=== PATIENT | male | born 1935 | race Caucasian/White ===

== ENCOUNTER → 2018-09-08 | Outpatient (CLI) | payer BC, MEDICARE, OTHER ==
--- NOTE | 2018-09-09 07:30 | CT ---
EXAMINATION TYPE: CT chest w con DATE OF EXAM: 09/08/2018 COMPARISON: NONE HISTORY: abnormal lung findings CT DLP: 188.7 mGycm. Automated Exposure Control for Dose Reduction was Utilized. TECHNIQUE: CT scan of the thorax is performed following with IV Contrast, patient injected with 100 mL of Isovue 300. FINDINGS: LUNGS: There is background of advanced underlying emphysematous change. There is left apical heteroge neous mass abutting the lateral pleura measuring 5.3 x 6.2 cm transversely axial image 11. Mass measu res roughly 4.9 cm craniocaudal dimension abutting the lung apex not definitively invading chest wall or obstructing supraclavicular vessels. A few additional scattered small nodules of uncertain significance. For reference 4 mm subpleural nod ule or nodular opacity axial image 38 near level of lingula. For reference 3 mm right middle lobe nod ule axial image 48. Elevated left hemidiaphragm is seen. No pleural effusion or pneumothorax is evident. Tracheobronchial tree is patent. No suspicious consolidation is present. MEDIASTINUM: There are no greater than 1 cm hilar or mediastinal lymph nodes. No cardiomegaly or pe ricardial effusion is seen. There is moderate to severe 3 vessel coronary artery calcification. OTHER: There is nonspecific 2.0 x 1.8 cm cm right adrenal mass axial image 16 which metastatic lesion cannot be excluded IMPRESSION: 1. Background of advanced emphysematous change with lateral left apical mass abutting pleura strongly suspicious for neoplasm. Nonspecific right adrenal 2.0 cm mass in which metastatic disease cannot BE excluded. Imaging guided biopsy for tissue sampling can be performed if desired.
== END ==
LOC: RADCTMAIN 16:33
PROVIDERS: ATTEND Physician Assistant Medical
DX: J43.9 Emphysema, unspecified (principal)
CPT/HCPCS: 82565; 84520; 71260; 36415; Q9967

== ENCOUNTER 2018-10-08 09:40 | Day surgery (SDC) | payer MEDICARE, BC ==
[2018-10-05 10:30] VITALS: BMI 19.9
[~2018-10-08 09:40] MED LIST: ALBUTEROL NEB (CONC) 2.5 MG/0.5 ML INHALATION ONE; ATROPINE SULFATE 0.4 MG/ML 1 ML VIAL IM ONE; DEXAMETHASONE SOD PHOSPHATE 10 MG/ML 1 ML VIAL IV ONE; HYDROmorphone 0.5 MG/0.5 ML SYRINGE IVP PRN; LACTATED RINGERS 1,000 ML IV SCH; LIDOCAINE 1% 20 ML VIAL (10MG/ML) FOR IV START INTRADERMA PRN; LIDOCAINE 2% (PF) 20 MG/ML 10 ML AMP INHALATION ONE; LIDOCAINE VISCOUS 300 MG/15 ML CUP MUCOUS MEM ONE; MIDAZOLAM 2 MG/2 ML VIAL IV PRN; ONDANSETRON 4 MG/2 ML VIAL IVP ONE; SCOPOLAMINE 1.5MG/72HR PATCH TRANSDERM ONE; SODIUM CHLORIDE 0.9% 1,000 ML IV SCH
[2018-10-08] MEDS ORDERED: ROCURONIUM BROMIDE 10 MG/ML 10 ML VIAL IV ONE (12:41)
[2018-10-08] MEDS ORDERED: PHENYLEPHRINE-0.9% NACL SYG 1 MG/10 ML SYRINGE ONE (12:41)
[2018-10-08] MEDS ORDERED: NEOSTIGMINE 1 MG/ML 10 ML VIAL ONE (12:41)
[2018-10-08] MEDS ORDERED: PROPOFOL 10 MG/ML 20 ML VIAL IV ONE (12:41)
[2018-10-08] MEDS ORDERED: GLYCOPYRROLATE 0.2 MG/ML 2 ML VIAL ONE (12:41)
[2018-10-08] MEDS ORDERED: LIDOCAINE 1% INJ 10MG/ML (20 ML MDV) ONE (12:41)
[2018-10-08] MEDS ORDERED: LACTATED RINGERS 1,000 ML IV ONE (13:56)
[2018-10-08 14:10] VITALS: RESP 16; TEMP 97
--- NOTE | 2018-10-08 14:10 | CT ---
EXAMINATION TYPE: CT Chest wo zonia Matta Protocol DATE OF EXAM: 10/08/2018 COMPARISON: 09/08/2018 HISTORY: 83-year-old male for bronchial navigation, PreOp scan TECHNIQUE: Contiguous axial scanning of the chest without IV contrast. Both inspiratory and expirator y views were obtained for navigational purposes. Coronal and sagittal reconstructions performed. CT DLP: 511 mGycm Automated exposure control for dose reduction was used. FINDINGS: Heart normal size without pericardial effusion. Mild coronary vessel calcifications. Aortic valvular calcifications. Aorta root appears aneurysmal at 4.3 cm. Moderate arthroscopic arch c alcifications with conventional arch vessel branching anatomy. Upper descending thoracic aorta aneury smal at 3.6 cm. Mid descending thoracic aorta mildly aneurysmal at 3.2 cm. Scattered nonenlarged mediastinal lymph nodes are demonstrated. There is moderately advanced emphysema anomaly in the upper lungs. There is a tumor within the latera l left apex measuring 7.6 cm. The mass tightly abuts the pleural surface and early invasion into the parietal pleura or chest wall is difficult to exclude such as within the first intercostal space, axi al image 12. 3 mm right middle lobe pulmonary nodule is unchanged, nonspecific. No consolidation or pleural effusion. Visualized upper abdomen shows moderate atherosclerotic calcifications in the abdominal aorta and a t iny fatty embolus or hernia. 2 cm right adrenal nodule shows attenuation of 16 Hounsfield units which is indeterminate Bones: No osseous destructive process. IMPRESSION: IMAGING PERFORMED FOR ENDOBRONCHIAL NAVIGATION PURPOSES. REDEMONSTRATED LATERAL LEFT APICAL 7.6 CM MA SS WITH POSSIBLE EARLY PARIETAL PLEURA/CHEST WALL INVASION PARTICULARLY IN THE REGION OF THE FIRST IN TERCOSTAL SPACE. BACKGROUND OF COPD WITH MODERATE EMPHYSEMA. STABLE 3 MM RIGHT MIDDLE LOBE PULMONARY NODULE. 2 CM RIGHT ADRENAL NODULE HAS ATTENUATION OF 16 HOUNSFIELD UNITS WHICH IS SOMEWHAT LOW BUT INDETERMIN ATE. ADRENAL ADENOMA IS A DIFFERENTIAL CONSIDERATION RATHER THAN METASTATIC DISEASE. DIFFUSE ANEURYSMAL THORACIC AORTA (ROOT 4.3 CM AND UPPER DESCENDING 3.6 CM).
--- NOTE | 2018-10-08 14:31 | PCN ---
PROCEDURE NOTE NAVIGATIONAL BRONCHOSCOPY: The operators were Dr. Mcgee and Dr. Hoskins. The patient was done in the operating, room #3. He was done under general anesthesia. Dr. Prajapati and SAM Masterson provided anesthesia. There was informed consent. There was universal timeout. After the patient was properly anesthetized and sedated, the bronchoscope was inserted through the bronchoscope adapter, connected to the endotracheal tube. Under the computer guided images of the electromagnetic navigational device, we were able to localize the lesion in the left upper lobe. We did transbronchial biopsies. We did probably 6 or 7 of those. In addition, we did brushes to the left upper lobe and then transbronchial needle aspiration biopsies. We also washed that area. We did have Pathology standing by. They looked at the TBNAs and said that they were positive for [id number] lung cancer. The patient tolerated the procedure well. Will do a chest x-ray. The patient will be recovered. There was no immediate complications. The patient will follow up with me in the office. MMODL / IJN: [id number] /
--- NOTE | 2018-10-08 14:38 | XR ---
EXAMINATION TYPE: XR chest 1V portable DATE OF EXAM: 10/08/2018 Comparison: CT same day Clinical History: 83-year-old male POST LT LUNG BX Findings: Heart normal size. Aorta within normal limits. Moderate emphysema. Lateral left apical masses demonst rated. Some adjacent groundglass could relate to postbiopsy changes. No appreciable pneumothorax. The re is asymmetric widening of the left posterior second intercostal space that may support some early chest wall invasion. No appreciable pneumothorax. Impression: COPD with lateral left apical mass. Some mild surrounding groundglass could reflect postbiopsy change s. Difficult to exclude early chest wall invasion given asymmetric widening of the left posterior sec ond intercostal space. No appreciable pneumothorax.
[2018-10-08 15:15] VITALS: BP 123/59; PULSE 61
== END 2018-10-08 15:57 | disposition home or self-care (01) ==
LOC: ORWHC2ENDO 09:40
PROVIDERS: ATTEND Internal Medicine Critical Care Medicine
DX: C34.12 Malignant neoplasm of upper lobe, left bronchus or lung (principal); J44.9 Chronic obstructive pulmonary disease, unspecified; I10 Essential (primary) hypertension; Z85.46 Personal history of malignant neoplasm of prostate; Z85.51 Personal history of malignant neoplasm of bladder; Z79.1 Long term (current) use of non-steroidal anti-inflammatories (NSAID); Z79.899 Other long term (current) drug therapy; Z87.891 Personal history of nicotine dependence; Z79.82 Long term (current) use of aspirin
CPT/HCPCS: 88104; 88108; 88305; 88173; 88342; 88341; 71045; 71250; 31628; 31623; 31627; J1100; J2710; J2405; J2001; J2370; J2704; 31624; 31625; 31633

== ENCOUNTER → 2018-10-10 | Outpatient (CLI) | payer MEDICARE, BC ==
--- NOTE | 2018-10-11 15:43 | PE ---
EXAMINATION TYPE: PET CT fusion skull to thigh DATE OF EXAM: 10/10/2018 COMPARISON: CT chest 09/08/2018 Prior PET/CT: None HISTORY: Lung nodule, history of prostate cancer TECHNIQUE: Following the intravenous administration of 13.33 mCi of F-18 FDG, whole body images are performed from the skull base to the midthigh. Images are reviewed on the computer in the coronal, a xial, and sagittal planes. Reconstructed rotating images are created on independent workstation and reviewed on the computer. A localization and attenuation correction CT is performed in conjunction with the PET scan. DLP: 337.04 mGycm SCAN: Initial Blood glucose: 100 mg/dL Average Mediastinum SUV: 1.21 Average Liver SUV: 1.58 FINDINGS: NECK: Some muscular uptake is along the anterior neck. This is symmetrical and bilateral. No suspici ous uptake is evident. THORAX: There is a large left apical mass with a marked increase SUV of 9.47. Primary and metastatic disease considered. No suspicious uptake within the hilum is evident. ABDOMEN: No suspicious uptake PELVIS: No suspicious uptake. Brachii therapy seeds are present. Suspicious uptake within the prostat e is not identified. OSSEOUS STRUCTURES: No abnormal uptake LOCALIZATION CT: Ascending thoracic aorta which is calcified measures 3.2 cm. The main pulmonary clari ry the bifurcation measures 2.2 cm. Left apical mass measures approximately 6.9 cm in diameter. No tapia spicious enlarged mediastinal adenopathy is evident. Moderate coronary artery calcifications present. There is a 0.3 cm inferior pole nonobstructing renal stone. COMPARISON: Lung mass appears larger than the comparison study dated 09/08/2018, previously measuring 6 .1 cm. IMPRESSION: 1. Left apical mass compatible with neoplasm. Primary and metastatic disease could be considered. 2. No suspicious additional foci of uptake to suggest metastatic disease.
== END | disposition home or self-care (01) ==
LOC: RADPETMAIN 13:42
PROVIDERS: ATTEND Internal Medicine Critical Care Medicine
DX: R91.8 Other nonspecific abnormal finding of lung field (principal)
CPT/HCPCS: 78815; A9552

== ENCOUNTER → 2018-11-09 | Outpatient (CLI) | payer MEDICARE, BC ==
[2018-11-09 15:21] LABS: Basophils % (A) 0 %; Eosinophils % (A) 0 %; HCT 34.1 % (39.0-53.0); HGB 10.5 gm/dL (13.0-17.5); Hypochromasia Slight; Lymphocytes % (A) 22 %; MCH 28.3 pg (25.0-35.0); MCHC 30.7 g/dL (31.0-37.0); MCV 92.1 fL (80.0-100.0); Monocytes # (A) 0.7 k/uL (0-1.0); Monocytes % (A) 7 %; Neutrophils # (A) 6.2 k/uL (1.3-7.7); Neutrophils % (A) 67 %; Platelet Count 478 k/uL (150-450); RDW 14.6 % (11.5-15.5); WBC 9.2 k/uL (3.8-10.6)
[2018-11-09 15:28] LABS: Partial Thromboplastin Time 26.5 sec (22.0-30.0); Prothrombin Time 10.6 sec (9.0-12.0)
[2018-11-09 15:44] LABS: Anion Gap 4 mmol/L; Blood Urea Nitrogen 15 mg/dL (9-20); Carbon Dioxide 29 mmol/L (22-30); Chloride 106 mmol/L (98-107); Potassium 4.5 mmol/L (3.5-5.1); Sodium 139 mmol/L (137-145)
== END | disposition home or self-care (01) ==
LOC: LABPAT 11-05 15:45
PROVIDERS: ATTEND Thoracic Surgery (Cardiothoracic Vascular Surgery)
DX: Z01.812 Encounter for preprocedural laboratory examination (principal); C34.12 Malignant neoplasm of upper lobe, left bronchus or lung
CPT/HCPCS: 36415; 80051; 82565; 84520; 85025; 85610; 85730

== ENCOUNTER → 2018-11-10 | Outpatient (CLI) | payer MEDICARE, BC | END | disposition home or self-care (01) | LOC: LABPAT 12:01 | PROVIDERS: ATTEND Thoracic Surgery (Cardiothoracic Vascular Surgery) | DX: Z01.812 Encounter for preprocedural laboratory examination (principal); C34.12 Malignant neoplasm of upper lobe, left bronchus or lung | CPT/HCPCS: 86850; 86900; 86901 ==

== ENCOUNTER 2018-11-19 05:47 | Inpatient (IN) | payer MEDICARE, BC ==
[~2018-11-19 05:47] MED LIST changes: -ALBUTEROL NEB (CONC) 2.5 MG/0.5 ML INHALATION ONE; -ATROPINE SULFATE 0.4 MG/ML 1 ML VIAL IM ONE; -DEXAMETHASONE SOD PHOSPHATE 10 MG/ML 1 ML VIAL IV ONE; -HYDROmorphone 0.5 MG/0.5 ML SYRINGE IVP PRN; -LACTATED RINGERS 1,000 ML IV SCH; -LIDOCAINE 2% (PF) 20 MG/ML 10 ML AMP INHALATION ONE; -LIDOCAINE VISCOUS 300 MG/15 ML CUP MUCOUS MEM ONE; -MIDAZOLAM 2 MG/2 ML VIAL IV PRN; -SCOPOLAMINE 1.5MG/72HR PATCH TRANSDERM ONE; -SODIUM CHLORIDE 0.9% 1,000 ML IV SCH; +ceFAZolin IN SWFI 2 GM/20 ML SYRINGE IVP ONE
[2018-11-19] MEDS: LACTATED RINGERS 1,000 ML IV SCH ×2 (06:37→06:45)
[2018-11-19] MEDS ORDERED: MIDAZOLAM (PF) 2 MG/2 ML VIAL IV ONE (06:51)
[2018-11-19] MEDS ORDERED: ePHEDrine SULFATE/0.9% NACL/PF 50 MG/5 ML SYRINGE IV ONE (07:42)
[2018-11-19] MEDS ORDERED: GLYCOPYRROLATE 0.2 MG/ML 2 ML VIAL ONE (07:42)
[2018-11-19] MEDS ORDERED: WATER FOR INJECTION, STERILE 10 ML VIAL IV ONE (07:42)
[2018-11-19] MEDS ORDERED: HYDROmorphone (PF) 1 MG/ML ONE (07:42)
[2018-11-19] MEDS ORDERED: PROPOFOL 10 MG/ML 20 ML VIAL IV ONE (07:42)
[2018-11-19] MEDS ORDERED: fentaNYL (PF) 50 MCG/ML 2 ML AMP ONE (07:42)
[2018-11-19] MEDS ORDERED: ALBUMIN HUMAN 5% (25gm) 500 ML VIAL IVPB ONE (07:42)
[2018-11-19] MEDS ORDERED: SUCCINYLCHOLINE CHLORIDE 100 MG/5 ML SYR IV ONE (07:42)
[2018-11-19] MEDS ORDERED: ROCURONIUM BROMIDE 10 MG/ML 10 ML VIAL IV ONE (07:42)
[2018-11-19] MEDS ORDERED: PHENYLEPHRINE-0.9% NACL SYG 1 MG/10 ML SYRINGE ONE (07:42)
[2018-11-19] MEDS ORDERED: NEOSTIGMINE 1 MG/ML 10 ML VIAL ONE (07:42)
[2018-11-19] MEDS ORDERED: LIDOCAINE 1% INJ 10MG/ML (20 ML MDV) ONE (07:42)
[2018-11-19] MEDS ORDERED: BUPIVACAINE (PF) 0.5% 30 ML VIAL SQ ONE (08:20)
[2018-11-19] MEDS ORDERED: LACTATED RINGERS 1,000 ML IV ONE ×2 (08:53→10:00)
[2018-11-19] MEDS ORDERED: SODIUM CHLORIDE 0.9% 500 ML 500 ML IV ONE (11:15)
[2018-11-19 13:12] LABS: ABG Base Excess -3.7 mmol/L; ABG HCO3 21 mmol/L (21-25); ABG Oxygen Saturation 99.1 % (94-97); ABG PCO2 40 mmHg (35-45); ABG PH 7.34 (7.35-7.45); ABG PO2 220 mmHg (83-108)
[2018-11-19 13:57] LABS: Basophils % (A) 0 %; Eosinophils % (A) 0 %; HCT 24.8 % (39.0-53.0); Lymphocytes # (A) 0.7 k/uL (1.0-4.8); Lymphocytes % (A) 6 %; MCH 29.9 pg (25.0-35.0); MCHC 32.5 g/dL (31.0-37.0); Mean Platelet Volume 6.9; Monocytes # (A) 0.7 k/uL (0-1.0); Monocytes % (A) 7 %; Neutrophils # (A) 8.9 k/uL (1.3-7.7); Neutrophils % (A) 85 %; Platelet Count 253 k/uL (150-450); RBC 2.69 m/uL (4.30-5.90); WBC 10.4 k/uL (3.8-10.6)
[2018-11-19 14:00] LABS: HGB 8.1 gm/dL (13.0-17.5)
[2018-11-19] MEDS: HYDROmorphone 0.5 MG/0.5 ML SYRINGE IVP PRN ×5 (14:29→15:27)
--- NOTE | 2018-11-19 14:38 | XR ---
EXAMINATION TYPE: XR chest 1V portable DATE OF EXAM: 11/19/2018 COMPARISON: Prior chest x-ray 10/08/2018 HISTORY: Thoracotomy, chest tube placement TECHNIQUE: Single frontal view of the chest is obtained. FINDINGS: 2 left-sided chest tubes have been placed, the abnormal density in left lung apex as numbe ring are seen. Second and third ribs have been at least partially removed. There is extensive subcuta neous emphysema. No evident pneumothorax. Volume loss present in the left hemithorax. The aorta is de nse. Heart shows a stable appearance. IMPRESSION: Satisfactory postoperative chest x-ray.
[2018-11-19] MEDS ORDERED: SODIUM CHLORIDE 0.9% 1,000 ML IV ONE ×3 (14:42)
[2018-11-19] MEDS ORDERED: NALBUPHINE 10 MG/ML (1 ML AMP) IV PRN (15:54)
[2018-11-19] MEDS ORDERED: NALOXONE 0.4 MG/ML 1 ML VIAL IV PRN (15:54)
[2018-11-19] MEDS ORDERED: diphenhydrAMINE 50 MG/ML 1 ML VIAL IVP PRN (15:54)
[2018-11-19] MEDS ORDERED: ROPIVACAINE 250 MG, HYDROMORPHONE (PF) 5 MG in SODIUM CHLORIDE 0.9% 200 ML EPIDURAL PRN (15:54)
--- NOTE | 2018-11-19 16:30 | P.OP ---
Date of Procedure: 11/19/18 Preoperative Diagnosis: Left apical lung carcinoma Postoperative Diagnosis: Same, invasion of chest wall Procedure(s) Performed: Left thoracoscopy with attempted robotic left upper lobectomy converted to open with en bloc chest wall resection of the apical tumor including ribs 2 and 3 Anesthesia: LAUREEN Surgeon: Lloyd Sexton Clay Artist #1: Catracho Weller Estimated Blood Loss (ml): 1,000 IV fluids (ml): 2,000 Urine output (ml): 500 Pathology: other (Left upper lobe with en bloc resection of ribs 2 and 3 with portion of chest wall, lymph node stations 7, L 10, L 11, L6, L5) Condition: stable Disposition: PACU Indications for Procedure: 83-year-old gentleman presents with shoulder pain. Found to have a large tumor of the left upper lobe adjacent to the chest wall with no immediate evidence of rib involvement or destruction. PET scan was negative for lymph node involvement. There was no evidence of distant metastasis. Patient refused radiation treatments preoperatively and so we decided to proceed directly to surgery. Operative Findings: At thoracoscopy, there was a large apical tumor which was adherent to the chest wall. Some of the lung peeled easily away from the pleura however the tumor was more densely adherent by the fourth third second and first ribs. That point we decided to proceed with the lobectomy dissection. This was quite challenging due to markedly inflammatory change in the chest cavity. Multiple lymph nodes were resected and these all appeared to be anthracotic and there was no evidence of gross disease. When we got to the last 2-3 branches of the pulmonary artery proximally after completing the rest of the lobectomy dissection prior to addressing the chest wall we develop some bleeding from the pulmonary artery and opted to open. Upon opening there was a very small laceration in the pulmonary artery between the first 2 branches of the pulmonary artery. We were able to control this and complete the lobectomy opened and then proceed with the chest wall. We were able to obtain a grossly R0 resection of the tumor resecting the second and third ribs. We did dissect out the left subclavian artery and vein as well as the brachial plexus identified all the structures were careful not to injure them the second and third ribs were resected from very near their takeoff from the spine posteriorly to near the costal cartilage anteriorly. The tumor did appear to wrap around the second and third ribs and required resection of the intercostal muscles between from the inferior portion of the first rib to the superior portion of the first rib as well as some of the chest wall musculature and soft tissue superficial to the ribs. Description of Procedure: The patient was brought to the operating room, placed supine on the operating table, anesthetized and intubated with a 39 mm double-lumen endotracheal tube. Tube was positioned and secured using fiberoptic bronchoscopic guidance. Patient was turned in the right lateral decubitus position and the left chest sterilely prepped and draped. Initially 4 small incisions were made for the robot. These were made in the eighth and ninth interspace for the 3 lower ones and a fourth one up in the fifth interspace just below where the tumor was adherent. Robotic ports were placed in a working port was placed at the level of the diaphragm between the 2 most anterior ports. The robot was docked and we first explored the chest. There were some adhesions of the lung to the chest wall superiorly and these were taken down until we ran into spot where it was evident that the tumor was invading the chest wall. This was demarcated as best as we could. Considerable inflammatory response in the chest. The fissures were near complete and were developed as much as possible. We then took down the inferior pulmonary ligament and dissected posteriorly identifying the inferior pulmonary vein. A large bronchial artery was present superior to the inferior pulmonary vein running up beneath the mainstem bronchus. This was divided with the vessel sealer. Dissection along the inferior portion of the mainstem bronchus to the level VII lymph nodes which were resected and sent for permanent section. Dissection was then carried superiorly along the mainstem bronchus and the L 10 lymph nodes were resected. Dissection was carried up to the superior segmental branch of the pulmonary artery. Some L 11 lymph nodes were resected from this region. Dissection was carried up posteriorly in the mediastinum and the L6 lymph nodes were resected. We now shifted anteriorly and identified the superior pulmonary vein dissecting around it and eventually ligating and dividing it with a robotic vascular stapler. Dissection was carried back into the hilum and the lingular branch of the pulmonary artery was identified. It was a very large branch. We were able to encircle it and ligated and divided with a robotic stapler. This allowed us access to the upper lobe bronchus. We dissected around the upper lobe bronchus. We again encountered a large bronchial artery which bled quite a bit. This was controlled with electrocautery and eventually with the vessel sealer. We then able to encircle the bronchus and ligated and divided with a robotic green stapler. This gave us access to the remaining pulmonary artery branches. More proximally got on the pulmonary artery branches to more inflammatory response we ran into. 2 more branches were taken successfully with the robotic stapler and there appeared to be to more remaining.'s was 1 we developed some bleeding from the pulmonary artery and applied direct pressure and decided to open the chest. With direct pressure applied, robot was undocked and a posterior lateral thoracotomy incision was made. Latissimus and serratus muscles were divided. The chest was entered in the fourth interspace. The intercostal muscles were undercut anteriorly and posteriorly to allow spreading of the ribs and good access into the chest. There were apparently 2 remaining branches of the pulmonary artery and the tear appeared to be between them. As a small tear that was not bleeding acutely until he started dissected around both branches again. Able to divide both the proximal and distal branch using vascular stapler. As we dissected more to try to get control of the pulmonary artery tear which we were controlling with direct pressure we discovered one more remaining branch of the pulmonary artery and we again ligated and divided this with a vascular stapler. Having freed all the proximal branches were now able to encircle the pulmonary artery and get a vascular clamp on the left main pulmonary artery proximal to our tear. This allowed us to suture close the tear with 3 6-0 Pro jose roberto pledgeted sutures. Blood loss for this component of the procedure was about 800-900 mL. 2 packed cells were given and the patient remained hemodynamically stable throughout. We now completed our hilar dissection by resecting the superior most portion of the pleural reflection. Now began chest wall resection. Dissected tumor was dissected off the fourth rib and then the third rib was divided proximally and distally to the tumor involvement. This allowed us to dissected up higher onto the second rib and again divide the second rib second rib proximally and distally. Now completed dissection up near the first rib. The subclavian artery and vein were identified as was the brachial plexus posteriorly. Careful dissection was carried out along the first rib and along the structures being careful not to injure them. At all times we tried to remain in the soft tissue superficial to the tumor. Any time we saw tumor we again went deeper into the normal tissue in order to maintain good margins. Eventually completed the chest wall resection and were able to remove the specimen. Was passed off to pathology and reviewed with them. We carefully examined our tumor bed and could identify no area where there was residual tumor. Hemostasis was obtained with electrocautery throughout. Chest cavity was now copiously irrigated with warm water. All bleeding was controlled. There were no significant air leaks noted. Cryoablation of the intercostal spaces at levels 3456 and 7 was performed with the [employer] Endo ice system. Perform this at the level of the second interspace as the rib had been resected too proximally. 2 chest tubes were placed, a 36-Amharic posteriorly and a 28 anteriorly and brought out through separate stab incisions. These were connected to Pleur-evac. Ribs were reapproximated with 3 [id number] of #1 sutures, fourth rib being reapproximated to the fifth. Muscle layers were closed with 0 Vicryl and the subcutaneous and subcuticular layers with layers of Vicryl suture. Robotic incisions were also closed with layers of Vicryl suture. Skin glue and dry sterile dressings were applied. The patient was turned supine and extubated and transferred to recovery in stable condition. Anesthesia placed an epidural in the recovery room. The patient tolerated the procedure well.
[2018-11-19] MEDS ORDERED: NALOXONE 0.4 MG/ML 10 ML VIAL IVP ONE (16:35)
[2018-11-19 16:44] LABS: Glucose,Whole Blood 175 mg/dL (75-99)
[2018-11-19 17:15] LABS: Glucose,Whole Blood 153 mg/dL (75-99)
[2018-11-19] MEDS ORDERED: ONDANSETRON 4 MG/2 ML VIAL IVP PRN (17:25)
[2018-11-19] MEDS ORDERED: METOCLOPRAMIDE 5 MG/ML 2 ML VIAL IVP PRN (17:25)
[2018-11-19] MEDS ORDERED: IPRATROPIUM-ALBUTEROL 3 ML NEB IH PRN (17:25)
[2018-11-19] MEDS ORDERED: BISACODYL 10 MG SUPP RECTAL PRN (17:25)
[2018-11-19] MEDS: HEPARIN SODIUM,PORCINE 5,000 UNIT/ML 1 ML VIAL SQ SCH ×2 (17:40→23:27)
[2018-11-19] MEDS: DEXTROSE 5%-0.45% NACL 1,000 ML IV SCH (17:40)
[2018-11-19] MEDS: ACETAMINOPHEN IV (For NPO) 1,000 MG in EMPTY BAG 1 BAG IVPB SCH ×2 (18:15→23:25)
[2018-11-19] MEDS: ceFAZolin IN SWFI 2 GM/20 ML SYRINGE IVP SCH (18:15)
--- NOTE | 2018-11-19 18:37 | XR ---
EXAMINATION TYPE: XR chest 1V DATE OF EXAM: 11/19/2018 COMPARISON: Today HISTORY: Postop TECHNIQUE: Single frontal view of the chest is obtained. FINDINGS: There are 2 left-sided chest tubes. There is soft tissue air on the left chest wall. I see no pneumothorax. Heart is shifted slightly to the left side. IMPRESSION: Recent surgery with some volume loss in the left lung related to left upper lobectomy. N o heart failure. No change compared to exam earlier today.
[2018-11-19] MEDS: IPRATROPIUM-ALBUTEROL 3 ML NEB IH SCH ×2 (19:58→19:59)
[2018-11-20] MEDS: ceFAZolin IN SWFI 2 GM/20 ML SYRINGE IVP SCH (02:01)
[2018-11-20 04:22] LABS: Basophils % (A) 0 %; Eosinophils % (A) 0 %; HCT 31.5 % (39.0-53.0); HGB 9.3 gm/dL (13.0-17.5); Hypochromasia Moderate; Lymphocytes # (A) 0.9 k/uL (1.0-4.8); Lymphocytes % (A) 6 %; MCH 28.1 pg (25.0-35.0); MCHC 29.6 g/dL (31.0-37.0); MCV 94.9 fL (80.0-100.0); Mean Platelet Volume 7.1; Monocytes # (A) 0.9 k/uL (0-1.0); Monocytes % (A) 6 %; Neutrophils # (A) 12.1 k/uL (1.3-7.7); Neutrophils % (A) 85 %; Platelet Count 259 k/uL (150-450); RBC 3.32 m/uL (4.30-5.90); RDW 14.8 % (11.5-15.5); WBC 14.3 k/uL (3.8-10.6)
[2018-11-20 04:39] LABS: ALT 19 U/L (21-72); AST 33 U/L (17-59); Albumin 2.1 g/dL (3.5-5.0); Alkaline Phosphatase 52 U/L (38-126); Anion Gap 4 mmol/L; Blood Urea Nitrogen 21 mg/dL (9-20); Calcium 7.9 mg/dL (8.4-10.2); Carbon Dioxide 25 mmol/L (22-30); Chloride 108 mmol/L (98-107); Glucose 128 mg/dL (74-99); Potassium 4.9 mmol/L (3.5-5.1); Sodium 137 mmol/L (137-145); Total Bilirubin 0.5 mg/dL (0.2-1.3); Total Protein 4.6 g/dL (6.3-8.2)
--- NOTE | 2018-11-20 05:00 | P.PN ---
Progress Note - Text Progress Note Date: 11/20/18 83-year-old male postop day #1 left thoracotomy with left upper lobe section. Epidural catheter day #2. Epidural solution consisting of 0.1% ropivacaine and 20 mg Dilaudid per mL. Patient resting comfortably with no issues overnight. Current rate is at 2 ML's an hour. He has not required any supplemental medication. Per nurse not complaining of any dyspnea, shortness of breath, pain with breathing. Plan is to continue epidural settings at current rate and to titrate as needed and maintain hemodynamic stability.
--- NOTE | 2018-11-20 07:11 | CONS ---
CONSULTATION PULMONARY/CRITICAL CARE CONSULTATION: DATE OF CONSULTATION: November 20, 2018 This is a patient who I saw for navigational bronchoscopy back on October 08. At that time, he had a navigational bronchoscopy for a lesion in the left upper lobe. The emilie bronch came back positive for poorly differentiated non-small cell lung cancer. I sent him to Dr. Sexton for consideration of lobectomy. He initially had a presurgical PET scan which did not show any distant disease, disease primarily confined to the left upper lobe. The plan was to do a robotically assisted left upper lobectomy. Unfortunately, because of the extent of the tumor, the patient had a left thoracotomy with en bloc chest wall resection, rib resection of number 2 and 3 and a significant lymph node dissection. It was done under general anesthetic. The patient had a number of lymph nodes evaluated including L7, L10, L11, L6 and L5. The patient did well postoperatively and was extubated in the recovery area and transferred to the ICU for further monitoring. I did speak to Dr. Sexton about the case. The patient did receive 2 units of blood during the procedure. Currently, he is on 4 L nasal cannula. His IV is D5 0.45 at 40 mL an hour. He does have an epidural running. He is awake and alert. His chest x-ray shows a small amount of subcutaneous emphysema. ALLERGIES: No known allergies. MEDICATIONS: Home medications include Hytrin, nicotine patch, and Tylenol. PAST MEDICAL HISTORY: Past medical history includes BPH and COPD. SURGICAL HISTORY: Surgical history is mostly remote. He did have a navigational bronchoscopy on October 08. SOCIAL HISTORY: Social history is positive for previous heavy tobacco use. OCCUPATIONAL HISTORY: Noncontributory. REVIEW OF SYSTEMS: CONSTITUTIONAL: Negative. NEUROLOGIC: Negative. HEENT: Negative. CARDIOVASCULAR: Negative. PULMONARY: Negative. GI: Negative. : Negative. RHEUMATOLOGIC: Negative. IMMUNOLOGIC: Negative. ENDOCRINOLOGIC: Negative. DERMATOLOGIC: Negative. His only really complaint at this time is some pain at the surgical site. That is to be expected. But he seemed relatively comfortable. PHYSICAL EXAMINATION: Current vital signs include temperature 97.5, heart rate 58, respiratory rate 19, blood pressure 98/45, mean 62 and a 4 L saturation 98%. He appears in no acute distress. He is awake and alert. He does respond appropriately. HEENT: Examination is grossly unremarkable. Nasal O2 noted. NECK: Supple. Full range of motion. No adenopathy. CARDIOVASCULAR: Examination reveals regular rhythm and rate. Heart rate 58. S1, S2 normal. No distinct murmur. LUNGS: Reveal diminished breath sounds throughout. A few scattered rhonchi. No crackles. No wheezes. ABDOMEN: Soft. Bowel sounds are heard. EXTREMITIES: Are intact. There is no cyanosis, clubbing, or edema. SKIN: Without rash. NEUROLOGIC: Examination is difficult to assess as he is somewhat sleepy, but he does move all 4 extremities well. He does appear to be alert and awake. LABS: Labs are reviewed. White count 14.3, hemoglobin 9.3, hematocrit 31.5, platelet count 259,000. Sodium 137, potassium 4.9, chloride 108, CO2 of 25. BUN and creatinine 21 and 0.79. Anion gap is normal at 4. Blood gases done yesterday show pO2 of 220, pCO2 of 40, a pH is 7.34. Chest x-ray done this morning shows 2 chest tubes on the left. There is some subcutaneous emphysema. Lung volumes on the left are reduced. Medications are reviewed. These are appropriate postsurgical medications including updrafts. ASSESSMENT: 1. Postoperative day #1 status post left thoracotomy with left upper lobe resection, lymph node dissection, and ribs 2 and 3 resection. 2. History of chronic obstructive pulmonary disease. 3. Poorly differentiated non-small cell lung cancer diagnosed by navigational bronchoscopy on October 08. 4. Benign prostatic hypertrophy. 5. Chronic obstructive pulmonary disease. 6. Previous history of heavy tobacco use. PLAN: I did speak to Dr. Sexton about the case. It was attempted to be done robotically. Unfortunately, because of chest wall invasion and involvement, as well as rib involvement, he had to do an open procedure. Nonetheless, the patient did very well. He is currently resting comfortably. He is on O2 at 4 L. His IV is D5 0.45 at 40. He does have an epidural in place. We will continue to follow and recommend incentive spirometry, deep breathing, coughing and clearing of secretions. Additional recommendations and suggestions are forthcoming. MMODL / IJN: [id number] /
[2018-11-20] MEDS: IPRATROPIUM-ALBUTEROL 3 ML NEB IH SCH ×4 (07:53→19:27)
--- NOTE | 2018-11-20 08:15 | XR ---
EXAMINATION TYPE: XR chest 1V DATE OF EXAM: 11/20/2018 COMPARISON: 11/19/2018 HISTORY: Postop TECHNIQUE: Single frontal view of the chest is obtained. FINDINGS: There is mixed air and soft tissue density overlying the left apex likely postsurgical. 2 left-sided chest tubes are seen with no sizable pneumothorax. Rib resection suggested. There is no co nsolidation and pleural effusion involving the left lung base. Underlying COPD noted and there is thi ckening of the right paratracheal stripe. IMPRESSION: 1. Mixed soft tissue and air attenuation left apex which likely is postsurgical but should be correla zaheer clinically. 2. There is increasing consolidation and pleural effusion involving the left lung base. 3. Persistent right paratracheal soft tissue fullness which is nonspecific by chest x-ray.
[2018-11-20] MEDS: NICOTINE 21MG/24HR PATCH TRANSDERM SCH (08:57)
[2018-11-20] MEDS: HEPARIN SODIUM,PORCINE 5,000 UNIT/ML 1 ML VIAL SQ SCH ×3 (08:57→23:42)
--- NOTE | 2018-11-20 12:09 | P.PN ---
Subjective Progress Note Date: 11/20/18 Principal diagnosis: Left apical lung carcinoma, invasion of chest wall, poorly differentiated non- small cell lung cancer diagnosed by navigational bronchoscopy on 10/08/2018, history of COPD, benign prostatic hypertrophy, chronic tobacco abuse, history of bladder cancer and prostate cancer and history of musculoskeletal injury involving his left shoulder. POD #1 left thoracoscopic with attempted robotic left upper lobectomy converted to open with en bloc chest wall resection of the apical tumor including ribs 2 and 3. The patient is laying in bed in the intensive care unit in no acute distress. He is complaining of left shoulder plain, denies any shortness of breath. Hemodynamically stable and is on no inotropic or pressure support. Epidural catheter remains in place at 2 mL per hour. Oxygen saturation are 96% on 4 L nasal cannula. Achieving 750 mL on his incentive spirometry. Left anterior and posterior chest tubes remain in place to low continuous wall suction -20 cm H2O. Intermittent airleak present. Draining thin serosanguineous drainage. Objective - Vital Signs Vital signs: Vital Signs Temp 96.3 F L 11/20/18 08:00 Pulse 73 11/20/18 10:00 Resp 25 H 11/20/18 10:00 BP 109/45 11/20/18 10:00 Pulse Ox 95 11/20/18 10:00 Intake & Output 11/19/18 11/20/18 11/20/18 18:59 06:59 18:59 Intake Total 6550 545 420 Output Total 2090 770 305 Balance 4460 -225 115 Weight 67.3 kg Intake: IV 4750 545 160 ACETAMINOPHEN IV (For NPO 100 ) 1,000 mg In Empty Bag 1 bag @ 400 mls/hr IVPB Q6HR [facility] Rx#:[id number] Dextrose 5%-0.45% NaCl 1, 120 445 160 000 ml @ 40 mls/hr IV . Q24H [facility] Rx#:[id number] Oral 260 Blood Product 1490 Rc As-1 Unit 310 [id number] Rc As-3 Unit 310 [id number] Rc Cpda-1 Unit 0 [id number] Other 310 Rc Cpda-1 Unit 310 [id number] Output: Drainage 230 430 130 Left Anterior Chest 180 50 Left Chest posterior A 230 250 80 Urine 560 340 175 Pleural Fluid 300 Estimated Blood Loss 1000 Other: Voiding Method Indwelling Catheter Indwelling Catheter Indwelling Catheter - Constitutional General appearance: Present: cooperative, no acute distress - Respiratory Details: Lungs sounds essentially clear to his bilateral upper lobes, few scattered crackles to his left lower lobe. Respirations are symmetrical and nonlabored. Oxygen saturation are 96% on 4 L nasal cannula. Achieving 750 mL on his incentive spirometry. Left pleural chest tubes anterior-posterior remain in place to low continuous wall suction -20 cm H2O. Draining thin serosanguineous drainage. Intermittent air leak is present. Left anterior chest tube with 210 mL output in the last 8 hours, 530 mL output since surgery. Left posterior pleural chest tube with 180 mL output in the last 8 hours, 550 mL output since surgery. - Cardiovascular Details: Regular rhythm and rate. S1 and S2 present, negative for S3, gallop or murmur. Bedside telemetry showing normal sinus rhythm heart rate 66. No edema present. Knee-high ELLI hose and sequential compression devices in place to his bilateral lower extremities. - Gastrointestinal Gastrointestinal Comment(s): Abdomen is soft, nontender and nondistended. Hypoactive bowel sounds all 4 abdominal quadrants. No guarding or rigidity. No organomegaly. - Genitourinary Genitourinary Comment(s): Quintero catheter for accurate I&O. Draining clear yellow urine. 240 mL output in the last 8 hours. - Integumentary Integumentary Comment(s): Skin is warm and dry. No clubbing or cyanosis is present. Left thoracotomy incision is clean, dry and approximated. Dressing is clean, dry and intact. Left chest thoracoscopy incision sites clean dry and intact. No drainage or redness present. Epidural site clean, dry and intact. - Neurologic Neurologic: Present: CNII-XII intact - Musculoskeletal Musculoskeletal: Present: gait normal, generalized weakness, strength equal bilaterally - Psychiatric Psychiatric: Present: A&O x's 3, appropriate affect, intact judgment & insight - Allied health notes Allied health notes reviewed: nursing - Labs CBC & Chem 7: 11/20/18 04:03 11/20/18 04:03 Labs: Abnormal Lab Results - Last 24 Hours (Table) 11/10/18 11/19/18 11/19/18 Range/Units 12:15 12:46 13:32 WBC (3.8-10.6) k/uL RBC 2.69 L (4.30-5.90) m/uL Hgb 8.1 L D (13.0-17.5) gm/dL Hct 24.8 L (39.0-53.0) % MCHC (31.0-37.0) g/dL Neutrophils # 8.9 H (1.3-7.7) k/uL Lymphocytes # 0.7 L (1.0-4.8) k/uL ABG pH 7.34 L (7.35-7.45) ABG pO2 220 H (83-108) mmHg ABG O2 Saturation 99.1 H (94-97) % Chloride (98-107) mmol/L BUN (9-20) mg/dL Glucose (74-99) mg/dL POC Glucose (mg/dL) (75-99) mg/dL Calcium (8.4-10.2) mg/dL ALT (21-72) U/L Total Protein (6.3-8.2) g/dL Albumin (3.5-5.0) g/dL Crossmatch See Detail 11/19/18 11/19/18 11/20/18 Range/Units 16:41 17:14 04:03 WBC 14.3 H (3.8-10.6) k/uL RBC 3.32 L (4.30-5.90) m/uL Hgb 9.3 L (13.0-17.5) gm/dL Hct 31.5 L (39.0-53.0) % MCHC 29.6 L (31.0-37.0) g/dL Neutrophils # 12.1 H (1.3-7.7) k/uL Lymphocytes # 0.9 L (1.0-4.8) k/uL ABG pH (7.35-7.45) ABG pO2 (83-108) mmHg ABG O2 Saturation (94-97) % Chloride (98-107) mmol/L BUN (9-20) mg/dL Glucose (74-99) mg/dL POC Glucose (mg/dL) 175 H 153 H (75-99) mg/dL Calcium (8.4-10.2) mg/dL ALT (21-72) U/L Total Protein (6.3-8.2) g/dL Albumin (3.5-5.0) g/dL Crossmatch 11/20/18 Range/Units 04:03 WBC (3.8-10.6) k/uL RBC (4.30-5.90) m/uL Hgb (13.0-17.5) gm/dL Hct (39.0-53.0) % MCHC (31.0-37.0) g/dL Neutrophils # (1.3-7.7) k/uL Lymphocytes # (1.0-4.8) k/uL ABG pH (7.35-7.45) ABG pO2 (83-108) mmHg ABG O2 Saturation (94-97) % Chloride 108 H (98-107) mmol/L BUN 21 H (9-20) mg/dL Glucose 128 H (74-99) mg/dL POC Glucose (mg/dL) (75-99) mg/dL Calcium 7.9 L (8.4-10.2) mg/dL ALT 19 L (21-72) U/L Total Protein 4.6 L (6.3-8.2) g/dL Albumin 2.1 L (3.5-5.0) g/dL Crossmatch - Imaging and Cardiology Chest x-ray: report reviewed, image reviewed Assessment and Plan Assessment: 1. Left apical lung carcinoma, and patient left chest wall, status post left upper lobectomy with en bloc chest wall resection of apical tumor including ribs 2 and 3 2. History of poorly differentiated non-small cell lung cancer diagnosed with navigational bronchoscopy 10/08/2017 3. Chronic obstructive pulmonary disease 4. History of bladder cancer 5. History of prostate cancer 6. Chronic tobacco dependence 7. History of musculoskeletal injury involving his left shoulder Plan: 1. Keep his left pleural chest tubes to low continuous wall suction for another 24 hours. 2. Pathology results are pending. 3. Epidural management per anesthesia. 4. Encourage use of his incentive spirometry every hour while awake. 5. Wean oxygen as tolerated, bronchodilators managed by pulmonary medicine. 6. Consult physical and occupational therapy for generalized postoperative weakness. 7. Discussed the importance of smoking cessation. 8. Pain management per when necessary orders. 9. Out of bed for all meals. Increase activity as tolerated. 10. Monitor daily labs and chest x-rays. 11. More recommendations to follow based on patient's clinical course. Time with Patient: Greater than 30
--- NOTE | 2018-11-20 16:07 | P.CONS ---
History of Present Illness - Reason for Consult Leukocytosis - History of Present Illness is an 83-year-old pleasant gentleman admitted for the elective left upper lobectomy patient underwent thoracotomy with en bloc chest resection. Resection #2 and 3 with lymph node dissection patient has a mediastinal and left-sided chest tube. Patient is clinically doing well did not move his bowels pass gas complaining of pain in the chest tube sites. Patient has an epidural in place. X-ray shows some subcutaneous emphysema and pleural effusion on the left side which is expected and patient has a chest tube in place now patient had lymph node involvement as well which for which patient underwent lymphadenectomy. Patient is a smoker cut down smoking to 8 cigarettes per day . Review of Systems REVIEW OF SYSTEMS: CONSTITUTIONAL: No fever, no malaise, no fatigue. HEENT: No recent visual problems or hearing problems. Denied any sore throat. CARDIOVASCULAR: No chest pain, orthopnea, PND, no palpitations, no syncope. PULMONARY: No shortness of breath, no cough, no hemoptysis. GASTROINTESTINAL: No diarrhea, no nausea, no vomiting, no abdominal pain. NEUROLOGICAL: No headaches, no weakness, no numbness. HEMATOLOGICAL: Denies any bleeding or petechiae. GENITOURINARY: Denies any burning micturition, frequency, or urgency. MUSCULOSKELETAL/RHEUMATOLOGICAL: Denies any joint pain, swelling, or any muscle pain. ENDOCRINE: Denies any polyuria or polydipsia. The rest of the 14-point review of systems is negative. Past Medical History Past Medical History: Cancer, Osteoarthritis (OA), Prostate Disorder Additional Past Medical History / Comment(s): hx. prostate cancer-tx,. Hx. of Bladder cancer., lung cancer, rupture ligaments lt shouder and arthritis History of Any Multi-Drug Resistant Organisms: None Reported Past Surgical History: Bladder Surgery, Heart Catheterization, Orthopedic Surgery, Prostate Surgery Additional Past Surgical History / Comment(s): cystoscopy, BLADDER TUMORS REMOVED, [facility]. EYE-CATARACT, Prostate surgery with seeds. Shattered knee as a child. Past Anesthesia/Blood Transfusion Reactions: No Reported Reaction Smoking Status: Current every day smoker - Past Family History Mother Family Medical History: No Reported History Medications and Allergies Home Medications Medication Instructions Recorded Confirmed Type Terazosin HCl [Hytrin] 10 mg PO HS 02/02/15 11/19/18 History Acetaminophen [Tylenol] 500 mg PO Q4-6H PRN 05/13/19 05/16/19 History Nicotine 21Mg/24Hr Patch [Habitrol 1 patch TRANSDERM DAILY 11/16/18 11/19/18 His tory 21Mg/24Hr Patch] Allergies Allergy/AdvReac Type Severity Reaction Status Date / Time No Known Allergies Allergy Verified 11/19/18 15:15 Physical Exam Vitals: Vital Signs Temp Pulse Pulse Resp BP BP Pulse Ox 11/20/18 15:41 62 11/20/18 14:00 90 15 127/64 92 L 11/20/18 13:00 90 25 H 120/62 92 L 11/20/18 12:00 97.0 F L 87 18 107/51 90 L 11/20/18 11:36 77 11/20/18 11:25 73 11/20/18 11:00 75 21 115/52 93 L 11/20/18 10:30 73 24 114/50 95 11/20/18 10:00 73 25 H 109/45 95 11/20/18 09:30 75 21 96/57 91 L 11/20/18 09:00 76 15 112/57 94 L 11/20/18 08:30 71 16 98/49 93 L 11/20/18 08:00 96.3 F L 78 16 107/57 93 L 11/20/18 07:54 69 11/20/18 07:30 66 13 106/53 95 11/20/18 07:00 63 16 97/49 97 11/20/18 06:30 62 12 106/53 95 11/20/18 06:00 68 15 104/43 96 11/20/18 05:30 70 16 99/54 98 11/20/18 05:00 63 14 98/50 98 11/20/18 04:30 58 L 8 L 98/45 98 11/20/18 04:00 97.5 F L 61 19 98/41 97 11/20/18 03:30 67 12 96/52 94 L 11/20/18 03:00 70 8 L 97/45 94 L 11/20/18 02:30 74 9 L 98/45 96 11/20/18 02:00 71 16 95/43 96 11/20/18 01:30 77 14 96/44 94 L 11/20/18 01:00 75 16 98/51 95 11/20/18 00:30 80 14 94/45 95 11/20/18 00:00 97.9 F 78 16 90/45 92 L 11/19/18 23:30 80 16 102/41 95 11/19/18 23:00 81 16 100/42 95 11/19/18 22:30 83 18 101/43 95 11/19/18 22:00 84 17 100/42 96 11/19/18 21:30 83 15 97/41 95 11/19/18 21:00 82 14 92/46 95 11/19/18 20:30 84 18 109/49 91 L 11/19/18 20:08 93 11/19/18 20:00 98.1 F 90 14 93/43 98 11/19/18 19:30 76 12 102/48 97 11/19/18 19:00 92 12 101/44 97 11/19/18 18:45 90 15 98/47 97 11/19/18 18:30 86 12 103/48 98 11/19/18 18:15 88 10 L 102/48 97 11/19/18 18:00 73 10 L 110/50 98 11/19/18 17:45 84 8 L 116/60 98 11/19/18 17:30 83 13 108/49 98 11/19/18 17:20 89 12 108/49 86 L 11/19/18 17:14 18 11/19/18 16:41 87 16 96/52 91 L 11/19/18 16:25 73 8 L 83/50 85 L 11/19/18 16:02 86 18 93/50 92 L Intake and Output 11/20/18 11/20/18 11/20/18 06:59 14:59 22:59 Intake Total 420 580 Output Total 650 515 Balance -230 65 Intake: IV 420 320 ACETAMINOPHEN IV (For NPO 100 ) 1,000 mg In Empty Bag 1 bag @ 400 mls/hr IVPB Q6HR [facility] Rx#:[id number] Dextrose 5%-0.45% NaCl 1, 320 320 000 ml @ 40 mls/hr IV . Q24H [facility] Rx#:[id number] Oral 260 Output: Drainage 400 290 Left Anterior Chest 180 160 Left Chest posterior A 220 130 Urine 250 225 Other: Voiding Method Indwelling Catheter Indwelling Catheter Weight 67.3 kg PHYSICAL EXAMINATION: GENERAL: The patient is alert and oriented x3, not in any acute distress. Well d eveloped, well nourished. HEENT: Pupils are round and equally reacting to light. EOMI. No scleral icterus. No conjunctival pallor. Normocephalic, atraumatic. No pharyngeal erythema. No thyromegaly. CARDIOVASCULAR: S1 and S2 present. No murmurs, rubs, or gallops. PULMONARY: Patient has a mediastinal and left chest tube ABDOMEN: Soft, nontender, nondistended, normoactive bowel sounds. No palpable organomegaly. MUSCULOSKELETAL: No joint swelling or deformity. EXTREMITIES: No cyanosis, clubbing, or pedal edema. NEUROLOGICAL: Gross neurological examination did not reveal any focal deficits. SKIN: No rashes. Results CBC & Chem 7: 11/20/18 04:03 11/20/18 04:03 Labs: Abnormal Lab Results - Last 24 Hours (Table) 11/10/18 11/19/18 11/19/18 Range/Units 12:15 16:41 17:14 WBC (3.8-10.6) k/uL RBC (4.30-5.90) m/uL Hgb (13.0-17.5) gm/dL Hct (39.0-53.0) % MCHC (31.0-37.0) g/dL Neutrophils # (1.3-7.7) k/uL Lymphocytes # (1.0-4.8) k/uL Chloride (98-107) mmol/L BUN (9-20) mg/dL Glucose (74-99) mg/dL POC Glucose (mg/dL) 175 H 153 H (75-99) mg/dL Calcium (8.4-10.2) mg/dL ALT (21-72) U/L Total Protein (6.3-8.2) g/dL Albumin (3.5-5.0) g/dL Crossmatch See Detail 11/20/18 11/20/18 Range/Units 04:03 04:03 WBC 14.3 H (3.8-10.6) k/uL RBC 3.32 L (4.30-5.90) m/uL Hgb 9.3 L (13.0-17.5) gm/dL Hct 31.5 L (39.0-53.0) % MCHC 29.6 L (31.0-37.0) g/dL Neutrophils # 12.1 H (1.3-7.7) k/uL Lymphocytes # 0.9 L (1.0-4.8) k/uL Chloride 108 H (98-107) mmol/L BUN 21 H (9-20) mg/dL Glucose 128 H (74-99) mg/dL POC Glucose (mg/dL) (75-99) mg/dL Calcium 7.9 L (8.4-10.2) mg/dL ALT 19 L (21-72) U/L Total Protein 4.6 L (6.3-8.2) g/dL Albumin 2.1 L (3.5-5.0) g/dL Crossmatch Assessment and Plan Plan: -Left upper lobe resection with lymph node dissection and rib resection: Pain management and due to prophylaxis per primary service leukocytosis secondary to surgery and reactive in nature #4 COPD without any acute exacerbation -Benign prostatic hypertrophy -
[2018-11-20] MEDS ORDERED: OXYMETAZOLINE 0.05% NASL SPRAY 1 SPRAY BOTTLE NASAL STA (16:55)
[2018-11-20] MEDS: DEXTROSE 5%-0.45% NACL 1,000 ML IV SCH (18:31)
[2018-11-20] MEDS: DOXAZOSIN 4 MG TAB PO SCH (20:48)
[2018-11-21 05:37] LABS: HCT 29.6 % (39.0-53.0); HGB 9.4 gm/dL (13.0-17.5); Hypochromasia Slight; MCH 29.7 pg (25.0-35.0); MCV 92.9 fL (80.0-100.0); Mean Platelet Volume 6.8; Platelet Count 283 k/uL (150-450); RBC 3.18 m/uL (4.30-5.90); RDW 14.9 % (11.5-15.5); WBC 15.9 k/uL (3.8-10.6)
[2018-11-21 06:04] LABS: Anion Gap 3 mmol/L; Blood Urea Nitrogen 18 mg/dL (9-20); Calcium 8.2 mg/dL (8.4-10.2); Carbon Dioxide 25 mmol/L (22-30); Chloride 106 mmol/L (98-107); Glucose 113 mg/dL (74-99); Potassium 4.2 mmol/L (3.5-5.1); Sodium 134 mmol/L (137-145)
--- NOTE | 2018-11-21 06:31 | XR ---
EXAMINATION TYPE: XR chest 1V portable DATE OF EXAM: 11/21/2018 HISTORY: Postoperative left lobectomy. REFERENCE: Previous study dated 11/20/2018. FINDINGS: 2 left pleural drains are in place. There is volume loss on the left and shift of the media stinal structures towards the left. Heart is not enlarged. The right lung is clear. There is some left basilar airspace disease. This may represent atelectasis or early consolidation. No definite pleural fluid is seen. IMPRESSION: CONTINUING POSTOPERATIVE CHANGE.
[2018-11-21] MEDS: IPRATROPIUM-ALBUTEROL 3 ML NEB IH SCH (07:28)
[2018-11-21] MEDS: NICOTINE 21MG/24HR PATCH TRANSDERM SCH (08:49)
[2018-11-21] MEDS: HEPARIN SODIUM,PORCINE 5,000 UNIT/ML 1 ML VIAL SQ SCH ×2 (08:49→18:43)
--- NOTE | 2018-11-21 09:08 | P.PN ---
Subjective Progress Note Date: 11/21/18 Principal diagnosis: Left apical lung carcinoma, invasion of chest wall, poorly differentiated non- small cell lung cancer diagnosed by navigational bronchoscopy on 10/08/2018, history of COPD, benign prostatic hypertrophy, chronic tobacco abuse, history of bladder cancer and prostate cancer and history of osteoarthritis. POD #2 left thoracoscopic with attempted robotic left upper lobectomy converted to open with en bloc chest wall resection of the apical tumor including ribs 2 and 3. The patient is laying in bed in the intensive care unit in no acute distress. He is complaining of left shoulder plain, denies any shortness of breath. Hemodynamically stable and is on no inotropic or pressure support. Epidural catheter remains in place at 2 mL per hour. Oxygen saturation are 95% on 2 L nasal cannula. Achieving 1000 mL on his incentive spirometry. Left anterior an d posterior chest tubes remain in place to low continuous wall suction -20 cm H2O. no airleak present. Draining thin serosanguineous drainage. He reports he was sitting up to the bedside chair yesterday for all of his meals and that physical therapy was working with him at his bedside. The patient is complaining of episodes of his legs shaking. Objective - Vital Signs Vital signs: Vital Signs Temp 97.8 F 11/21/18 04:00 Pulse 88 11/21/18 07:41 Resp 15 11/21/18 07:00 BP 132/78 11/21/18 07:00 Pulse Ox 94 L 11/21/18 07:00 Intake & Output 11/20/18 11/21/18 11/21/18 18:59 06:59 18:59 Intake Total 1220 530 Output Total 775 780 Balance 445 -250 Weight 62.3 kg Intake: IV 480 530 Dextrose 5%-0.45% NaCl 1, 480 530 000 ml @ 40 mls/hr IV . Q24H [facility] Rx#:[id number] Oral 740 Output: Chest Tube Drainage 140 left chest anterior 50 left chest posterior 90 Drainage 350 55 Left Anterior Chest 210 35 Left Chest posterior A 140 20 Urine 425 585 Other: Voiding Method Indwelling Catheter Indwelling Catheter - Constitutional General appearance: Present: cooperative, no acute distress, thin - Respiratory Details: Lung sounds are essentially diminished throughout, few scattered crackles to his bilateral bases. Respirations are symmetrical and nonlabored. Oxygen saturation are 95% on 2 L nasal cannula. Achieving 1000 mL on his incentive spirometry. Anterior and posterior left pleural chest tubes in place to low continuous wall suction at -20 cm H2O. No air leak is present. Draining thin serosanguineous drainage. Anterior chest tube with 50 mL output in the last 8 hours, 300 mL output in the last 24 hours. Posterior chest tube with 90 mL output in the last 8 hours, 180 mL output in the last 24 hours. - Cardiovascular Details: Regular rhythm and rate. S1 and S2 present, negative for S3, gallop or murmur. Bedside telemetry showing normal sinus rhythm heart rate 86. No edema present. - Gastrointestinal Gastrointestinal Comment(s): Abdomen is soft, nontender nondistended. Active bowel sounds all 4 abdominal quadrants. Tolerating oral intake. No guarding or rigidity. No organomegaly. - Genitourinary Genitourinary Comment(s): Quintero catheter for accurate I&O. Draining clear yellow urine. 470 mL output in the last 8 hours. - Integumentary Integumentary Comment(s): Skin is warm and dry. No clubbing or cyanosis is present. Left thoracotomy and thoracoscopic incisions clean, dry and intact. No drainage or redness present. Anterior and posterior left chest tube sites with dressings clean, dry and intact. Epidural site is clean, dry and intact. No drainage or redness present. - Neurologic Neurologic Comment(s): Restless legs. Neurologic: Present: CNII-XII intact - Musculoskeletal Musculoskeletal: Present: gait normal, generalized weakness, strength equal bilaterally - Psychiatric Psychiatric: Present: A&O x's 3, appropriate affect, intact judgment & insight - Allied health notes Allied health notes reviewed: nursing - Labs CBC & Chem 7: 11/21/18 05:11 11/21/18 05:11 Labs: Abnormal Lab Results - Last 24 Hours (Table) 11/10/18 11/21/18 11/21/18 Range/Units 12:15 05:11 05:11 WBC 15.9 H (3.8-10.6) k/uL RBC 3.18 L (4.30-5.90) m/uL Hgb 9.4 L (13.0-17.5) gm/dL Hct 29.6 L (39.0-53.0) % Sodium 134 L (137-145) mmol/L Creatinine 0.63 L (0.66-1.25) mg/dL Glucose 113 H (74-99) mg/dL Calcium 8.2 L (8.4-10.2) mg/dL Crossmatch See Detail - Imaging and Cardiology Chest x-ray: report reviewed, image reviewed Assessment and Plan Assessment: 1. Left apical lung carcinoma, and patient left chest wall, status post left upper lobectomy with en bloc chest wall resection of apical tumor including ribs 2 and 3 2. History of poorly differentiated non-small cell lung cancer diagnosed with navigational bronchoscopy 10/08/2017 3. Chronic obstructive pulmonary disease 4. History of bladder cancer 5. History of prostate cancer 6. Chronic tobacco dependence 7. History of musculoskeletal injury involving his left shoulder Plan: 1. Place left anterior posterior chest tubes to water seal. 2. Pathology results are pending. 3. Epidural management per anesthesia. 4. Encourage use of his incentive spirometry every hour while awake. 5. Wean oxygen as tolerated, bronchodilators managed by pulmonary medicine. 6. Physical and occupational therapy following. 7. Discussed the importance of smoking cessation. 8. Pain management per when necessary orders. 9. Out of bed for all meals. Increase activity as tolerated. 10. Monitor daily labs and chest x-rays. 11. Medical management per primary care service. 12. More recommendations to follow based on patient's clinical course. Time with Patient: Greater than 30
--- NOTE | 2018-11-21 10:18 | PN ---
PROGRESS NOTE DATE OF SERVICE: November 21, 2018 83-year-old gentleman seen in consultation yesterday. I did a navigational bronchoscopy on him on October 08. At that time, he was discovered to have poorly differentiated non-small cell lung cancer. I sent him to Dr. Sexton for consideration of lobectomy. He had a presurgical PET scan which did not show any distant disease. Unfortunately, a robotically assisted left upper lobectomy was attempted but because the tumor had invaded the chest wall and wrapped it around ribs #2 and 3 on the left, the patient had a formal thoracotomy. He did have a chest wall resection as well as rib resection of rib #2 and 3 and lymph node dissection. Lymph nodes L7, 10, 11, 6 and 5 were all evaluated. The patient did well postoperatively and was extubated in the recovery area. Currently, he is on nasal O2 at 4 L. He is getting an IV of dextrose 0.45 at 40. Epidural still in place. He was seen by Dr. Landin of cardiothoracic surgery today. Chest x-ray is stable. Lung volumes on the left are reduced. Two chest tubes are noted. There is some minimal subcutaneous emphysema noted. PHYSICAL EXAMINATION: VITAL SIGNS: Current vital signs are reviewed. Temperature 98. Heart rate 93, respiratory rate 24, blood pressure 151/65. Mean 93, and 3 L and 4 L saturations are mid 90s. GENERAL: Appears in no acute distress. HEENT examination is grossly unremarkable. Nasal O2 noted. NECK: Supple. Full range of motion. No adenopathy. CARDIOVASCULAR examination reveals regular rhythm rate. Heart rate 93. S1, S2 normal. LUNGS: Diminished breath sounds on the left. A few scattered rhonchi noted. No wheezes or crackles. ABDOMEN: Soft. Bowel sounds are heard. EXTREMITIES are intact. No cyanosis, clubbing, or edema. SKIN without rash. NEUROLOGIC examination is brief but nonfocal. LABS: Reviewed. White count 15.9, hemoglobin 9.4, hematocrit 29.6, platelet count 283,000. Sodium 134, potassium 4.2. Chloride 106 CO2 is 25, anion gap is 3. BUN and creatinine were 18 and 0.63. Chest x-ray as mentioned above is reviewed. Medications are reviewed. Everything seems to be appropriate there. Microbiologic studies are negative. ASSESSMENT: 1. Postoperative day number two status post left thoracotomy with left upper lobe resection, lymph node dissection and resection of ribs 2 and 3 on the left. 2. History of chronic obstructive pulmonary disease. 3. Poorly differentiated non-small cell lung cancer diagnosed by navigational bronchoscopy on October 08. 4. Benign prostatic hypertrophy. 5. Chronic obstructive pulmonary disease. 6. Previous history of heavy tobacco use. PLAN: The patient is doing better. He is currently on nasal O2 and a basic IV. I asked him to take deep breaths, cough, clear secretions and hourly use of incentive spirometer. Chest x-ray looks relatively stable. He was seen by Cardiothoracic this morning. We will continue to follow closely. Prognosis is guarded given his intraoperative findings. MMODL / IJN: [id number] /
[2018-11-21] MEDS ORDERED: IPRATROPIUM-ALBUTEROL 3 ML NEB INHALATION PRN (16:23)
[2018-11-21] MEDS: DEXTROSE 5%-0.45% NACL 1,000 ML IV SCH (18:43)
--- NOTE | 2018-11-21 19:08 | P.PN ---
Progress Note - Text 11/21 7077 83-year-old status post thoracotomy with the thoracic epidural for postop pain control. The epidural solution is running at 2 mL an hour with a VAS of 0.
[2018-11-21] MEDS: IPRATROPIUM-ALBUTEROL 3 ML NEB INHALATION SCH (20:33)
--- NOTE | 2018-11-21 20:37 | US ---
EXAMINATION TYPE: US venous doppler duplex UE LT DATE OF EXAM: 11/21/2018 COMPARISON: NONE CLINICAL HISTORY: left upper arm swelling. Left forearm and hand swelling at former iV site. SIDE PERFORMED: left Grayscale, color doppler, spectral doppler imaging performed of the deep veins of the upper extremity . There is normal flow, compressibility and vascular waveforms. Left Arm: Negative for DVT, but is positive for Superficial Vein Thrombosis in distal Cephalic Vein a nd noted just to brachial fossa. Edema channels are noted in left forearm. Tech findings reported to patient's RNAnna Marie, at exam's end. IMPRESSION: 1. No sonographic evidence of deep venous arthrosis within the left upper extremity. 2. Positive exam for superficial venous thrombosis in the distal cephalic vein. Tech findings reporte d to patient's RNAnna Marie, at exam's end.
[2018-11-21] MEDS: DOXAZOSIN 4 MG TAB PO SCH (20:53)
[2018-11-21 21:19] LABS: Amorphous Sediment,Urine Rare /hpf; Appearance,Urine Clear (Clear); Bacteria,Urine Rare /hpf; Bilirubin,Urine Negative (Negative); Blood,Urine Trace (Negative); Color,Urine Yellow; Glucose,Urine (UA) Negative (Negative); Hyaline Casts,Urine 6 /lpf (0-2); Ketones,Urine Negative (Negative); Leukocyte Esterase,Urine Moderate (Negative); Mucus,Urine Rare /hpf; Nitrite,Urine Negative (Negative); Protein,Urine Trace (Negative); RBC,Urine 12 /hpf (0-5); Specific Gravity,Urine 1.027 (1.001-1.035); Squamous Epithelial Cell,Urine 1 /hpf (0-4); Urobilinogen,Urine <2.0 mg/dL (<2.0)
--- NOTE | 2018-11-21 22:25 | P.PN ---
Subjective Progress Note Date: 11/21/18 Principal diagnosis: Left upper lobe resection -postop day 2 Mr. Ferraro is an 82-year-old male who's been diagnosed with poorly differentiated non-small cell lung cancer admitted for left upper lobe lobectomy. He is post op day 2. Patient had chest wall resection along with second and third rib and lymph node dissection. Patient has a P due to in place for pain management. A nd he has [address] Today the patient is lying comfortably in the bed, and the ICU. He does not appear to be in acute distress. He states his difficulty in breathing is at baseline. He has mild swelling of his left upper extremity for the past couple of days. Patient denies having any chest pain or palpitations. He denies having any lower extremity swelling. No orthopnea. He denies having any fevers chills or rigors. Active Medications Albuterol/Ipratropium (Duoneb 0.5 Mg-3 Mg/3 Ml Soln) 3 ml INHALATION RT-QID BAUTISTA Albuterol/Ipratropium (Duoneb 0.5 Mg-3 Mg/3 Ml Soln) 3 ml INHALATION RT-Q1H PRN PRN Reason: Shortness Of Breath Or Wheezing Bisacodyl (Dulcolax) 10 mg RECTAL DAILY PRN PRN Reason: Constipation Diphenhydramine HCl (Benadryl) 25 mg IVP Q6HR PRN PRN Reason: Itching Doxazosin Mesylate (Cardura) 8 mg PO HS [facility] Last Admin: 11/20/18 20:48 Dose: 8 mg Documented by: Heparin Sodium (Porcine) (Heparin) 5,000 unit SQ Q8HR [facility] Last Admin: 11/21/18 18:43 Dose: 5,000 unit Documented by: Ropivacaine 250 mg/Hydromorphone HCl 5 mg/ Sodium Chloride 250 mls @ 0 mls/hr EPIDURAL .Q0M PRN; Protocol PRN Reason: Pain Control Last Infusion: 11/19/18 17:26 Dose: 2 mls/hr Documented by: Dextrose/Sodium Chloride (Dextrose 5%-1/2ns Iv Soln) 1,000 mls @ 40 mls/hr IV .Q24H [facility] Last Admin: 11/21/18 18:43 Dose: 40 mls/hr Documented by: Metoclopramide HCl (Reglan) 5 mg IVP Q4HR PRN PRN Reason: Nausea And Vomiting Nalbuphine HCl (Nubain) 2.5 mg IV Q4HR PRN PRN Reason: Itching Naloxone HCl (Narcan) 0.2 mg IV Q2M PRN PRN Reason: Opioid Reversal Nicotine (Habitrol 21mg/24hr Patch) 1 patch TRANSDERM DAILY [facility] Last Admin: 11/21/18 08:49 Dose: 1 patch Documented by: Ondansetron HCl (Zofran) 4 mg IVP Q8HR PRN PRN Reason: Nausea And Vomiting Objective - Vital Signs Vital signs: Vital Signs Temp 99.1 F 11/21/18 16:00 Pulse 99 11/21/18 19:00 Resp 23 11/21/18 19:00 BP 121/98 11/21/18 19:00 Pulse Ox 91 L 11/21/18 19:00 Intake & Output 11/21/18 11/21/18 11/22/18 06:59 18:59 06:59 Intake Total 530 440 40 Output Total 780 400 42 Balance -250 40 -2 Weight 62.3 kg Intake: IV 530 440 40 Dextrose 5%-0.45% NaCl 1, 530 440 40 000 ml @ 40 mls/hr IV . Q24H [facility] Rx#:[id number] Output: Chest Tube Drainage 140 left chest anterior 50 left chest posterior 90 Drainage 55 10 Left Anterior Chest 35 0 Left Chest posterior A 20 10 Urine 585 390 42 Other: Voiding Method Indwelling Catheter Indwelling Catheter - Exam GENERAL: The patient is alert and oriented x3, not in any acute distress. Chronically ill appearing HEENT: Mild pallor. No icterus CARDIOVASCULAR: S1 and S2 heard. Tachycardia. Epidural in place. PULMONARY: chest tubes in place. Coarse breath sounds bilaterally. ABDOMEN: Soft, nontender, nondistended, normoactive bowel sounds. No palpable organomegaly. Quintero's catheter in place. MUSCULOSKELETAL: No joint swelling or deformity. EXTREMITIES: Pitting edema of the left upper extremity from elbow to the hand NEUROLOGICAL: Gross neurological examination did not reveal any focal deficits. SKIN: Skin is fragile - Labs CBC & Chem 7: 11/21/18 05:11 11/21/18 05:11 Labs: Abnormal Lab Results - Last 24 Hours (Table) 11/10/18 11/21/1811/21/19 Range/Units 12:15 05:11 05:11 WBC 15.9 H (3.8-10.6) k/uL RBC 3.18 L (4.30-5.90) m/uL Hgb 9.4 L (13.0-17.5) gm/dL Hct 29.6 L (39.0-53.0) % Sodium 134 L (137-145) mmol/L Creatinine 0.63 L (0.66-1.25) mg/dL Glucose 113 H (74-99) mg/dL Calcium 8.2 L (8.4-10.2) mg/dL Crossmatch See Detail Assessment and Plan Assessment: ASSESSMENT Status post left upper lobe thoracotomy and resection of second and third ribs - postop day 2 Poorly differentiated non-small cell lung carcinoma Chronic obstructive pulmonary disease Heavy nicotine dependence Leukocytosis Left upper extremity swelling PLAN: Patient has slightly elevated white count, along with tachycardia and tachypnea and there is left upper extremity swelling. Will order left upper ex tremity Doppler to rule out DVT. Will get blood cultures and urine cultures. Patient encouraged to use incentive spirometry. Continue with the current medication regimen. Overall prognosis is guarded. Further recommendations to follow depending on the progress of the patient.
[2018-11-22] MEDS: HEPARIN SODIUM,PORCINE 5,000 UNIT/ML 1 ML VIAL SQ SCH ×3 (03:00→18:04)
--- NOTE | 2018-11-22 03:51 | XR ---
EXAM: XR Chest, 1 View CLINICAL HISTORY: SOB TECHNIQUE: Frontal view of the chest. COMPARISON: November 21, 2018. FINDINGS: Status post left lobectomy. Again noted are 2 left-sided pleural drains with distal tips projected over the left lung apex. There is interval worsening of left mid to lower lung airspace disease and left effusion. Volume loss in the left hemithorax and mediastinal shift towards the left again noted. Hyperinflated right lung, similar to prior. Remainder stable. IMPRESSION: Worsening left mid to lower lung infiltrates/atelectasis versus aspiration and left effusion. Status post left lobectomy. Stable left-sided pleural drains. Remainder stable.
[2018-11-22 04:55] LABS: HCT 33.2 % (39.0-53.0); HGB 9.9 gm/dL (13.0-17.5); Hypochromasia Slight; MCH 28.2 pg (25.0-35.0); MCHC 29.9 g/dL (31.0-37.0); MCV 94.3 fL (80.0-100.0); Mean Platelet Volume 7.7; Platelet Count 300 k/uL (150-450); RBC 3.52 m/uL (4.30-5.90); RDW 14.8 % (11.5-15.5); WBC 14.3 k/uL (3.8-10.6)
[2018-11-22 05:31] LABS: ALT 29 U/L (21-72); AST 54 U/L (17-59); Albumin 2.2 g/dL (3.5-5.0); Alkaline Phosphatase 79 U/L (38-126); Anion Gap 6 mmol/L; Blood Urea Nitrogen 17 mg/dL (9-20); Calcium 8.2 mg/dL (8.4-10.2); Carbon Dioxide 22 mmol/L (22-30); Chloride 104 mmol/L (98-107); Glucose 109 mg/dL (74-99); Potassium 4.4 mmol/L (3.5-5.1); Sodium 132 mmol/L (137-145); Total Bilirubin 0.6 mg/dL (0.2-1.3); Total Protein 4.8 g/dL (6.3-8.2)
[2018-11-22] MEDS: IPRATROPIUM-ALBUTEROL 3 ML NEB INHALATION SCH ×4 (07:05→19:29)
[2018-11-22] MEDS: guaiFENesin 600 MG TABLET.ER PO SCH ×2 (08:58→22:24)
[2018-11-22] MEDS: NICOTINE 21MG/24HR PATCH TRANSDERM SCH (08:58)
[2018-11-22] MEDS ORDERED: FUROSEMIDE 10 MG/ML 2 ML VIAL IV STA (09:25)
--- NOTE | 2018-11-22 09:27 | P.PN ---
Subjective Progress Note Date: 11/22/18 Principal diagnosis: Left apical lung carcinoma, invasion of chest wall, poorly differentiated non- small cell lung cancer diagnosed by navigational bronchoscopy on 10/08/2018, history of COPD, benign prostatic hypertrophy, chronic tobacco abuse, history of bladder cancer and prostate cancer and history of osteoarthritis. POD #3 left thoracoscopic with attempted robotic left upper lobectomy converted to open with en bloc chest wall resection of the apical tumor including ribs 2 and 3. The patient is laying in bed in the intensive care unit in no acute distress. He currently complaining of surgical type pain 2 out of 10 on the pain scale 2 his left chest tube insertion sites. Denies any complaints of shortness of breath, although he is on 15 L high flow oxygen with oxygen saturations of 90%. He reports that he had an episode of shortness of breath last evening. His T- max temperature the last 24 hours has been 99.2F. He continues to work diligently on his incentive spirometry and is achieving 1000 mL. WBC count this morning is 14.3. Anterior and posterior left pleural chest tubes remain in place to water seal. No air leak is present. Draining thin serosanguineous drainage. Chest x-ray this morning is demonstrating some atelectasis to his left lower lobe. He is complaining of a loose nonproductive cough. There is some swelling to his left arm with some generalized weakness, an ultrasound of the left arm was completed yesterday which showed no evidence of deep vein thrombosis within the left upper extremity but did show a superficial venous thr ombosis to the distal cephalic vein. The patient's leg tremors seem to be improved today. Objective - Vital Signs Vital signs: Vital Signs Temp 99.2 F 11/22/18 04:00 Pulse 100 11/22/18 07:20 Resp 12 11/22/18 07:00 BP 120/58 11/22/18 07:00 Pulse Ox 90 L 11/22/18 07:07 Intake & Output 11/21/18 11/22/18 11/22/18 18:59 06:59 18:59 Intake Total 440 520 Output Total 400 992 Balance 40 -472 Weight 65.2 kg Intake: IV 440 520 Dextrose 5%-0.45% NaCl 1, 440 520 000 ml @ 40 mls/hr IV . Q24H [facility] Rx#:[id number] Output: Chest Tube Drainage 250 left chest anterior 190 left chest posterior 60 Drainage 10 Left Anterior Chest 0 Left Chest posterior A 10 Urine 390 742 Other: Voiding Method Indwelling Catheter Indwelling Catheter - Constitutional General appearance: Present: cooperative, no acute distress, thin - Respiratory Details: Lung sounds essentially clear to his bilateral upper lobes, diminished to his left lower lobe. Respirations are symmetrical and nonlabored. Oxygen saturation are 90% on 15 L high flow oxygen. Achieving 1000 mL on his incentive spirometry. Anterior and posterior left pleural chest tubes remain in place to water seal. No air leak is present. Draining thin serosanguineous drainage. Anterior chest tube with 50 mL output in the last 24 hours. Posterior chest tube with 40 mL output in the last 8 hours, 200 mL output in the last 24 hours. - Cardiovascular Details: Regular rhythm and tachycardic rate. S1 and S2 present, negative for S3, gallop or murmur. Bedside telemetry showing sinus tachycardia heart rate 105. Left upper extremity edema +2. Knee-high ELLI hose and sequential compression devices in place to his bilateral lower extremities. - Gastrointestinal Gastrointestinal Comment(s): Abdomen is soft, nontender and nondistended. Active bowel sounds all 4 abdominal quadrants. No guarding or rigidity. No organomegaly. Tolerating oral intake. - Genitourinary Genitourinary Comment(s): Quintero catheter for accurate I&O, patient epidural remains in place. Draining clear sandeep urine. 525 mL output in the last 8 hours. - Integumentary Integumentary Comment(s): Skin is warm and dry. No clubbing or cyanosis present. Weeping left upper extremity edema +2. Left thoracotomy and thoracoscopic incisions clean, dry and approximated. No drainage or redness present. Epidural site is clean, dry and intact. No drainage or redness is present. - Neurologic Neurologic Comment(s): Epidural at 2 mL per hour. Neurologic: Present: CNII-XII intact - Musculoskeletal Musculoskeletal Comment(s): Left upper extremity weakness. Musculoskeletal: Present: gait normal, generalized weakness, strength equal bilaterally - Psychiatric Psychiatric: Present: A&O x's 3, appropriate affect, intact judgment & insight - Allied health notes Allied health notes reviewed: nursing - Labs CBC & Chem 7: 11/22/18 04:20 11/22/18 04:20 Labs: Abnormal Lab Results - Last 24 Hours (Table) 11/21/18 11/22/18 11/22/18 Range/Units 20:46 04:20 04:20 WBC 14.3 H (3.8-10.6) k/uL RBC 3.52 L (4.30-5.90) m/uL Hgb 9.9 L (13.0-17.5) gm/dL Hct 33.2 L (39.0-53.0) % MCHC 29.9 L (31.0-37.0) g/dL Sodium 132 L (137-145) mmol/L Creatinine 0.62 L (0.66-1.25) mg/dL Glucose 109 H (74-99) mg/dL Calcium 8.2 L (8.4-10.2) mg/dL Total Protein 4.8 L (6.3-8.2) g/dL Albumin 2.2 L (3.5-5.0) g/dL Urine Protein Trace H (Negative) Urine Blood Trace H (Negative) Ur Leukocyte Esterase Moderate H (Negative) Urine RBC 12 H (0-5) /hpf Urine WBC 23 H (0-5) /hpf Urine WBC Clumps Rare H (None) /hpf Amorphous Sediment Rare H (None) /hpf Urine Bacteria Rare H (None) /hpf Hyaline Casts 6 H (0-2) /lpf Urine Mucus Rare H (None) /hpf - Imaging and Cardiology Chest x-ray: report reviewed, image reviewed Assessment and Plan Assessment: 1. Left apical lung carcinoma, and patient left chest wall, status post left upper lobectomy with en bloc chest wall resection of apical tumor including ribs 2 and 3 2. History of poorly differentiated non-small cell lung cancer diagnosed with navigational bronchoscopy 10/08/2017 3. Chronic obstructive pulmonary disease 4. History of bladder cancer 5. History of prostate cancer 6. Chronic tobacco dependence 7. History of musculoskeletal injury involving his left shoulder Plan: 1. Remove left anterior chest tube, keep left posterior chest tube in place to water seal. Anticipate removal of the posterior chest tube tomorrow 11/23/2018. 2. Pathology results remain pending. 3. Epidural management per anesthesia. 4. Encourage use of his incentive spirometry every hour while awake. 5. Wean oxygen as tolerated, bronchodilators managed by pulmonary medicine. 6. Physical and occupational therapy following. Out of bed for all meals, encourage ambulation in the hallway. 7. Discussed the importance of smoking cessation. 8. Pain management per as necessary orders. 9. Monitor daily labs and chest x-rays. 10. Medical management per primary care service. 11. Initiate ultrasonic chest physiotherapy every 4 hours. 12. Lasix 20 mg IV 1 now. 13. More recommendations to follow based on patient's clinical course. Time with Patient: Greater than 30
--- NOTE | 2018-11-22 10:35 | PN ---
PROGRESS NOTE DATE OF SERVICE: November 22, 2018 This is an 83-year-old gentleman seen in consultation a couple days back. The patient had a navigational bronchoscopy done by myself on October 08. He was discovered on that procedure to have a poorly differentiated non-small cell lung cancer. I sent him to Dr. Sexton for consideration of lobectomy. He had a presurgical PET scan which did not show any distant disease. Unfortunately, a robotically assisted left upper lobectomy turned into a formal thoracotomy. Tumor had invaded the chest wall and wrapped-around ribs #2 and 3 on the left. Hence, the patient had a EN bloc resection and removal of the left upper lobe as well as rib resections at rib #2 and 3 and significant lymph node dissection. The patient did well postoperatively and was extubated in the recovery area. Currently still on nasal O2. Last night, though, became hypoxemic and saturations dropped. He was placed on high-flow oxygen at 15 L. Today's chest x-ray shows collapse and volume loss in the left lower lobe and probably a small left pleural effusion. Today we placed him on Mucinex twice a day, Perforomist and Pulmicort 1 mg twice a day. We are requesting that the respiratory therapy do some gentle chest physiotherapy to the left lower lobe. Alternatively, they could use a mechanical percussive but it has to be gentle. The patient does have leaks on both the anterior and posterior left-sided chest tube. No IV fluids running. The chest x-ray is reviewed. The patient is examined. Clinically, he looks well. He is sitting up in a chair. PHYSICAL EXAMINATION: Current vital signs are reviewed. Temperature 98.5 heart rate 100, respiratory rate 20, blood pressure 120/60, mean 80 and saturations are in the low 90s. Appears in no acute distress. HEENT examination is grossly unremarkable. Mucous membranes are moist. No oral lesions. Nasal O2 is noted. NECK: Supple. Full range of motion. No adenopathy or thyromegaly. Neck veins are flat. CARDIOVASCULAR examination reveals regular rhythm rate. Heart sounds are distant. S1, S2 normal. Heart rate right around 100. LUNGS: Diminished breath sounds at the left base. There is some rhonchi and crackles at the left base. Right lung is relatively clear. ABDOMEN: Soft. Bowel sounds are heard. EXTREMITIES are intact. No cyanosis, clubbing, or edema. SKIN without rash. NEUROLOGIC examination is brief but nonfocal. LAB DATA: Reviewed. White count 14.3, hemoglobin 9.9, hematocrit 33.2, platelet count 300,000, sodium 132, potassium, chloride and CO2 normal. Anion gap 6, BUN and creatinine were 17 and 0.62. Urine is noted. It looks like he may have a bladder infection. LE was moderate positive. There is 12 RBCs, 23 WBCs. There is rare bacteria. Chest x-ray shows volume loss left lower lobe and some infiltrate left lower lobe and small effusion left lower lobe. Microbiology is pending or negative. Medications are reviewed. The patient is on appropriate medications including updrafts, Pulmicort Perforomist, and Mucinex. Bactrim will be added for what appears to be a possible urinary tract infection. ASSESSMENT: 1. Postoperative day #3, status post left thoracotomy with left upper lobe resection, lymph node dissection, and resection of ribs 2 and 3 on the left. 2. History of chronic obstructive pulmonary disease. 3. Poorly differentiated non-small cell lung cancer, diagnosed by navigational bronchoscopy on October 08. 4. Benign prostatic hypertrophy. 5. Chronic obstructive pulmonary disease. 6. Previous history of heavy tobacco use. 7. Volume loss and partial lung collapse left lower lobe with small left pleural effusion. PLAN: The patient is encouraged to deep breathe, cough, clear secretions and use the incentive spirometer more aggressively. In addition, the patient will be given Bactrim DS for what appears to be a possible urinary tract infection. In addition, the patient will have either a gentle manual percussion or mechanical percussion to left lower lobe. No additional recommendations are made. We will continue to follow the patient closely. Prognosis is guarded. MMODL / IJN: [id number] /
[2018-11-22] MEDS: BUDESONIDE 1 MG/2 ML NEBU INHALATION SCH ×2 (10:44→19:29)
[2018-11-22] MEDS: FORMOTEROL FUMARATE 20 MCG/2 ML NEBU INHALATION SCH ×2 (10:44→19:29)
[2018-11-22] MEDS ORDERED: HYDROcodone/APAP 10-325MG 1 EACH TAB PO PRN (15:41)
[2018-11-22] MEDS ORDERED: MORPHINE SULFATE 2 MG/ML SYRINGE IVP PRN (15:41)
[2018-11-22] MEDS ORDERED: HYDROmorphone 1 MG/ML 1 ML SYRINGE IVP PRN (16:36)
--- NOTE | 2018-11-22 17:04 | P.PN ---
Subjective Progress Note Date: 11/22/18 Principal diagnosis: Left upper lobe resection -postop day 3 Mr. Ferraro is an 82-year-old male who's been diagnosed with poorly differentiated non-small cell lung cancer admitted for left upper lobe lobectomy. He is post op day 2. Patient had chest wall resection along with second and third rib and lymph node dissection. On 11/22/2018 - patient is sitting in a taper the bedside. His anterior chest tube has been removed this morning. He still has his epidural catheter in place for pain management. He has Quintero's catheter in place. Last night patient became hypoxemic and he was placed on high flow oxygen of 15 L. Chest x-ray showed collapse of the left lower lobe and small pleural effusion on the left side. He is still on high flow oxygen. Overall patient states that he is feeling weak. Denies having any chest pain or worsening difficulty in breathing. No palpitations. Patient has an incentive spirometry at the bedside and is able to achieve around 1200 mL. That is still swelling of his left upper extremity. Active Medications Albuterol/Ipratropium (Duoneb 0.5 Mg-3 Mg/3 Ml Soln) 3 ml INHALATION RT-QID [facility] Last Admin: 11/22/18 16:20 Dose: 3 ml Documented by: Albuterol/Ipratropium (Duoneb 0.5 Mg-3 Mg/3 Ml Soln) 3 ml INHALATION RT-Q1H PRN PRN Reason: Shortness Of Breath Or Wheezing Last Admin: 11/22/18 02:56 Dose: 3 ml Documented by: Bisacodyl (Dulcolax) 10 mg RECTAL DAILY PRN PRN Reason: Constipation Budesonide (Pulmicort) 1 mg INHALATION RT-BID [facility] Last Admin: 11/22/18 10:44 Dose: Not Given Documented by: Diphenhydramine HCl (Benadryl) 25 mg IVP Q6HR PRN PRN Reason: Itching Doxazosin Mesylate (Cardura) 8 mg PO HS [facility] Last Admin: 11/21/18 20:53 Dose: 8 mg Documented by: Formoterol Fumarate (Perforomist) 20 mcg INHALATION RT-BID [facility] Last Admin: 11/22/18 10:44 Dose: Not Given Documented by: Guaifenesin (Mucinex) 1,200 mg PO Q12HR [facility] Last Admin: 11/22/18 08:58 Dose: 1,200 mg Documented by: Heparin Sodium (Porcine) (Heparin) 5,000 unit SQ Q8HR [facility] Last Admin: 11/22/18 08:58 Dose: 5,000 unit Documented by: Hydromorphone HCl (Dilaudid) 2 mg IVP Q3H PRN PRN Reason: Pain Metoclopramide HCl (Reglan) 5 mg IVP Q4HR PRN PRN Reason: Nausea And Vomiting Naloxone HCl (Narcan) 0.2 mg IV Q2M PRN PRN Reason: Opioid Reversal Nicotine (Habitrol 21mg/24hr Patch) 1 patch TRANSDERM DAILY [facility] Last Admin: 11/22/18 08:58 Dose: 1 patch Documented by: Ondansetron HCl (Zofran) 4 mg IVP Q8HR PRN PRN Reason: Nausea And Vomiting Trimethoprim/Sulfamethoxazole (Bactrim Ds) 1 each PO BID [facility] Objective - Vital Signs Vital signs: Vital Signs Temp 98.2 F 11/22/18 12:00 Pulse 97 11/22/18 15:00 Resp 24 11/22/18 15:00 BP 100/51 11/22/18 15:00 Pulse Ox 94 L 11/22/18 15:00 Intake & Output 11/21/18 11/22/18 11/22/18 18:59 06:59 18:59 Intake Total 440 520 Output Total 400 992 605 Balance 40 -472 -605 Weight 65.2 kg Intake: IV 440 520 Dextrose 5%-0.45% NaCl 1, 440 520 000 ml @ 40 mls/hr IV . Q24H [facility] Rx#:[id number] Output: Chest Tube Drainage 250 60 left chest anterior 190 60 left chest posterior 60 0 Drainage 10 Left Anterior Chest 0 Left Chest posterior A 10 Urine 390 742 545 Other: Voiding Method Indwelling Catheter Indwelling Catheter Indwelling Catheter - Exam GENERAL: The patient is alert and oriented x3, not in any acute distress. Chronically ill appearing HEENT: Mild pallor. No icterus CARDIOVASCULAR: S1 and S2 heard. Tachycardia. Epidural in place. PULMONARY: Posterior chest tube in place. No breath sounds on the left side of the chest. Right-sided breath sounds are coarse . ABDOMEN: Soft, nontender, nondistended, normoactive bowel sounds. No palpable organomegaly. Quintero's catheter in place. MUSCULOSKELETAL: No joint swelling or deformity. EXTREMITIES: Pitting edema of the left upper extremity from elbow to the hand NEUROLOGICAL: Gross neurological examination did not reveal any focal deficits. SKIN: Skin is fragile - Labs CBC & Chem 7: 11/22/18 04:20 11/22/18 04:20 Labs: Abnormal Lab Results - Last 24 Hours (Table) 11/21/18 11/22/18 11/22/18 Range/Units 20:46 04:20 04:20 WBC 14.3 H (3.8-10.6) k/uL RBC 3.52 L (4.30-5.90) m/uL Hgb 9.9 L (13.0-17.5) gm/dL Hct 33.2 L (39.0-53.0) % MCHC 29.9 L (31.0-37.0) g/dL Sodium 132 L (137-145) mmol/L Creatinine 0.62 L (0.66-1.25) mg/dL Glucose 109 H (74-99) mg/dL Calcium 8.2 L (8.4-10.2) mg/dL Total Protein 4.8 L (6.3-8.2) g/dL Albumin 2.2 L (3.5-5.0) g/dL Urine Protein Trace H (Negative) Urine Blood Trace H (Negative) Ur Leukocyte Esterase Moderate H (Negative) Urine RBC 12 H (0-5) /hpf Urine WBC 23 H (0-5) /hpf Urine WBC Clumps Rare H (None) /hpf Amorphous Sediment Rare H (None) /hpf Urine Bacteria Rare H (None) /hpf Hyaline Casts 6 H (0-2) /lpf Urine Mucus Rare H (None) /hpf Microbiology - Last 24 Hours (Table) 11/21/18 20:46 Urine Culture - Preliminary Urine,Voided Assessment and Plan Assessment: ASSESSMENT Status post left upper lobe thoracotomy and resection of second and third ribs - postop day 3 Poorly differentiated non-small cell lung carcinoma Chronic obstructive pulmonary disease Heavy nicotine dependence Leukocytosis Left upper extremity swelling PLAN: Patient got the left upper extremity Doppler yesterday that was negative for any DVT. Blood cultures and sputum cultures pending. Patient encouraged to use incentive spirometry. Continue with the current medication regimen. Patient has been started on Bactrim for possible UTI. Patient's epidural will be discontinued. So he has been started on Dilaudid 2 mg every 3 hours when necessary for pain. Overall prognosis is guarded. Further recommendations to follow depending on the progress of the patient.
--- NOTE | 2018-11-22 20:38 | P.PN ---
Progress Note - Text 11/22 9583 83-year-old male status post thoracotomy by Dr. Sexton. Patient has an epidural catheter was solution running at 2 mL an hour, no complains of nausea vomiting VAS of 2. I asked the nurse to DC the epidural catheter.
[2018-11-22] MEDS: SULFAMETHOX-TMP 800-160MG 1 EACH TAB PO SCH (22:24)
[2018-11-22] MEDS: DOXAZOSIN 4 MG TAB PO SCH (22:24)
[2018-11-23] MEDS: HEPARIN SODIUM,PORCINE 5,000 UNIT/ML 1 ML VIAL SQ SCH ×4 (00:46→23:35)
[2018-11-23 04:36] LABS: Basophils % (A) 0 %; Eosinophils % (A) 0 %; HCT 29.4 % (39.0-53.0); HGB 9.2 gm/dL (13.0-17.5); Hypochromasia Slight; Lymphocytes # (A) 1.2 k/uL (1.0-4.8); Lymphocytes % (A) 9 %; MCH 29.7 pg (25.0-35.0); MCHC 31.4 g/dL (31.0-37.0); MCV 94.3 fL (80.0-100.0); Mean Platelet Volume 7.2; Monocytes % (A) 8 %; Neutrophils # (A) 11.1 k/uL (1.3-7.7); Neutrophils % (A) 81 %; Platelet Count 317 k/uL (150-450); RBC 3.12 m/uL (4.30-5.90); WBC 13.8 k/uL (3.8-10.6)
[2018-11-23 04:47] LABS: Anion Gap 3 mmol/L; Blood Urea Nitrogen 22 mg/dL (9-20); Calcium 8.6 mg/dL (8.4-10.2); Carbon Dioxide 30 mmol/L (22-30); Chloride 101 mmol/L (98-107); Glucose 104 mg/dL (74-99); Sodium 134 mmol/L (137-145)
[2018-11-23] MEDS ORDERED: ACETAMINOPHEN TAB 500 MG TAB PO PRN (06:31)
[2018-11-23] MEDS: KETOROLAC 30 MG/ML 1 ML VIAL IVP SCH ×4 (06:56→23:36)
[2018-11-23] MEDS: PANTOPRAZOLE 40 MG TABLET PO SCH (06:57)
--- NOTE | 2018-11-23 07:54 | XR ---
EXAMINATION TYPE: XR chest 1V portable DATE OF EXAM: 11/23/2018 COMPARISON: Prior chest x-ray 11/22/2018 HISTORY: Postop left upper lobectomy TECHNIQUE: Single frontal view of the chest is obtained. FINDINGS: The left-sided chest tube remains in place, there is volume loss in the left hemithorax, r ib resection change noted as on prior. No evident pneumothorax. One of the chest tubes has been remov ed. Heart is likely stable. Bibasilar increased density is present, the left hemidiaphragm is obscure d. Interstitium mildly increased. Subcutaneous emphysema is again seen. IMPRESSION: Lower lobe atelectasis, possible associated effusion, correlate to exclude pneumonia. Po stop changes. Interval chest tube removal.
[2018-11-23] MEDS: guaiFENesin 600 MG TABLET.ER PO SCH ×2 (07:55→21:32)
[2018-11-23] MEDS: NICOTINE 21MG/24HR PATCH TRANSDERM SCH (07:55)
[2018-11-23] MEDS: SULFAMETHOX-TMP 800-160MG 1 EACH TAB PO SCH ×2 (07:56→21:33)
[2018-11-23] MEDS: IPRATROPIUM-ALBUTEROL 3 ML NEB INHALATION SCH ×4 (08:08→20:45)
[2018-11-23] MEDS: BUDESONIDE 1 MG/2 ML NEBU INHALATION SCH ×2 (08:08→20:45)
[2018-11-23] MEDS: FORMOTEROL FUMARATE 20 MCG/2 ML NEBU INHALATION SCH ×2 (08:08→20:45)
[2018-11-23] MEDS: MAGNESIUM HYDROXIDE 2,400 MG/10 ML CUP PO PRN (08:40)
[2018-11-23] MEDS: traMADol 50 MG TAB PO PRN ×2 (08:40→14:52)
--- NOTE | 2018-11-23 09:32 | P.PN ---
Subjective Progress Note Date: 11/23/18 Principal diagnosis: left apical lung carcinoma, invasion of chest wall, poorly differentiated non- small cell lung cancer diagnosed by navigational bronchoscopy on 10/08/2018. Previous medical history of chronic tobacco abuse, COPD, bladder cancer, prostate cancer, BPH, osteoarthritis. POD #4 left thoracoscopic with attempted robotic left upper lobectomy converted to open with EN bloc chest wall resection of the apical tumor including ribs 2 and 3. The patient is currently sitting up in a recliner in no acute distress. Does appear slightly dyspneic with talking. Remains on 15 L high flow nasal cannula, states his breathing feels about the same. States his pain is controlled with current medication regimen, although he does not like how he feels with IV Dilaudid, epidural was discontinued yesterday by anesthesia. Anterior chest tube was pulled yesterday, posterior chest tube remains in place to waterseal with intermittent air leak with coughing. Does state that he feels dissatisfied with his progress as he feels he should be able to get higher on his incentive spirometry. Ambulated in the hallway yesterday with assist 2. Objective - Vital Signs Vital signs: Vital Signs Temp 98.4 F 11/23/18 04:00 Pulse 98 11/23/18 08:31 Resp 25 H 11/23/18 07:00 BP 120/61 11/23/18 07:00 Pulse Ox 91 L 11/23/18 08:08 Intake & Output 11/22/18 11/23/18 11/23/18 18:59 06:59 18:59 Intake Total 100 100 Output Total 1007 698 65 Balance -1007 -598 35 Weight 64.6 kg Intake: Oral 100 100 Output: Chest Tube Drainage 60 30 left chest anterior 60 left chest posterior 0 30 Urine 947 668 65 Other: Voiding Method Indwelling Catheter Indwelling Catheter - Constitutional General appearance: Present: cooperative, no acute distress - Respiratory Details: lungs sounds diminished on the left. Respirations even, slightly dyspneic with conversation. Currently on 15 L high flow nasal cannula with oxygen saturation 93% at rest, 89-91% with conversation. Only able to achieve 500-750 mL on his incentive spirometry this morning. Left posterior chest tube remains present to waterseal, 10 mL serous drainage overnight, 120 mL drainage in the last 24 hours, intermittent air leak present with coughing. - Cardiovascular Details: S1, S2 present. Regular rate and rhythm, sinus rhythm on telemetry. Palpable peripheral pulses bilaterally. No lower extremity edema present, slight edema to left upper extremity remains. No calf pain or tenderness noted. SCDs present. - Gastrointestinal Gastrointestinal Comment(s): abdomen soft, nontender, nondistended. Active bowel sounds present 4 quadrants. Tolerating diet. Negative bowel movement since surgery. - Genitourinary Genitourinary Comment(s): Quintero present draining clear, yellow urine. Output 50-100 mL/h overnight. - Integumentary Integumentary Comment(s): Skin is warm and dry with evidence of good perfusion. Left lateral chest wall incisions well approximated. - Neurologic Neurologic: Present: CNII-XII intact - Musculoskeletal Musculoskeletal: Present: generalized weakness - Psychiatric Psychiatric: Present: A&O x's 3, appropriate affect, intact judgment & insight - Allied health notes Allied health notes reviewed: nursing - Labs CBC & Chem 7: 11/23/18 04:04 11/23/18 04:04 Labs: Abnormal Lab Results - Last 24 Hours (Table) 11/23/18 11/23/18 Range/Units 04:04 04:04 WBC 13.8 H (3.8-10.6) k/uL RBC 3.12 L (4.30-5.90) m/uL Hgb 9.2 L (13.0-17.5) gm/dL Hct 29.4 L (39.0-53.0) % Neutrophils # 11.1 H (1.3-7.7) k/uL Sodium 134 L (137-145) mmol/L BUN 22 H (9-20) mg/dL Glucose 104 H (74-99) mg/dL Microbiology - Last 24 Hours (Table) 11/22/18 15:10 Gram Stain - Preliminary Sputum 11/21/18 19:21 Blood Culture - Preliminary Blood No Growth after 24 hours 11/21/18 19:29 Blood Culture - Preliminary Blood No Growth after 24 hours 11/21/18 20:46 Urine Culture - Preliminary Urine,Voided - Imaging and Cardiology Chest x-ray: report reviewed, image reviewed Assessment and Plan Assessment: 1. Left apical lung carcinoma, invasion of chest wall, poorly differentiated non-small cell lung cancer by navigational bronchoscopy, surgical pathology pending, status post left upper lobectomy with EN block chest wall resection of apical tumor including ribs 2 and 3 2. Chronic tobacco dependence 3. Chronic obstructive pulmonary disease 4. History of bladder cancer 5. History of prostate cancer 6. Osteoarthritis Plan: 1. Will continue left posterior chest tube to waterseal for another 24 hours. Will monitor for air leak resolution. 2. Await results of surgical pathology. 3. Wean O2 as tolerated. Encourage incentive spirometry use 10 times every hour while awake. 4. Bronchodilators per pulmonology. Continue chest physiotherapy. 5. Increase activity, ambulate in hallway. PT/OT following. 6. Discontinue Quintero catheter. Monitor for retention, may straight cath for greater than 300 mL. 7. Pain control with current medication regimen. Epidural discontinued yesterday by anesthesia, Tylenol/Toradol/Ultram PRN added. IV Dilaudid should be used for breakthrough pain only, likely will discontinue tomorrow. 8. Encourage continued smoking cessation. 9. Will monitor daily chest x-rays. 10. Medical management per primary care service. 11. More recommendations based on patient's progress. Time with Patient: Greater than 30
--- NOTE | 2018-11-23 13:01 | P.PN ---
Subjective Progress Note Date: 11/23/18 Principal diagnosis: Left upper lobe resection -postop day 4 Mr. Ferraro is an 82-year-old male who's been diagnosed with poorly differentiated non-small cell lung cancer admitted for left upper lobe lobectomy. He is post op day 2. Patient had chest wall resection along with second and third rib and lymph node dissection. On 11/23/2018 -patient is sitting up in a recliner by the bedside. He complains of mild difficulty in breathing. He continues to be on high flow oxygen at 15 L. Patient still has his posterior chest tube and Quintero's catheter in place. Patient's epidural has been discontinued yesterday and he is getting Dilaudid for his pain. Patient reports the pain medication does help, but at times he feels some spasms. He is being treated for a UTI with Bactrim. Overall patient seems to be improving. Patient still continues to have swelling of the left upper extremity, it is wrapped in Trino bandage. Doppler done for DVT has been negative. Overnight no active issues reported by nursing staff. Patient has incentive spirometry at the bedside, he is seeing that he is trying his best to get it to 1500 MLS as he is able to do it only upto 1250 mL. Active Medications Acetaminophen (Tylenol Tab) 1,000 mg PO Q6HR PRN PRN Reason: Fever and/ or Mild Pain Last Admin: 11/23/18 08:40 Dose: 1,000 mg Documented by: Albuterol/Ipratropium (Duoneb 0.5 Mg-3 Mg/3 Ml Soln) 3 ml INHALATION RT-QID [facility] Last Admin: 11/23/18 12:48 Dose: 3 ml Documented by: Albuterol/Ipratropium (Duoneb 0.5 Mg-3 Mg/3 Ml Soln) 3 ml INHALATION RT-Q1H PRN PRN Reason: Shortness Of Breath Or Wheezing Last Admin: 11/22/18 02:56 Dose: 3 ml Documented by: Bisacodyl (Dulcolax) 10 mg RECTAL DAILY PRN PRN Reason: Constipation Budesonide (Pulmicort) 1 mg INHALATION RT-BID [facility] Last Admin: 11/23/18 08:08 Dose: 1 mg Documented by: Diphenhydramine HCl (Benadryl) 25 mg IVP Q6HR PRN PRN Reason: Itching Doxazosin Mesylate (Cardura) 8 mg PO HS [facility] Last Admin: 11/22/18 22:24 Dose: 8 mg Documented by: Formoterol Fumarate (Perforomist) 20 mcg INHALATION RT-BID [facility] Last Admin: 11/23/18 08:08 Dose: 20 mcg Documented by: Guaifenesin (Mucinex) 1,200 mg PO Q12HR [facility] Last Admin: 11/23/18 07:55 Dose: 1,200 mg Documented by: Heparin Sodium (Porcine) (Heparin) 5,000 unit SQ Q8HR [facility] Last Admin: 11/23/18 07:55 Dose: 5,000 unit Documented by: Hydromorphone HCl (Dilaudid) 2 mg IVP Q3H PRN PRN Reason: Breakthrough Pain Last Admin: 11/22/18 18:04 Dose: 2 mg Documented by: Ketorolac Tromethamine (Toradol) 15 mg IVP Q6HR [facility] Stop: 11/28/18 06:46 Last Admin: 11/23/18 12:48 Dose: 15 mg Documented by: Magnesium Hydroxide (Milk Of Magnesia) 2,400 mg PO DAILY PRN PRN Reason: Constipation Last Admin: 11/23/18 08:40 Dose: 2,400 mg Documented by: Metoclopramide HCl (Reglan) 5 mg IVP Q4HR PRN PRN Reason: Nausea And Vomiting Naloxone HCl (Narcan) 0.2 mg IV Q2M PRN PRN Reason: Opioid Reversal Nicotine (Habitrol 21mg/24hr Patch) 1 patch TRANSDERM DAILY [facility] Last Admin: 11/23/18 07:55 Dose: 1 patch Documented by: Ondansetron HCl (Zofran) 4 mg IVP Q8HR PRN PRN Reason: Nausea And Vomiting Pantoprazole Sodium (Protonix) 40 mg PO AC-BRKFST [facility] Last Admin: 11/23/18 06:57 Dose: 40 mg Documented by: Senna/Docusate Sodium (Senokot-S) 2 each PO DAILY@2100 [facility] Tramadol HCl (Ultram) 50 mg PO QID PRN PRN Reason: Pain Last Admin: 11/23/18 08:40 Dose: 50 mg Documented by: Trimethoprim/Sulfamethoxazole (Bactrim Ds) 1 each PO BID [facility] Last Admin: 11/23/18 07:56 Dose: 1 each Documented by: Objective - Vital Signs Vital signs: Vital Signs Temp 97.8 F 11/23/18 08:00 Pulse 92 11/23/18 12:48 Resp 38 H 11/23/18 11:00 BP 113/47 11/23/18 11:00 Pulse Ox 95 11/23/18 11:00 Intake & Output 11/22/18 11/23/18 11/23/18 18:59 06:59 18:59 Intake Total 100 250 Output Total 1007 698 225 Balance -1007 -598 25 Weight 64.6 kg Intake: Oral 100 250 Output: Chest Tube Drainage 60 30 0 left chest anterior 60 left chest posterior 0 30 0 Urine 947 668 225 Other: Voiding Method Indwelling Catheter Indwelling Catheter Indwelling Catheter - Exam GENERAL: The patient is alert and oriented x3, not in any acute distress. Chronically ill appearing HEENT: Mild pallor. No icterus CARDIOVASCULAR: S1 and S2 heard. Tachycardia. PULMONARY: Posterior chest tube in place. No breath sounds on the left side of the chest. Right-sided breath sounds are coarse . ABDOMEN: Soft, nontender, nondistended, normoactive bowel sounds. No palpable organomegaly. Quintero's catheter in place. MUSCULOSKELETAL: No joint swelling or deformity. EXTREMITIES: Pitting edema of the left upper extremity from elbow to the hand. Bilateral pitting edema bilateral lower extremities up to the knee joints. NEUROLOGICAL: Gross neurological examination did not reveal any focal deficits. SKIN: Skin is fragile - Labs CBC & Chem 7: 11/23/18 04:04 11/23/18 04:04 Labs: Abnormal Lab Results - Last 24 Hours (Table) 11/23/18 11/23/18 Range/Units 04:04 04:04 WBC 13.8 H (3.8-10.6) k/uL RBC 3.12 L (4.30-5.90) m/uL Hgb 9.2 L (13.0-17.5) gm/dL Hct 29.4 L (39.0-53.0) % Neutrophils # 11.1 H (1.3-7.7) k/uL Sodium 134 L (137-145) mmol/L BUN 22 H (9-20) mg/dL Glucose 104 H (74-99) mg/dL Microbiology - Last 24 Hours (Table) 11/21/18 20:46 Urine Culture - Final Urine,Voided 11/22/18 15:10 Gram Stain - Preliminary Sputum 11/21/18 19:21 Blood Culture - Preliminary Blood No Growth after 24 hours 11/21/18 19:29 Blood Culture - Preliminary Blood No Growth after 24 hours Assessment and Plan Assessment: ASSESSMENT Status post left upper lobe thoracotomy and resection of second and third ribs - postop day 3 Poorly differentiated non-small cell lung carcinoma Chronic obstructive pulmonary disease Heavy nicotine dependence Leukocytosis Left upper extremity swelling PLAN: Patient got the left upper extremity Doppler that was negative for any DVT. Blood cultures and sputum cultures - no growth until now. Patient enc ouraged to use incentive spirometry and continue with breathing treatments. Continue with the current medication regimen. Patient has been started on Bactrim for possible UTI. Patient's epidural has be discontinued yesterday. His pain is under good control with IV Dilaudid. DVT prophylaxis with heparin .Overall prognosis is guarded. Further recommendations to follow depending on the progress of the patient. Treatment plan was discussed in detail with the patient's son at the bedside today.
--- NOTE | 2018-11-23 14:26 | P.PN ---
Subjective Progress Note Date: 11/23/18 This is a 83-year-old male patient with a large T4 lesion of the left upper lobe and the patient underwent a left thoracotomy and left upper lobectomy with resection of the chest wall along with apical tumor and resection of the second and third ribs. The patient is currently postop day #4. Chest tubes are in place. There is no evidence of any air leak. The patient became progressively more hypoxic and currently is on 15 L of oxygen nasal cannula. Chest x-ray from today shows a new pulmonary infiltrate on the right in addition to some left lower lobe pulmonary infiltration. No significant rest or secretions. He has a congested cough. Unable to bring up much sputum. The anterior chest tube was pulled yesterday and the posterior chest tube remains in place. I did not see any air leak however I was told that it is intermittently leaking. The patient is ambulating. He is tolerating his diet. He is hemodynamically stable. Final pathology is not out yet. The patient has also previous history of bladder cancer, prostate cancer, history of smoking and COPD and BPH. No altered ment ation. His communicating. No chest wall pain. Pain is under good control for now. No altered mentation. Objective - Vital Signs Vital signs: Vital Signs Temp 97.8 F 11/23/18 08:00 Pulse 92 11/23/18 13:04 Resp 12 11/23/18 13:00 BP 107/63 11/23/18 13:00 Pulse Ox 96 11/23/18 13:00 Intake & Output 11/22/18 11/23/18 11/23/18 18:59 06:59 18:59 Intake Total 100 600 Output Total 1007 698 360 Balance -1007 -598 240 Weight 64.6 kg Intake: Oral 100 600 Output: Chest Tube Drainage 60 30 0 left chest anterior 60 left chest posterior 0 30 0 Urine 947 668 360 Other: Voiding Method Indwelling Catheter Indwelling Catheter Bedside Commode Urinal - Exam - Constitutional General appearance: Present: cooperative, no acute distress - Respiratory Details: lungs sounds diminished on the left. Respirations even, slightly dyspneic with conversation. Currently on 15 L high flow nasal cannula with oxygen saturation 93% at rest, 89-91% with conversation. Only able to achieve 500-750 mL on his incentive spirometry this morning. Left posterior chest tube remains present to waterseal, 10 mL serous drainage overnight, 120 mL drainage in the last 24 hours, intermittent air leak present with coughing. - Cardiovascular Details: S1, S2 present. Regular rate and rhythm, sinus rhythm on telemetry. Palpable peripheral pulses bilaterally. No lower extremity edema present, slight edema to left upper extremity remains. No calf pain or tenderness noted. SCDs present. - Gastrointestinal Gastrointestinal Comment(s): abdomen soft, nontender, nondistended. Active bowel sounds present 4 quadrants. Tolerating diet. Negative bowel movement since surgery. - Genitourinary Genitourinary Comment(s): Quintero present draining clear, yellow urine. Output 50-100 mL/h overnight. - Integumentary Integumentary Comment(s): Skin is warm and dry with evidence of good perfusion. Left lateral chest wall incisions well approximated. - Neurologic Neurologic: Present: CNII-XII intact - Musculoskeletal Musculoskeletal: Present: generalized weakness - Psychiatric Psychiatric: Present: A&O x's 3, appropriate affect, intact judgment & insight - Labs CBC & Chem 7: 11/23/18 04:04 11/23/18 04:04 Labs: Abnormal Lab Results - Last 24 Hours (Table) 11/23/18 11/23/18 Range/Units 04:04 04:04 WBC 13.8 H (3.8-10.6) k/uL RBC 3.12 L (4.30-5.90) m/uL Hgb 9.2 L (13.0-17.5) gm/dL Hct 29.4 L (39.0-53.0) % Neutrophils # 11.1 H (1.3-7.7) k/uL Sodium 134 L (137-145) mmol/L BUN 22 H (9-20) mg/dL Glucose 104 H (74-99) mg/dL Microbiology - Last 24 Hours (Table) 11/21/18 20:46 Urine Culture - Final Urine,Voided 11/22/18 15:10 Gram Stain - Preliminary Sputum 11/21/18 19:21 Blood Culture - Preliminary Blood No Growth after 24 hours 11/21/18 19:29 Blood Culture - Preliminary Blood No Growth after 24 hours Assessment and Plan Plan: 1 left upper lobe T4 lesion with chest wall involvement. The patient underwent a left upper lobe resection and the patient will undergo a chest wall resection involving resection of the second and the third rib. Patient is postop day #4 2 acute hypoxic respiratory failure, expected outcome of surgery currently on 15 L of oxygen by nasal cannula. Rule out bilateral lower lobe pneumonia. 3 COPD 4 smoker 5 history of bladder cancer 6 history of prostate cancer 7 left-sided chest tube. Plan Keep the chest tube in place. Encourage use of incentive spirometer. Monitor the oxygenation. Monitor chest x-ray. I have considered the patient is developing lower lobe pneumonias. We'll going to monitor the progress and consider antibiotic addition of the patient develops worsening oxygenation and or further worsening in the bilateral pulmonary infiltrates. The patient is currently on Bactrim orally. Quintero catheter will be discontinued. We will ask increased level of activity. Wean down the FiO2 as possible. Encourage use of incentive spirometer. Keep the patient ICU for now. Awaiting final path.
--- NOTE | 2018-11-23 21:11 | XR ---
EXAMINATION TYPE: XR chest 1V portable DATE OF EXAM: 11/23/2018 COMPARISON: Today HISTORY: Hypoxemia TECHNIQUE: Single frontal view of the chest is obtained. FINDINGS: There is a left chest tube with the tip at the left upper lobe. There is extensive consoli dation and volume loss in the left hemithorax involving left lower lobe. There is shift of heart and mediastinum to the left side. Left second rib appears partly absent. There is left apical pneumothora x. IMPRESSION: There is left lower lobe consolidation and volume loss not significantly different. Volu me loss could relate to partial lung resection. There is partial clearing of infiltrate right lower lobe compared to exam this morning.
[2018-11-23] MEDS: SENNOSIDES-DOCUSATE SODIUM 1 EACH TAB PO SCH (21:32)
[2018-11-23] MEDS: DOXAZOSIN 4 MG TAB PO SCH (21:33)
[2018-11-24] MEDS ORDERED: SODIUM CHLORIDE 0.9% 500 ML 500 ML IV ONE (01:06)
[2018-11-24 05:48] LABS: Basophils % (A) 0 %; Eosinophils # (A) 0.2 k/uL (0-0.7); Eosinophils % (A) 1 %; HCT 30.8 % (39.0-53.0); HGB 9.7 gm/dL (13.0-17.5); Hypochromasia Slight; Lymphocytes # (A) 1.1 k/uL (1.0-4.8); Lymphocytes % (A) 8 %; MCH 29.8 pg (25.0-35.0); MCHC 31.5 g/dL (31.0-37.0); MCV 94.5 fL (80.0-100.0); Mean Platelet Volume 7.3; Monocytes # (A) 0.8 k/uL (0-1.0); Monocytes % (A) 6 %; Neutrophils # (A) 10.7 k/uL (1.3-7.7); Neutrophils % (A) 82 %; Platelet Count 324 k/uL (150-450); RBC 3.26 m/uL (4.30-5.90); RDW 14.9 % (11.5-15.5); WBC 13.1 k/uL (3.8-10.6)
[2018-11-24 05:55] LABS: Anion Gap 4 mmol/L; Blood Urea Nitrogen 31 mg/dL (9-20); Calcium 8.7 mg/dL (8.4-10.2); Carbon Dioxide 26 mmol/L (22-30); Chloride 104 mmol/L (98-107); Glucose 90 mg/dL (74-99); Potassium 4.3 mmol/L (3.5-5.1); Sodium 134 mmol/L (137-145)
[2018-11-24] MEDS: PANTOPRAZOLE 40 MG TABLET PO SCH (06:16)
[2018-11-24] MEDS: KETOROLAC 30 MG/ML 1 ML VIAL IVP SCH ×4 (06:16→23:32)
--- NOTE | 2018-11-24 07:35 | P.PN ---
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 Previous medical history of chronic tobacco abuse, COPD, bladder cancer, prostate cancer, BPH, osteoarthritis. POD #5 left thoracoscopic with attempted robotic left upper lobectomy converted to open with EN bloc chest wall resection of the apical tumor including ribs 2 and 3. The patient is currently sitting up in a recliner in no acute distress eating breakfast. Does appear slightly dyspneic with talking. Remains on 15 L high flow nasal cannula, states his breathing feels about the same. States his pain is controlled with current medication regimen. Posterior chest tube remains in place to waterseal with no air leak. Ambulating in the hallway with assist 2. No new complaints. Objective - Vital Signs Vital signs: Vital Signs Temp 97.5 F L 11/24/18 04:00 Pulse 77 11/24/18 05:00 Resp 22 11/24/18 05:00 BP 133/56 11/24/18 05:00 Pulse Ox 90 L 11/24/18 05:00 Intake & Output 11/23/18 11/24/18 11/24/18 18:59 06:59 18:59 Intake Total 660 740 Output Total 360 90 Balance 300 650 Weight 67 kg Intake: IV 500 Sodium Chloride 0.9% 500 500 ml 500 ml @ 999 mls/hr IV .Q31M ONE Rx#:[id number] Oral 660 240 Output: Chest Tube Drainage 0 0 left chest posterior 0 0 Drainage 90 Left Chest posterior A 90 Urine 360 0 Other: Voiding Method Bedside Commode Bedside Commode Urinal Urinal - Constitutional General appearance: Present: cooperative, no acute distress - Respiratory Details: Lungs sounds diminished on the left. Respirations even, slightly dyspneic with conversation. Currently on 15 L high flow nasal cannula with oxygen saturation 92%. Only able to achieve 500-750 mL on his incentive spirometry this morning. Left posterior chest tube remains present to waterseal, no drainage overnight, 190 mL serous drainage in the last 24 hours, no air leak present. - Cardiovascular Details: S1, S2 present. Regular rate and rhythm, sinus rhythm on telemetry. Palpable peripheral pulses bilaterally. No lower extremity edema present, slight edema to left upper extremity remains. No calf pain or tenderness noted. SCDs present. - Gastrointestinal Gastrointestinal Comment(s): Abdomen soft, nontender, nondistended. Active bowel sounds present 4 quadrants. Tolerating diet. Positive flatus, negative bowel movement since surgery. - Genitourinary Genitourinary Comment(s): Quintero discontinued yesterday, patient has not voided, he has been bladder scanned twice with very minimal residual. - Integumentary Integumentary Comment(s): Skin is warm and dry with evidence of good perfusion. Left lateral chest wall incisions well approximated. - Neurologic Neurologic: Present: CNII-XII intact - Musculoskeletal Musculoskeletal: Present: gait normal, strength equal bilaterally - Psychiatric Psychiatric: Present: A&O x's 3, appropriate affect, intact judgment & insight - Allied health notes Allied health notes reviewed: nursing - Labs CBC & Chem 7: 11/24/18 04:57 11/24/18 04:57 Labs: Abnormal Lab Results - Last 24 Hours (Table) 11/23/18 11/24/18 11/24/18 Range/Units 04:04 04:57 04:57 WBC 13.1 H (3.8-10.6) k/uL RBC 3.26 L (4.30-5.90) m/uL Hgb 9.7 L (13.0-17.5) gm/dL Hct 30.8 L (39.0-53.0) % Neutrophils # 10.7 H (1.3-7.7) k/uL Sodium 134 L (137-145) mmol/L BUN 31 H (9-20) mg/dL Procalcitonin 0.57 H (0.02-0.09) ng/mL Microbiology - Last 24 Hours (Table) 11/21/18 19:21 Blood Culture - Preliminary Blood No Growth after 48 hours 11/21/18 19:29 Blood Culture - Preliminary Blood No Growth after 48 hours 11/21/18 20:46 Urine Culture - Final Urine,Voided - Imaging and Cardiology Chest x-ray: image reviewed Assessment and Plan Assessment: 1. Left apical lung carcinoma, invasion of chest wall, poorly differentiated non-small cell lung cancer by navigational bronchoscopy, surgical pathology pending, status post left upper lobectomy with EN block chest wall resection of apical tumor including ribs 2 and 3 2. Chronic tobacco dependence 3. Chronic obstructive pulmonary disease 4. History of bladder cancer 5. History of prostate cancer 6. Osteoarthritis Plan: 1. Will discontinue left posterior chest tube. 2. Await results of surgical pathology. 3. Wean O2 as tolerated. Encourage incentive spirometry use 10 times every hour while awake. 4. Bronchodilators, antibiotics per pulmonology. Continue chest physiotherapy. 5. Increase activity, ambulate in hallway. PT/OT following. 6. Monitor for urinary retention, may straight cath for greater than 300 mL. 7. Pain control with current medication regimen. 8. Encourage continued smoking cessation. 9. Will monitor daily chest x-rays. 10. Medical management per primary care service. 11. More recommendations based on patient's progress. Time with Patient: Greater than 30
--- NOTE | 2018-11-24 07:50 | XR ---
EXAMINATION TYPE: XR chest 1V portable DATE OF EXAM: 11/24/2018 COMPARISON: Prior chest x-ray 11/23/2018 HISTORY: Status post lobectomy TECHNIQUE: Single frontal view of the chest is obtained. FINDINGS: Findings are similar to prior exam. Left-sided chest tube remains in place. There is basil ar increased density, postsurgical change to the upper left hemithorax with subcutaneous emphysema an d rib resection. No pneumothorax. Basilar density also noted on the right. Heart is obscured. Volume loss present in the left hemithorax, patient is rotated. Interstitium is mildly increased. There are overlying cardiac leads. IMPRESSION: Basilar atelectasis versus possible effusion, correlate to exclude pneumonia.
[2018-11-24] MEDS ORDERED: RX INFO: IV CONTRAST WAS GIVEN 1 EACH MISC MISCELLANE PRN (08:25)
--- NOTE | 2018-11-24 08:47 | P.PN ---
Subjective Progress Note Date: 11/24/18 Principal diagnosis: Left upper lobe T4 pulmonary lesion with chest wall involvement, status post left upper lobe resection, chest wall resection involving the second and the third rib, postoperative day 5 This is a 83-year-old male patient with a large T4 lesion of the left upper lobe and the patient underwent a left thoracotomy and left upper lobectomy with resection of the chest wall along with apical tumor and resection of the second and third ribs. The patient is currently postop day #4. Chest tubes are in place. There is no evidence of any air leak. The patient became progressively more hypoxic and currently is on 15 L of oxygen nasal cannula. Chest x-ray from today shows a new pulmonary infiltrate on the right in addition to some left lower lobe pulmonary infiltration. No significant rest or secretions. He has a congested cough. Unable to bring up much sputum. The anterior chest tube was pulled yesterday and the posterior chest tube remains in place. I did not see any air leak however I was told that it is intermittently leaking. The patient is ambulating. He is tolerating his diet. He is hemodynamically stable. Final pathology is not out yet. The patient has also previous history of bladder cancer, prostate cancer, history of smoking and COPD and BPH. No altered mentation. His communicating. No chest wall pain. Pain is under good control for now. No altered mentation. On 11/24/2018 patient seen in follow-up in the intensive care unit, he is awake and alert, sitting up in the recliner, in no acute distress, he states his pain is better controlled on today's exam. His incentive spirometer effort is 1000- 1200 mL today. He remains on high flow oxygen currently on 15 L, lung sounds are extremely diminished at the left lower posterior lobe, and some basilar crackles at the right base. Today's chest x-ray has been reviewed, revealing basilar atelectasis versus possible effusion. His antibiotic coverage will be switched from Bactrim to Zosyn. Fever or chills, today's labs have been reviewed, with blood cell count 13.1, hemoglobin is 9.7, serum sodium is 134, potassium is 4.3, quite is 104, CO2 is 26, BUN is 31, creatinine is 0.79. ProCalcitonin came back elevated at 0.57. Sputum, urine and blood cultures are negative. On today's exam patient was noted to have extreme weakness of the left upper extremity, patient is unable to lift it off the pillow, cannot close his fingers into a fist, in his left arm was continuously slipping off the pillow and patient is unable to pick it up. No facial asymmetry, lower extremity strength is equal. His speech is normal. CT surgery was notified and this is a new finding. We'll obtain CT scan of the brain we'll consult neurology, atelectasis most likely related to long thoracic nerve injury related to thoracotomy and chest wall resection Objective - Vital Signs Vital signs: Vital Signs Temp 97.5 F L 11/24/18 04:00 Pulse 82 11/24/18 07:00 Resp 14 11/24/18 07:00 BP 110/51 11/24/18 07:00 Pulse Ox 92 L 11/24/18 07:00 Intake & Output 11/23/18 11/24/18 11/24/18 18:59 06:59 18:59 Intake Total 660 740 Output Total 360 90 0 Balance 300 650 0 Weight 67 kg Intake: IV 500 Sodium Chloride 0.9% 500 500 ml 500 ml @ 999 mls/hr IV .Q31M ONE Rx#:[id number] Oral 660 240 Output: Chest Tube Drainage 0 0 left chest posterior 0 0 Drainage 90 Left Chest posterior A 90 Urine 360 0 0 Other: Voiding Method Bedside Commode Bedside Commode Urinal Urinal - Exam GENERAL EXAM: Alert, pleasant, 83-year-old white male, on 15 L per high flow nasal cannula comfortable in no apparent distress. HEAD: Normocephalic/atraumatic. EYES: Normal reaction of pupils, equal size. Conjunctiva pink, sclera white. NOSE: Clear with pink turbinates. THROAT: No erythema or exudates. NECK: No masses, no JVD, no thyroid enlargement, no adenopathy. CHEST: No chest wall deformity. Symmetrical expansion. Lateral left chest incision, left-sided chest tube is in place, to water seal, no air leak noted, serosanguineous drainage in the Pleur-evac LUNGS: Equal air entry with diminished breath sounds bilaterally, with some limited crackles at the right base, and more diminished breath sounds at the left base CVS: Regular rate and rhythm, normal S1 and S2, no gallops, no murmurs, no rubs ABDOMEN: Soft, nontender. No hepatosplenomegaly, normal bowel sounds, no gua rding or rigidity. EXTREMITIES: No clubbing, no edema, no cyanosis, 2+ pulses and upper and lower extremities. MUSCULOSKELETAL: Left upper arm is extremely weak, and patient is unable to lift it against gravity, unable to close left hand into a fist. Right upper arm normal strength, bilateral lower extremities with normal strength and sensation, no facial asymmetry noted SPINE: No scoliosis or deformity, no scapular winging noted SKIN: No rashes CENTRAL NERVOUS SYSTEM: Alert and oriented -3. No focal deficits, tone is normal in all 4 extremities. PSYCHIATRIC: Alert and oriented -3. Appropriate affect. Intact judgment and insight. - Labs CBC & Chem 7: 11/24/18 04:57 11/24/18 04:57 Labs: Abnormal Lab Results - Last 24 Hours (Table) 11/23/18 11/24/18 11/24/18 Range/Units 04:04 04:57 04:57 WBC 13.1 H (3.8-10.6) k/uL RBC 3.26 L (4.30-5.90) m/uL Hgb 9.7 L (13.0-17.5) gm/dL Hct 30.8 L (39.0-53.0) % Neutrophils # 10.7 H (1.3-7.7) k/uL Sodium 134 L (137-145) mmol/L BUN 31 H (9-20) mg/dL Procalcitonin 0.57 H (0.02-0.09) ng/mL Microbiology - Last 24 Hours (Table) 11/21/18 19:21 Blood Culture - Preliminary Blood No Growth after 48 hours 11/21/18 19:29 Blood Culture - Preliminary Blood No Growth after 48 hours 11/21/18 20:46 Urine Culture - Final Urine,Voided Assessment and Plan Plan: Assessment: 1 left upper lobe T4 lesion with chest wall involvement. The patient underwent a left upper lobe resection and the patient will undergo a chest wall resection involving resection of the second and the third rib. Patient is postop day #5 2 acute hypoxic respiratory failure, expected outcome of surgery currently on 15 L of oxygen by nasal cannula. Pro-calcitonin level was elevated to 0.54, today's chest x-ray shows basilar atelectasis, volume loss in the left hemithorax, possible effusion, likely related to developing pneumonia 3 left arm weakness, likely related to a long thoracic nerve damage following thoracotomy and chest wall resection, rule out acute intracranial process 4 COPD 5 smoker 6 history of bladder cancer 7 history of prostate cancer 8 left-sided chest tube. Plan: We will switch the antibiotic coverage to Zosyn, today's chest x-ray has been reviewed with Dr. Copeland there is a likelihood of developing pneumonia in the left lung, continue encouraging deep breathing and coughing, breathing treatments. Encourage status and spirometer use, ambulation, will obtain CT brain with contrast to rule out acute intracranial process, in regards to left arm weakness, which is likely to be related to thoracic nerve damage following thoracotomy. We'll consult neurology. This was discussed with the CT surgery. We'll continue to closely follow, patient will remain in the intensive care unit today I performed a history & physical examination of the patient and discussed their management with my nurse practitioner, Rachel Cha. I reviewed the nurse practitioner's note and agree with the documented findings and plan of care. Lung sounds are positive for him to call him diminished breath sounds with some rales at the right base.. The findings and the impression was discussed with the patient. I attest to the documentation by the nurse practitioner. Time with Patient: Greater than 30
[2018-11-24] MEDS: IPRATROPIUM-ALBUTEROL 3 ML NEB INHALATION SCH ×4 (08:52→20:40)
[2018-11-24] MEDS: BUDESONIDE 1 MG/2 ML NEBU INHALATION SCH ×2 (08:52→20:40)
[2018-11-24] MEDS: FORMOTEROL FUMARATE 20 MCG/2 ML NEBU INHALATION SCH ×2 (08:52→20:40)
[2018-11-24] MEDS: PIPERACILLIN-TAZOBACTAM 3.375 GM in SODIUM CHLORIDE 0.9% 100 ML IVPB SCH ×3 (09:19→23:43)
[2018-11-24] MEDS: guaiFENesin 600 MG TABLET.ER PO SCH ×2 (09:20→20:21)
[2018-11-24] MEDS: NICOTINE 21MG/24HR PATCH TRANSDERM SCH (09:20)
[2018-11-24] MEDS: HEPARIN SODIUM,PORCINE 5,000 UNIT/ML 1 ML VIAL SQ SCH ×3 (09:20→23:34)
--- NOTE | 2018-11-24 12:08 | CT ---
EXAMINATION TYPE: CT brain w con DATE OF EXAM: 11/24/2018 COMPARISON: None HISTORY: Left arm weakness, Post OP Left Lobectomy, CT DLP: 1158.4 mGycm Automated exposure control for dose reduction was used. CONTRAST: CT scan of the head is performed with IV Contrast, patient injected with 100 mL of Isovue 300. FINDINGS: There is no abnormal enhancing mass. The globes are intact and the visualized sinuses are clear. The re is a prominent CSF space within the posterior fossa on the left which may represent arachnoid cyst measuring a maximal thickness of 2.1 cm. Low-attenuation the white matter is compatible with nonspec ific white matter changes. Remote microvascular ischemia favored. Mild to moderate generalized degene rative change. IMPRESSION: 1. There is a prominent CSF space along the left cerebellum in the posterior fossa measuring a mary l thickness of 2.1 cm. Arachnoid cyst or chronic subdural hygroma\hematoma in the differential diagno sis. 2. No acute hemorrhage. 3. Degenerative and nonspecific white matter changes most typical remote microvascular ischemia.
[2018-11-24] MEDS: traMADol 50 MG TAB PO PRN (13:41)
--- NOTE | 2018-11-24 13:53 | P.CNNES ---
History of Present Illness Consult date: 11/24/18 Reason for Consult: Left arm weakness History of Present Illness: Patient is a 83-year-old male who has been diagnosed with lung cancer, underwent thoracotomy for removal of the left apical lung mass on , 11/19/2018. It was a more complicated surgery, robotic-assisted thoracoscopic left upper lobectomy converted to open, mediastinal lymph node dissection and chest wall resection including ribs 2 and 3, cryoablation left intercostal nerves 3-7. The next day patient was noted to have left arm swelling with some weakness of the hand. Over the next days, swelling worsened along with the left hand and arm weakness. At present he has no significant movement of his entire left upper extremity. Denies any symptoms involving the right upper and bilateral lower limbs. He is still sore from the surgery. Complains of tingling of the left arm all the way to the shoulder. Patient underwent computed tomography scan of the brain with contrast, which revealed a prominent CSF space along the left cerebellum in the posterior fossa, measuring a maximum thickness of 2.1 cm. Arachnoid cyst or chronic subdural hygroma/hematoma in the differential diagnosis. No metastatic disease visible. Patient has smoked for 75 years. He used to smoke 2 packs per day, cutback to 1 pack per day in the last 10 years. Review of Systems Positive for postoperative pain, left arm weakness, left arm numbness and tingli ng. Denies headache problem with the vision, sore throat, weakness of the lower extremities. He does have peripheral edema. Complains of shortness of breath. Denies double vision. Past Medical History Past Medical History: Cancer, Osteoarthritis (OA), Prostate Disorder Additional Past Medical History / Comment(s): hx. prostate cancer-tx,. Hx. of Bladder cancer., lung cancer, rupture ligaments lt shouder and arthritis History of Any Multi-Drug Resistant Organisms: None Reported Past Surgical History: Bladder Surgery, Heart Catheterization, Orthopedic Surgery, Prostate Surgery Additional Past Surgical History / Comment(s): cystoscopy, BLADDER TUMORS REMOVED, ASHISH. EYE-CATARACT, Prostate surgery with seeds. Shattered knee as a child. Past Anesthesia/Blood Transfusion Reactions: No Reported Reaction Smoking Status: Current every day smoker - Past Family History Mother Family Medical History: No Reported History Medications and Allergies Home Medications Medication Instructions Recorded Confirmed Type Terazosin HCl [Hytrin] 10 mg PO HS 07/30/15 05/16/19 History Acetaminophen [Tylenol] 500 mg PO Q4-6H PRN 11/16/18 11/19/18 History Nicotine 21Mg/24Hr Patch [Habitrol 1 patch TRANSDERM DAILY 11/16/18 11/19/18 History 21Mg/24Hr Patch] Allergies Allergy/AdvReac Type Severity Reaction Status Date / Time No Known Allergies Allergy Verified 11/19/18 15:15 Physical Examination - Vital Signs Vital Signs: Vital Signs Temp Pulse Resp BP Pulse Ox 11/24/18 12:00 98.1 F 110 H 23 114/62 92 L 11/24/18 11:00 92 22 116/54 92 L 11/24/18 10:00 92 25 H 125/58 92 L 11/24/18 09:13 88 11/24/18 09:06 89 11/24/18 09:05 88 11/24/18 09:00 87 18 115/51 95 11/24/18 08:53 86 93 L 11/24/18 08:00 89 20 131/62 92 L 11/24/18 07:00 82 14 110/51 92 L 11/24/18 06:00 76 17 122/56 92 L 11/24/18 05:00 77 22 133/56 90 L 11/24/18 04:00 97.5 F L 71 18 104/48 91 L 11/24/18 03:23 94 L 11/24/18 03:00 61 20 105/45 93 L 11/24/18 02:00 62 18 103/43 92 L 11/24/18 01:00 61 16 107/46 91 L 11/24/18 00:25 93 L 11/24/18 00:00 97.6 F 70 16 100/50 93 L 11/23/18 23:00 71 16 116/55 98 11/23/18 22:00 77 18 129/62 97 11/23/18 21:00 88 21 144/67 90 L 11/23/18 20:45 68 11/23/18 20:10 88 11/23/18 20:01 86 11/23/18 20:00 97.5 F L 86 21 101/48 94 L 11/23/18 19:00 65 14 116/57 93 L 11/23/18 18:00 78 14 113/61 94 L 11/23/18 17:30 70 11/23/18 17:00 69 12 103/55 94 L 11/23/18 16:00 67 11 L 129/64 95 11/23/18 15:00 77 19 105/49 92 L 11/23/18 14:00 92 25 H 107/60 92 L Intake and Output 11/23/18 11/24/18 11/24/18 22:59 06:59 14:59 Intake Total 250 500 250 Output Total 90 0 0 Balance 160 500 250 Intake: IV 500 100 Piperacillin-Tazobactam 3 100 .375 gm In Sodium Chloride 0.9% 100 ml @ 25 mls/hr IVPB Q8HR [facility] Rx# :[id number] Sodium Chloride 0.9% 500 500 ml 500 ml @ 999 mls/hr IV .Q31M ONE Rx#:[id number] Oral 250 150 Output: Chest Tube Drainage 0 0 left chest posterior 0 0 Drainage 90 0 Left Chest posterior A 90 0 Urine 0 0 0 Other: Voiding Method Bedside Commode Bedside Commode Bedside Commode Urinal Urinal Urinal # Voids 1 Weight 67 kg On examination patient is an elderly male, who appears to be in very mild distress. He is in a postoperative state. He is sitting in the recliner, with left arm resting on a pillow. Left arm has swelling more than the legs. Patient's mental status, cranial nerves are normal. Speech and language functions are normal. He has slightly slow mentation. The strength is normal in the right arm and both legs. Patient is very weak in the left arm distally and proximally. He has 0 finger flexion, 0 wrist flexion, 0 biceps, 0 triceps, 2 wrist extension, 0 finger extension. Deltoid is about 3+. Reflexes are 2+ in the right upper limbs at the biceps, triceps and brachioradialis, where as 0 in the entire left upper limb. Reflexes are 2+ at the knees, 1+ ankles bilaterally. Sensory to touch revealed numbness distally in the left hand, with tingling all the way up to the shoulder. No ataxia for finger to nose on the right. Gait deferred. Results - Laboratory Findings CBC and BMP: 11/24/18 04:57 11/24/18 04:57 Abnormal Lab Findings: Abnormal Labs 11/10/18 11/19/18 11/19/18 12:15 12:46 13:32 WBC RBC 2.69 L Hgb 8.1 L D Hct 24.8 L MCHC Neutrophils # 8.9 H Lymphocytes # 0.7 L ABG pH 7.34 L ABG pO2 220 H ABG O2 Saturation 99.1 H Sodium Chloride BUN Creatinine Glucose POC Glucose (mg/dL) Calcium ALT Total Protein Albumin Procalcitonin Urine Protein Urine Blood Ur Leukocyte Esterase Urine RBC Urine WBC Urine WBC Clumps Amorphous Sediment Urine Bacteria Hyaline Casts Urine Mucus Crossmatch See Detail 11/19/18 11/19/18 11/20/18 16:41 17:14 04:03 WBC 14.3 H RBC 3.32 L Hgb 9.3 L Hct 31.5 L MCHC 29.6 L Neutrophils # 12.1 H Lymphocytes # 0.9 L ABG pH ABG pO2 ABG O2 Saturation Sodium Chloride BUN Creatinine Glucose POC Glucose (mg/dL) 175 H 153 H Calcium ALT Total Protein Albumin Procalcitonin Urine Protein Urine Blood Ur Leukocyte Esterase Urine RBC Urine WBC Urine WBC Clumps Amorphous Sediment Urine Bacteria Hyaline Casts Urine Mucus Crossmatch 11/20/18 11/21/18 11/21/18 04:03 05:11 05:11 WBC 15.9 H RBC 3.18 L Hgb 9.4 L Hct 29.6 L MCHC Neutrophils # Lymphocytes # ABG pH ABG pO2 ABG O2 Saturation Sodium 134 L Chloride 108 H BUN 21 H Creatinine 0.63 L Glucose 128 H 113 H POC Glucose (mg/dL) Calcium 7.9 L 8.2 L ALT 19 L Total Protein 4.6 L Albumin 2.1 L Procalcitonin Urine Protein Urine Blood Ur Leukocyte Esterase Urine RBC Urine WBC Urine WBC Clumps Amorphous Sediment Urine Bacteria Hyaline Casts Urine Mucus Crossmatch 11/21/18 11/22/18 11/22/18 20:46 04:20 04:20 WBC 14.3 H RBC 3.52 L Hgb 9.9 L Hct 33.2 L MCHC 29.9 L Neutrophils # Lymphocytes # ABG pH ABG pO2 ABG O2 Saturation Sodium 132 L Chloride BUN Creatinine 0.62 L Glucose 109 H POC Glucose (mg/dL) Calcium 8.2 L ALT Total Protein 4.8 L Albumin 2.2 L Procalcitonin Urine Protein Trace H Urine Blood Trace H Ur Leukocyte Esterase Moderate H Urine RBC 12 H Urine WBC 23 H Urine WBC Clumps Rare H Amorphous Sediment Rare H Urine Bacteria Rare H Hyaline Casts 6 H Urine Mucus Rare H Crossmatch 11/23/18 11/23/18 11/23/18 04:04 04:04 04:04 WBC 13.8 H RBC 3.12 L Hgb 9.2 L Hct 29.4 L MCHC Neutrophils # 11.1 H Lymphocytes # ABG pH ABG pO2 ABG O2 Saturation Sodium 134 L Chloride BUN 22 H Creatinine Glucose 104 H POC Glucose (mg/dL) Calcium ALT Total Protein Albumin Procalcitonin 0.57 H Urine Protein Urine Blood Ur Leukocyte Esterase Urine RBC Urine WBC Urine WBC Clumps Amorphous Sediment Urine Bacteria Hyaline Casts Urine Mucus Crossmatch 11/24/18 11/24/18 04:57 04:57 WBC 13.1 H RBC 3.26 L Hgb 9.7 L Hct 30.8 L MCHC Neutrophils # 10.7 H Lymphocytes # ABG pH ABG pO2 ABG O2 Saturation Sodium 134 L Chloride BUN 31 H Creatinine Glucose POC Glucose (mg/dL) Calcium ALT Total Protein Albumin Procalcitonin Urine Protein Urine Blood Ur Leukocyte Esterase Urine RBC Urine WBC Urine WBC Clumps Amorphous Sediment Urine Bacteria Hyaline Casts Urine Mucus Crossmatch Assessment and Plan Assessment: * 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 This could be possibly traumatic (surgical), or inflammatory (postsurgical) in nature. No evidence of metastatic disease noted in the CT of the brain. * Non-small cell lung cancer, newly diagnosed * Tobacco user Plan: Symptomatic treatment. May consider steroids, Solu-Medrol 250 mg IV PB twice a day for a few days, if no medical contraindication, although uncertain if it will be beneficial. We will follow clinically. May need EMG and nerve conduction of left upper extremity as an outpatient if the weakness persist.
[2018-11-24] MEDS: MAGNESIUM HYDROXIDE 2,400 MG/10 ML CUP PO PRN (17:23)
--- NOTE | 2018-11-24 18:35 | P.PN ---
Subjective Mr. Ferraro is an 82-year-old male who's been diagnosed with poorly differentiated non-small cell lung cancer admitted for left upper lobe lobectomy. Patient had chest wall resection along with second and third rib and lymph node dissection. On 11/23/2018 -patient is sitting up in a recliner by the bedside. He complains of mild difficulty in breathing. He continues to be on high flow oxygen at 15 L. Patient still has his posterior chest tube and Quintero's catheter in place. Patient's epidural has been discontinued yesterday and he is getting Dilaudid for his pain. Patient reports the pain medication does help, but at times he feels some spasms. He is being treated for a UTI with Bactrim. Overall patient seems to be improving. Patient still continues to have swelling of the left upper extremity, it is wrapped in Trino bandage. Doppler done for DVT has been negative. Overnight no active issues reported by nursing staff. Patient has incentive spirometry at the bedside, he is seeing that he is trying his best to get it to 1500 MLS as he is able to do it only upto 1250 mL. 11/24/2018 pt is in the ICU , he is generally weak, but denies chest pain , he has some mild dyspnea. no abdominal pain or nausea or vomiting . vitals are stable , his respiratory rate is 25 per minute. he is saturating 94 % on 15 L high flow oxygen. labs reviewed showing WBC 13.1K. Hb 9.7. Platelets 324. sodium 134. normal potssium and creatinine. normal liver enz. Had brain CT showing possible arachinoid cyst of 2.1 cm in the cerebellum, DDx hematoma or chronic hygroma , neurology consult is called,as per evaluation mostly this is related to surgery. recommended steroid and outpt workup if weakness persists. chest xray : bilateral atelectasis. pt is currently on zosyn. pulmonary critical care team are following the pt closely. Objective - Vital Signs Vital signs: Vital Signs Temp 98.2 F 11/24/18 16:00 Pulse 86 11/24/18 17:00 Resp 25 H 11/24/18 17:00 BP 127/48 11/24/18 17:00 Pulse Ox 94 L 11/24/18 17:00 Intake & Output 11/23/18 11/24/18 11/24/18 18:59 06:59 18:59 Intake Total 660 740 620 Output Total 360 90 0 Balance 300 650 620 Weight 67 kg Intake: IV 500 220 0.9 120 Piperacillin-Tazobactam 3 100 .375 gm In Sodium Chloride 0.9% 100 ml @ 25 mls/hr IVPB Q8HR [facility] Rx# :[id number] Sodium Chloride 0.9% 500 500 ml 500 ml @ 999 mls/hr IV .Q31M ONE Rx#:[id number] Oral 660 240 400 Output: Chest Tube Drainage 0 0 left chest posterior 0 0 Drainage 90 Left Chest posterior A 90 Urine 360 0 0 Other: Voiding Method Bedside Commode Bedside Commode Bedside Commode Urinal Urinal Urinal # Voids 1 - Exam -GENERAL: The patient is alert and oriented x3, not in any acute distress. Catechetic HEENT: Mild pallor. No icterus CARDIOVASCULAR: S1 and S2 heard. Tachycardia. -PULMONARY: Posterior chest tube in place. No breath sounds on the left side of the chest. Right-sided breath sounds are coarse . ABDOMEN: Soft, nontender, nondistended, normoactive bowel sounds. No palpable organomegaly. Quintero's catheter in place. MUSCULOSKELETAL: No joint swelling or deformity. -EXTREMITIES: Pitting edema of the left upper extremity from elbow to the hand. Bilateral pitting edema bilateral lower extremities up to the knee joints. NEUROLOGICAL: Gross neurological examination did not reveal any focal deficits. SKIN: Skin is fragile - Labs CBC & Chem 7: 11/24/18 04:57 11/24/18 04:57 Labs: Abnormal Lab Results - Last 24 Hours (Table) 11/24/18 11/24/18 Range/Units 04:57 04:57 WBC 13.1 H (3.8-10.6) k/uL RBC 3.26 L (4.30-5.90) m/uL Hgb 9.7 L (13.0-17.5) gm/dL Hct 30.8 L (39.0-53.0) % Neutrophils # 10.7 H (1.3-7.7) k/uL Sodium 134 L (137-145) mmol/L BUN 31 H (9-20) mg/dL Microbiology - Last 24 Hours (Table) 11/21/18 19:21 Blood Culture - Preliminary Blood No Growth after 48 hours 11/21/18 19:29 Blood Culture - Preliminary Blood No Growth after 48 hours Assessment and Plan Assessment: Status post left upper lobe thoracotomy and resection of second and third ribs - postop day 3 Poorly differentiated non-small cell lung carcinoma Chronic obstructive pulmonary disease arachnoid cyst of the cerebellum Heavy nicotine dependence Leukocytosis Plan: this is a pleasant 83 M who presents for lung ca, s/p resection of the left lung lobectomy . continue with antibiotic, continue with surgical team and critical team recommendation. Patient got the left upper extremity Doppler that was negative for any DVT. Blood cultures and sputum cultures - no growth until now. Patient encouraged to use incentive spirometry and continue with breathing treatments. Continue with the current medication regimen. Patient has been started on Bactrim for possible UTI. Patient's epidural has be discontinued His pain is under good control with pain medicine. DVT prophylaxis with heparin .Overall prognosis is guarded. Further recommendations to follow depending on the progress of the patient.
[2018-11-24] MEDS: DOXAZOSIN 4 MG TAB PO SCH (20:21)
[2018-11-24] MEDS: SENNOSIDES-DOCUSATE SODIUM 1 EACH TAB PO SCH (20:21)
[2018-11-25 04:10] LABS: HCT 31.3 % (39.0-53.0); HGB 9.4 gm/dL (13.0-17.5); Hypochromasia Slight; MCH 28.3 pg (25.0-35.0); MCV 94.2 fL (80.0-100.0); Mean Platelet Volume 7.7; Platelet Count 410 k/uL (150-450); RBC 3.33 m/uL (4.30-5.90); WBC 14.4 k/uL (3.8-10.6)
[2018-11-25 04:19] LABS: Calcium 8.6 mg/dL (8.4-10.2); Potassium 4.4 mmol/L (3.5-5.1)
[2018-11-25] MEDS: PANTOPRAZOLE 40 MG TABLET PO SCH (06:27)
[2018-11-25] MEDS: KETOROLAC 30 MG/ML 1 ML VIAL IVP SCH ×2 (06:27→12:42)
--- NOTE | 2018-11-25 07:45 | P.PN ---
Subjective Progress Note Date: 11/25/18 Principal diagnosis: Left apical lung carcinoma, invasion of chest wall, poorly differentiated non- small cell lung cancer diagnosed by navigational bronchoscopy on 10/08/2018. Previous medical history of chronic tobacco abuse, COPD, bladder cancer, prostate cancer, BPH, osteoarthritis. POD #6 left thoracoscopic with attempted robotic left upper lobectomy converted to open with EN bloc chest wall resection of the apical tumor including ribs 2 and 3. Final pathology results demonstrate poorly differentiated non-small cell carcinoma consistent with poorly differentiated pulmonary adenocarcinoma, invading the parietal pleura and chest wall, margins negative, with no regional lymph node involvement or distant metastasis, consistent with stage IIIA. Postoperative left arm weakness consistent with brachial plexopathy, expected outcome given the the proximity of the brachial plexus to the surgical resection site. Sputum culture positive for streptococcus pneumoniae, unexpected outcome, currently on antibiotics The patient is currently sleeping in bed in no acute distress. Oxygen weaned down to 8 Liters Hi-flow nasal cannula with oxygen saturation 99-100% at rest, per nursing patient does desat with increased activity and conversation. Posterior chest tube discontinued yesterday. Left arm weakness noted, likely from thoracic nerve injury. CT of brain ordered by pulmonoloy, no acute process. Neurology consulted, agree with probable brachial plexus injury. Upon waking for assessment patient states pain is controlled, his arm weakness is a little better, and he has no new complaints. Objective - Vital Signs Vital signs: Vital Signs Temp 98.5 F 11/25/18 03:00 Pulse 69 11/25/18 06:00 Resp 10 L 11/25/18 06:00 BP 130/58 11/25/18 06:00 Pulse Ox 96 11/25/18 06:00 Intake & Output 11/24/18 11/25/18 11/25/18 18:59 06:59 18:59 Intake Total 640 320 Output Total 0 Balance 640 320 Weight 64.2 kg Intake: IV 240 320 0.9 140 220 Piperacillin-Tazobactam 3 100 100 .375 gm In Sodium Chloride 0.9% 100 ml @ 25 mls/hr IVPB Q8HR [facility] Rx# :[id number] Oral 400 Output: Urine 0 Other: Voiding Method Bedside Commode Bedside Commode Urinal Urinal # Voids 1 2 - Constitutional General appearance: Present: cooperative, no acute distress - Respiratory Details: Lungs sounds diminished on the left. Respirations even, non-labored. Currently on 8 L high flow nasal cannula with oxygen saturation 99-100%. Only able to achieve 500 mL on his incentive spirometry. - Cardiovascular Details: S1, S2 present. Regular rate and rhythm, sinus rhythm on telemetry. Palpable peripheral pulses bilaterally. No lower extremity edema present, edema to left upper extremity remains. No calf pain or tenderness noted. SCDs present. - Gastrointestinal Gastrointestinal Comment(s): Abdomen soft, nontender, nondistended. Active bowel sounds present 4 quadrants. Tolerating diet. Positive flatus, negative bowel movement since surgery. - Genitourinary Genitourinary Comment(s): Patient has voided clear yellow urine. - Integumentary Integumentary Comment(s): Skin is warm and dry with evidence of good perfusion. Left lateral chest wall incisions well approximated. 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 - Psychiatric Psychiatric: Present: A&O x's 3, appropriate affect - Allied health notes Allied health notes reviewed: nursing - Labs CBC & Chem 7: 11/25/18 03:58 11/25/18 03:58 Labs: Abnormal Lab Results - Last 24 Hours (Table) 11/25/18 11/25/18 Range/Units 03:58 03:58 WBC 14.4 H (3.8-10.6) k/uL RBC 3.33 L (4.30-5.90) m/uL Hgb 9.4 L (13.0-17.5) gm/dL Hct 31.3 L (39.0-53.0) % MCHC 30.0 L (31.0-37.0) g/dL Sodium 136 L (137-145) mmol/L BUN 36 H (9-20) mg/dL Glucose 113 H (74-99) mg/dL Microbiology - Last 24 Hours (Table) 11/21/18 19:21 Blood Culture - Preliminary Blood No Growth after 72 hours 11/21/18 19:29 Blood Culture - Preliminary Blood No Growth after 72 hours - Imaging and Cardiology Chest x-ray: image reviewed Assessment and Plan Assessment: 1. Left apical lung carcinoma, invasion of chest wall, poorly differentiated non-small cell lung cancer by navigational bronchoscopy, status post left upper lobectomy with EN block chest wall resection of apical tumor including ribs 2 and 3, surgical pathology consistent with poorly differentiated pulmonary adenocarcinoma, stage IIIA 2. Chronic tobacco dependence 3. Chronic obstructive pulmonary disease 4. History of bladder cancer 5. History of prostate cancer 6. Osteoarthritis 7. Left arm weakness consistent with brachial plexopathy 8. Sputum culture positive for streptococcus pneumoniae Plan: 1. Continue to wean O2 as tolerated. Encourage incentive spirometry use 10 times every hour while awake. 2. Bronchodilators, antibiotics per pulmonology. Continue chest physiotherapy. 3. Increase activity, ambulate in hallway. PT/OT following. Needs aggressive therapy for left arm weakness, anticipate recovery from weakness will take time, not expected for full recovery before discharge. 4. Pain control with current medication regimen. 5. Encourage continued smoking cessation. 6. Will monitor daily chest x-rays. 7. Medical management per primary care service. 8. Discharge planning in progress. Anticipate discharge to [facility] per patient/family request once patient able to have oxygen needs weaned further. 9. More recommendations based on patient's progress. Time with Patient: Greater than 30
[2018-11-25] MEDS: BUDESONIDE 1 MG/2 ML NEBU INHALATION SCH ×2 (07:48→20:21)
[2018-11-25] MEDS: FORMOTEROL FUMARATE 20 MCG/2 ML NEBU INHALATION SCH ×2 (07:48→20:21)
[2018-11-25] MEDS: IPRATROPIUM-ALBUTEROL 3 ML NEB INHALATION SCH ×4 (07:49→20:21)
--- NOTE | 2018-11-25 07:53 | P.PN ---
Subjective Mr. Ferraro is an 82-year-old male who's been diagnosed with poorly differentiated non-small cell lung cancer admitted for left upper lobe lobectomy. Patient had chest wall resection along with second and third rib and lymph node dissection. On 11/23/2018 -patient is sitting up in a recliner by the bedside. He complains of mild difficulty in breathing. He continues to be on high flow oxygen at 15 L. Patient still has his posterior chest tube and Quintero's catheter in place. Patient's epidural has been discontinued yesterday and he is getting Dilaudid for his pain. Patient reports the pain medication does help, but at times he feels some spasms. He is being treated for a UTI with Bactrim. Overall patient seems to be improving. Patient still continues to have swelling of the left upper extremity, it is wrapped in Trino bandage. Doppler done for DVT has been negative. Overnight no active issues reported by nursing staff. Patient has incentive spirometry at the bedside, he is seeing that he is trying his best to get it to 1500 MLS as he is able to do it only upto 1250 mL. 11/24/2018 pt is in the ICU , he is generally weak, but denies chest pain , he has some mild dyspnea. no abdominal pain or nausea or vomiting . vitals are stable , his respiratory rate is 25 per minute. he is saturating 94 % on 15 L high flow oxygen. labs reviewed showing WBC 13.1K. Hb 9.7. Platelets 324. sodium 134. normal potssium and creatinine. normal liver enz. Had brain CT showing possible arachinoid cyst of 2.1 cm in the cerebellum, DDx hematoma or chronic hygroma , neurology consult is called,as per evaluation mostly this is related to surgery. recommended steroid and outpt workup if weakness persists. chest xray : bilateral atelectasis. pt is currently on zosyn. pulmonary critical care team are following the pt closely. 11/25/2018 Patient is lying in bed not in respiratory distress, he remains in the ICU. Patient is lethargic and weak. 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 CT of the brain showed possible arachnoid cyst In the cerebellum. Patient has been followed closely by the cardiothoracic team floor left upper lobe lobectomy and chest wall resection along the second and third ribs with lymph node dissection for his lung cancer. He saturating 94% on 8 L of oxygen via high flow cannula. A breathing rate limiting per minutes, vessel Vitas looks stable. Patient is afebrile. WBC is 14.4 K. BMP reviewed sodium 136, creatinine 1.0. Cultures so far negative for growing bacteria. Chest x-ray showing increased density in the left base, with left hemithorax revealed no pneumothorax. Patient currently on Zosyn Objective - Vital Signs Vital signs: Vital Signs Temp 98.5 F 11/25/18 03:00 Pulse 70 11/25/18 07:00 Resp 11 L 11/25/18 07:00 BP 136/64 11/25/18 07:00 Pulse Ox 94 L 11/25/18 07:00 Intake & Output 11/24/18 11/25/18 11/25/18 18:59 06:59 18:59 Intake Total 640 320 20 Output Total 0 Balance 640 320 20 Weight 64.2 kg Intake: IV 240 320 20 0.9 140 220 20 Piperacillin-Tazobactam 3 100 100 .375 gm In Sodium Chloride 0.9% 100 ml @ 25 mls/hr IVPB Q8HR [facility] Rx# :[id number] Oral 400 Output: Urine 0 Other: Voiding Method Bedside Commode Bedside Commode Urinal Urinal # Voids 1 2 - Exam -GENERAL: The patient is alert and oriented x3, not in any acute distress. Catechetic and lethargic HEENT: Mild pallor. No icterus CARDIOVASCULAR: S1 and S2 heard. Tachycardia. -PULMONARY: Posterior chest tube in place. No breath sounds on the left side of the chest. Right-sided breath sounds are coarse . ABDOMEN: Soft, nontender, nondistended, normoactive bowel sounds. No palpable organomegaly. Quintero's catheter in place. MUSCULOSKELETAL: No joint swelling or deformity. -EXTREMITIES: Pitting edema of the left upper extremity from elbow to the hand. Bilateral pitting edema bilateral lower extremities up to the knee joints. NEUROLOGICAL: Gross neurological examination did not reveal any focal deficits. SKIN: Skin is fragile - Labs CBC & Chem 7: 11/25/18 03:58 11/25/18 03:58 Labs: Abnormal Lab Results - Last 24 Hours (Table) 11/25/18 11/25/18 Range/Units 03:58 03:58 WBC 14.4 H (3.8-10.6) k/uL RBC 3.33 L (4.30-5.90) m/uL Hgb 9.4 L (13.0-17.5) gm/dL Hct 31.3 L (39.0-53.0) % MCHC 30.0 L (31.0-37.0) g/dL Sodium 136 L (137-145) mmol/L BUN 36 H (9-20) mg/dL Glucose 113 H (74-99) mg/dL Microbiology - Last 24 Hours (Table) 11/21/18 19:21 Blood Culture - Preliminary Blood No Growth after 72 hours 11/21/18 19:29 Blood Culture - Preliminary Blood No Growth after 72 hours Assessment and Plan Assessment: Status post left upper lobe thoracotomy and resection of second and third ribs Poorly differentiated non-small cell lung carcinoma Chronic obstructive pulmonary disease arachnoid cyst of the cerebellum Heavy nicotine dependence Leukocytosis Plan: this is a pleasant 83 M who presents for lung ca, s/p resection of the left lung lobectomy . continue with antibiotic, continue with surgical team and critical team recommendation. Patient got the left upper extremity Doppler that was negative for any DVT. Blood cultures and sputum cultures - no growth until now. Patient encouraged to use incentive spirometry and continue with breathing treatments. Continue with the current medication regimen. Patient has been started on Zosyn. His pain is under good control with pain medicine. DVT prophylaxis with heparin .Overall prognosis is guarded. Further recommendations to follow depending on the progress of the patient.
--- NOTE | 2018-11-25 08:40 | XR ---
EXAMINATION TYPE: XR chest 1V portable DATE OF EXAM: 11/25/2018 COMPARISON: 11/24/2018 HISTORY: Shortness of breath TECHNIQUE: Single frontal view of the chest is obtained. FINDINGS: Postsurgical changes are noted and there is confluent consolidation and pleural effusion o n the left. Previous rib resection with suspected apical lucency likely postsurgical. Subcutaneous em physema noted. Right basilar infiltrate stable. IMPRESSION: 1. Stable areas of consolidation and pleural effusion. 2. Persistent subcutaneous emphysema. 3. Chest tube is been removed. Apical lucency is similar to the prior exam may be postsurgical rather than representing pneumothorax.
[2018-11-25] MEDS: HEPARIN SODIUM,PORCINE 5,000 UNIT/ML 1 ML VIAL SQ SCH ×3 (09:06→23:18)
[2018-11-25] MEDS: PIPERACILLIN-TAZOBACTAM 3.375 GM in SODIUM CHLORIDE 0.9% 100 ML IVPB SCH ×3 (09:06→23:18)
[2018-11-25] MEDS: guaiFENesin 600 MG TABLET.ER PO SCH ×2 (09:07→20:50)
[2018-11-25] MEDS: NICOTINE 21MG/24HR PATCH TRANSDERM SCH (09:07)
--- NOTE | 2018-11-25 11:31 | P.PN ---
Subjective Progress Note Date: 11/25/18 Patient denies any changes in his condition. Left arm still completely weak, diffusely proximally and distally. Objective - Vital Signs Vital signs: Vital Signs Temp 97.5 F L 11/25/18 08:00 Pulse 64 11/25/18 11:00 Resp 12 11/25/18 11:00 BP 116/94 11/25/18 11:00 Pulse Ox 97 11/25/18 11:00 Intake & Output 11/24/18 11/25/18 11/25/18 18:59 06:59 18:59 Intake Total 640 320 400 Output Total 0 Balance 640 320 400 Weight 64.2 kg Intake: IV 240 320 200 0.9 140 220 100 Piperacillin-Tazobactam 3 100 100 100 .375 gm In Sodium Chloride 0.9% 100 ml @ 25 mls/hr IVPB Q8HR [facility] Rx# :[id number] Oral 400 200 Output: Urine 0 Other: Voiding Method Bedside Commode Bedside Commode Urinal Urinal # Voids 1 2 - Exam Examination unchanged. Still with diffuse weakness of the left upper extremity, distally and proximally. Pupils are round and reactive to light, small in size about 3 mm, reacting to 2 mm bilaterally. No Arturo's syndrome. - Labs CBC & Chem 7: 11/25/18 03:58 11/25/18 03:58 Labs: Abnormal Lab Results - Last 24 Hours (Table) 11/25/18 11/25/18 Range/Units 03:58 03:58 WBC 14.4 H (3.8-10.6) k/uL RBC 3.33 L (4.30-5.90) m/uL Hgb 9.4 L (13.0-17.5) gm/dL Hct 31.3 L (39.0-53.0) % MCHC 30.0 L (31.0-37.0) g/dL Sodium 136 L (137-145) mmol/L BUN 36 H (9-20) mg/dL Glucose 113 H (74-99) mg/dL Microbiology - Last 24 Hours (Table) 11/22/18 15:10 Gram Stain - Preliminary Sputum Sputum Culture - Preliminary Streptococcus pneumoniae 11/21/18 19:21 Blood Culture - Preliminary Blood No Growth after 72 hours 11/21/18 19:29 Blood Culture - Preliminary Blood No Growth after 72 hours Assessment and Plan Assessment: * 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 This could be possibly traumatic (surgical), or inflammatory (postsurgical) in nature. No evidence of meta static disease noted in the CT of the brain. * Non-small cell lung cancer, newly diagnosed * Tobacco user Plan: Symptomatic treatment. Discussed with Dr. Copeland in detail. Steroids at present has more risks than benefit, due to significant pneumonia, which can potentially get worse with steroids. May need EMG and nerve conduction of left upper extremity as an outpatient if the weakness persist.
[2018-11-25] MEDS ORDERED: KETOROLAC 30 MG/ML 1 ML VIAL IVP PRN (14:24)
[2018-11-25] MEDS: MAGNESIUM HYDROXIDE 2,400 MG/10 ML CUP PO PRN (14:33)
--- NOTE | 2018-11-25 15:20 | P.PN ---
Subjective Progress Note Date: 11/25/18 On today's evaluation of 11/25/2018, the patient is awake and alert and following commands and answering questions pain no significant respiratory distress. The chest tube was removed earlier today. There is volume loss in the left lung compared to the right and this partly related to the surgical resection of the left upper lobe. At the same time there is consolidation of the lower lobe consistent with pneumonia. The sputum culture came back positive for strep pneumo and the patient is on IV Zosyn. No fever. No chills. No hypotension. He has a congested cough, unable to bring up much sputum. He is on incentive spirometer and is pulling approximately 1000 on his INR. He is on oxygen at a this per minute nasal cannula. He is tolerating diet. Having no bowel movements and the patient is being given stool softeners.. Hemodynamically stable. The patient continues to have weakness in his left upper extremity related to breakup XLP that occurred at time of surgery. No signs of any CVA. Also, the final path findings out. The patient has a poorly differentiated pulmonary adenocarcinoma invading the parietal pleura and the chest wall. Surgical resection margins are negative. Total of 9 Peribronchial and hilar lymph nodes were negative for metastatic disease. As such, the pat ient has a T4 N0 M0 disease. The patient has 3A disease. Objective - Vital Signs Vital signs: Vital Signs Temp 96 F L 11/25/18 12:00 Pulse 83 11/25/18 15:00 Resp 24 11/25/18 15:00 BP 119/50 11/25/18 15:00 Pulse Ox 80 L 11/25/18 15:00 Intake & Output 11/24/18 11/25/18 11/25/18 18:59 06:59 18:59 Intake Total 667 610 4439 Output Total 0 175 Balance 640 320 885 Weight 64.2 kg Intake: IV 240 320 280 0.9 140 220 180 Piperacillin-Tazobactam 3 100 100 100 .375 gm In Sodium Chloride 0.9% 100 ml @ 25 mls/hr IVPB Q8HR [facility] Rx# :[id number] Oral 400 780 Output: Urine 0 175 Other: Voiding Method Bedside Commode Bedside Commode Bedside Commode Urinal Urinal Urinal # Voids 1 2 - Exam - Constitutional General appearance: Present: cooperative, no acute distress - Respiratory Details: lungs sounds diminished on the left. Respirations even, slightly dyspneic with conversation. The patient has a clear surgical wounds. Chest tubes are out. Breath sounds are diminished in the left lung base compared to the right. - Cardiovascular Details: S1, S2 present. Regular rate and rhythm, sinus rhythm on telemetry. Palpable peripheral pulses bilaterally. No lower extremity edema present, slight edema to left upper extremity remains. No calf pain or tenderness noted. SCDs present. - Gastrointestinal Gastrointestinal Comment(s): abdomen soft, nontender, nondistended. Active bowel sounds present 4 quadrants. Tolerating diet. Negative bowel movement since surgery. - Genitourinary Genitourinary Comment(s): Quintero present draining clear, yellow urine. Output 50-100 mL/h overnight. - Integumentary Integumentary Comment(s): Skin is warm and dry with evidence of good perfusion. Left lateral chest wall incisions well approximated. 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 As such, the motor function left upper extremities +1/5. - Musculoskeletal Musculoskeletal: Present: generalized weakness - Psychiatric Psychiatric: Present: A&O x's 3, appropriate affect, intact judgment & insight - Labs CBC & Chem 7: 11/25/18 03:58 11/25/18 03:58 Labs: Abnormal Lab Results - Last 24 Hours (Table) 11/10/18 11/25/18 11/25/18 Range/Units 12:15 03:58 03:58 WBC 14.4 H (3.8-10.6) k/uL RBC 3.33 L (4.30-5.90) m/uL Hgb 9.4 L (13.0-17.5) gm/dL Hct 31.3 L (39.0-53.0) % MCHC 30.0 L (31.0-37.0) g/dL Sodium 136 L (137-145) mmol/L BUN 36 H (9-20) mg/dL Glucose 113 H (74-99) mg/dL Crossmatch See Detail Microbiology - Last 24 Hours (Table) 11/22/18 15:10 Gram Stain - Preliminary Sputum Sputum Culture - Preliminary Streptococcus pneumoniae 11/21/18 19:21 Blood Culture - Preliminary Blood No Growth after 72 hours 11/21/18 19:29 Blood Culture - Preliminary Blood No Growth after 72 hours Assessment and Plan Plan: 1 poorly differentiated stage IIIa non-small cell lung cancer in the form of adenocarcinoma. The patient underwent a left upper lobe resection and the patient will undergo a chest wall resection involving resection of the second and the third rib. Patient is postop day #6. The patient has developed a brachial plexopathy and he has significant weakness/paralysis of the left upper extremity which is a postoperative surgical complication. The patient has his chest tubes removed and the patient has a left lower lobe consolidation/pneumonia consistent with pneumococcal pneumonia. The patient is currently on IV Zosyn. 2 acute hypoxic respiratory failure, expected outcome of surgery currently on 8 L of oxygen by nasal cannula. Patient has left lower lobe pneumonia with strep pneumo and the patient is currently on IV Zosyn. Oxygenation is unchanged compared to yesterday and the patient is on 8 L of oxygen by nasal cannula. The patient using incentive spirometer. 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 Provide the patient is sling. Physical therapy regarding the left upper extremity weakness. Chest tubes have been removed. Continue bronchodilators. Incentive spirometer. Aggressive reconditioning with walking and ambulation. We'll continue to follow.
[2018-11-25] MEDS: DOXAZOSIN 4 MG TAB PO SCH (20:50)
[2018-11-25] MEDS: SENNOSIDES-DOCUSATE SODIUM 1 EACH TAB PO SCH (20:51)
[2018-11-26 05:10] LABS: HCT 30.8 % (39.0-53.0); HGB 9.6 gm/dL (13.0-17.5); Hypochromasia Slight; MCH 29.1 pg (25.0-35.0); MCHC 31.3 g/dL (31.0-37.0); MCV 93.1 fL (80.0-100.0); Mean Platelet Volume 7.3; Platelet Count 432 k/uL (150-450); RBC 3.31 m/uL (4.30-5.90); RDW 15.1 % (11.5-15.5); WBC 16.8 k/uL (3.8-10.6)
[2018-11-26 05:25] LABS: Anion Gap 4 mmol/L; Blood Urea Nitrogen 40 mg/dL (9-20); Calcium 8.7 mg/dL (8.4-10.2); Carbon Dioxide 28 mmol/L (22-30); Chloride 106 mmol/L (98-107); Glucose 121 mg/dL (74-99); Potassium 4.7 mmol/L (3.5-5.1); Sodium 138 mmol/L (137-145)
--- NOTE | 2018-11-26 08:25 | XR ---
EXAMINATION TYPE: XR chest 1V portable DATE OF EXAM: 11/26/2018 COMPARISON: Prior chest x-ray 11/25/2018 HISTORY: Status post lobectomy TECHNIQUE: Single frontal view of the chest is obtained. FINDINGS: Pleural parenchymal changes are similar to prior exam. No pneumothorax. Chest wall deformi ties are stable. Subcutaneous emphysema again noted. IMPRESSION: There is no significant interval change. Probable basilar atelectasis, difficult to excl ude pneumonia, effusion. Postop changes.
--- NOTE | 2018-11-26 08:35 | P.PN ---
Subjective Progress Note Date: 11/26/18 Principal diagnosis: Left apical lung carcinoma, invasion of chest wall, poorly differentiated non- small cell lung cancer diagnosed by navigational bronchoscopy on 10/08/2018. Previous medical history of chronic tobacco abuse, COPD, bladder cancer, prostate cancer, BPH, osteoarthritis. POD #7 left thoracoscopic with attempted robotic left upper lobectomy converted to open with EN bloc chest wall resection of the apical tumor including ribs 2 and 3. Final pathology results demonstrate poorly differentiated non-small cell carcinoma consistent with poorly differentiated pulmonary adenocarcinoma, invading the parietal pleura and chest wall, margins negative, with no regional lymph node involvement or distant metastasis, consistent with stage IIIA. Postoperative left arm weakness consistent with brachial plexopathy, expected outcome given the the proximity of the brachial plexus to the surgical resection site. Sputum culture positive for streptococcus pneumoniae, unexpected outcome, currently on antibiotics Patient is currently in the process of getting up to the recliner with assist. He denies pain, shortness of breath although he does appear visibly dyspneic with conversation. O2 requirements being weaned down, at rest patient's oxygen saturation is in the high 90s, does dip down to 90-92% on 8 L with conversation and activity. States he did cough up a significant amount of thick tenacious sputum last night. Sputum culture positive for strep pneumonia, remains on IV Zosyn per pulmonology. Left arm remains weak, patient able to move his wrist and wiggle his fingers minimally. Objective - Vital Signs Vital signs: Vital Signs Temp 97.7 F 11/26/18 08:00 Pulse 69 11/26/18 08:00 Resp 18 11/26/18 08:00 BP 141/66 11/26/18 08:00 Pulse Ox 95 11/26/18 08:00 Intake & Output 11/25/18 11/26/18 11/26/18 18:59 06:59 18:59 Intake Total 1460 260 40 Output Total 325 250 0 Balance 1135 10 40 Weight 62.4 kg Intake: IV 340 260 40 0.9 240 160 40 Piperacillin-Tazobactam 3 100 100 .375 gm In Sodium Chloride 0.9% 100 ml @ 25 mls/hr IVPB Q8HR [facility] Rx# :[id number] Intake, IV Titration 100 Amount Piperacillin-Tazobactam 3 100 .375 gm In Sodium Chloride 0.9% 100 ml @ 25 mls/hr IVPB Q8HR [facility] Rx# :[id number] Oral 1020 Output: Urine 325 250 0 Other: Voiding Method Bedside Commode Bedside Commode Urinal Urinal # Bowel Movements 1 - Constitutional General appearance: Present: cooperative, no acute distress - Respiratory Details: Lungs sounds diminished on the left. Respirations even, non-labored. Currently on 8 L high flow nasal cannula with oxygen saturation 95% at rest, 90-92% with conversation. Able to achieve 1000 mL on his incentive spirometry. Strong cough. - Cardiovascular Details: S1, S2 present. Regular rate and rhythm, sinus rhythm on telemetry. Palpable peripheral pulses bilaterally. No lower extremity edema present, edema to left upper extremity remains. No calf pain or tenderness noted. SCDs present. - Gastrointestinal Gastrointestinal Comment(s): Abdomen soft, nontender, nondistended. Active bowel sounds present 4 quadrants. Tolerating diet. Positive bowel movement last night. - Genitourinary Genitourinary Comment(s): Patient has voided clear yellow urine. - Integumentary Integumentary Comment(s): Skin is warm and dry with evidence of good perfusion, except left arm which is weeping. Left lateral chest wall incisions well approximated. 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 - Psychiatric Psychiatric: Present: A&O x's 3, appropriate affect, intact judgment & insight - Allied health notes Allied health notes reviewed: nursing - Labs CBC & Chem 7: 11/26/18 04:55 11/26/18 04:55 Labs: Abnormal Lab Results - Last 24 Hours (Table) 11/10/18 11/26/18 11/26/18 Range/Units 12:15 04:55 04:55 WBC 16.8 H (3.8-10.6) k/uL RBC 3.31 L (4.30-5.90) m/uL Hgb 9.6 L (13.0-17.5) gm/dL Hct 30.8 L (39.0-53.0) % BUN 40 H (9-20) mg/dL Glucose 121 H (74-99) mg/dL Crossmatch See Detail Microbiology - Last 24 Hours (Table) 11/21/18 19:21 Blood Culture - Preliminary Blood No Growth after 96 hours 11/21/18 19:29 Blood Culture - Preliminary Blood No Growth after 96 hours 11/22/18 15:10 Gram Stain - Preliminary Sputum Sputum Culture - Preliminary Streptococcus pneumoniae - Imaging and Cardiology Chest x-ray: report reviewed, image reviewed Assessment and Plan Assessment: 1. Left apical lung carcinoma, invasion of chest wall, poorly differentiated non-small cell lung cancer by navigational bronchoscopy, status post left upper lobectomy with EN block chest wall resection of apical tumor including ribs 2 and 3, surgical pathology consistent with poorly differentiated pulmonary adenocarcinoma, stage IIIA 2. Chronic tobacco dependence 3. Chronic obstructive pulmonary disease 4. History of bladder cancer 5. History of prostate cancer 6. Osteoarthritis 7. Left arm weakness consistent with brachial plexopathy 8. Sputum culture positive for streptococcus pneumoniae Plan: 1. Continue to wean O2 as tolerated. Encourage incentive spirometry use 10 times every hour while awake. 2. Bronchodilators, antibiotics per pulmonology. Continue chest physiotherapy. Currently on IV Zosyn, will transition to oral antibiotics once sensitivities are completed which should be today 3. Increase activity, ambulate in hallway. PT/OT following. Needs aggressive therapy for left arm weakness, anticipate recovery from weakness will take time, not expected for full recovery before discharge. 4. Pain control with current medication regimen. 5. Encourage continued smoking cessation. 6. Will monitor daily chest x-rays. 7. Medical management per primary care service. 8. Discharge planning in progress. Anticipate discharge to [facility] per patient/family request once patient able to have oxygen needs weaned further. 9. More recommendations based on patient's progress. Time with Patient: Greater than 30
[2018-11-26] MEDS: IPRATROPIUM-ALBUTEROL 3 ML NEB INHALATION SCH ×4 (08:42→20:34)
[2018-11-26] MEDS: FORMOTEROL FUMARATE 20 MCG/2 ML NEBU INHALATION SCH ×2 (08:42→20:34)
[2018-11-26] MEDS: BUDESONIDE 1 MG/2 ML NEBU INHALATION SCH ×2 (08:42→20:34)
[2018-11-26] MEDS ORDERED: AMOXIC-POT CLAV 875-125MG 1 EACH TAB PO SCH (09:00)
[2018-11-26] MEDS: NICOTINE 21MG/24HR PATCH TRANSDERM SCH (10:52)
[2018-11-26] MEDS: HEPARIN SODIUM,PORCINE 5,000 UNIT/ML 1 ML VIAL SQ SCH ×3 (10:52→23:32)
[2018-11-26] MEDS: PANTOPRAZOLE 40 MG TABLET PO SCH (10:53)
[2018-11-26] MEDS: guaiFENesin 600 MG TABLET.ER PO SCH ×2 (10:53→20:27)
[2018-11-26] MEDS: LEVOFLOXACIN 750 MG TAB PO SCH (10:53)
--- NOTE | 2018-11-26 11:32 | P.PN ---
Subjective Mr. Ferraro is an 82-year-old male who's been diagnosed with poorly differentiated non-small cell lung cancer admitted for left upper lobe lobectomy. Patient had chest wall resection along with second and third rib and lymph node dissection. On 11/23/2018 -patient is sitting up in a recliner by the bedside. He complains of mild difficulty in breathing. He continues to be on high flow oxygen at 15 L. Patient still has his posterior chest tube and Quintero's catheter in place. Patient's epidural has been discontinued yesterday and he is getting Dilaudid for his pain. Patient reports the pain medication does help, but at times he feels some spasms. He is being treated for a UTI with Bactrim. Overall patient seems to be improving. Patient still continues to have swelling of the left upper extremity, it is wrapped in Trino bandage. Doppler done for DVT has been negative. Overnight no active issues reported by nursing staff. Patient has incentive spirometry at the bedside, he is seeing that he is trying his best to get it to 1500 MLS as he is able to do it only upto 1250 mL. 11/24/2018 pt is in the ICU , he is generally weak, but denies chest pain , he has some mild dyspnea. no abdominal pain or nausea or vomiting . vitals are stable , his respiratory rate is 25 per minute. he is saturating 94 % on 15 L high flow oxygen. labs reviewed showing WBC 13.1K. Hb 9.7. Platelets 324. sodium 134. normal potssium and creatinine. normal liver enz. Had brain CT showing possible arachinoid cyst of 2.1 cm in the cerebellum, DDx hematoma or chronic hygroma , neurology consult is called,as per evaluation mostly this is related to surgery. recommended steroid and outpt workup if weakness persists. chest xray : bilateral atelectasis. pt is currently on zosyn. pulmonary critical care team are following the pt closely. 11/25/2018 Patient is lying in bed not in respiratory distress, he remains in the ICU. Patient is lethargic and weak. 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 CT of the brain showed possible arachnoid cyst In the cerebellum. Patient has been followed closely by the cardiothoracic team floor left upper lobe lobectomy and chest wall resection along the second and third ribs with lymph node dissection for his lung cancer. He saturating 94% on 8 L of oxygen via high flow cannula. A breathing rate limiting per minutes, vessel Vitas looks stable. Patient is afebrile. WBC is 14.4 K. BMP reviewed sodium 136, creatinine 1.0. Cultures so far negative for growing bacteria. Chest x-ray showing increased density in the left base, with left hemithorax revealed no pneumothorax. Patient currently on Zosyn 11/26/2018 Patient is more awake today. He is lying comfortable in the incline. He has limited dyspnea but no chest pain. His wound around his left lateral and posterior chest is healing with no signs of infection. He is saturating 93% on 8 L high flow cannula. Vitals stable. WBC 16.8 K. Sputum culture is positive for strep pneumoniae. He is on Levaquin pills. Repeat chest x-ray from today: Normal changes, not exclude pneumonia. Objective - Vital Signs Vital signs: Vital Signs Temp 97.7 F 11/26/18 08:00 Pulse 91 11/26/18 10:00 Resp 18 11/26/18 10:00 BP 135/61 11/26/18 09:00 Pulse Ox 93 L 11/26/18 10:00 Intake & Output 11/25/18 11/26/18 11/26/18 18:59 06:59 18:59 Intake Total 1460 260 320 Output Total 325 250 0 Balance 1135 10 320 Weight 62.4 kg Intake: IV 340 260 80 0.9 240 160 80 Piperacillin-Tazobactam 3 100 100 .375 gm In Sodium Chloride 0.9% 100 ml @ 25 mls/hr IVPB Q8HR [facility] Rx# :[id number] Intake, IV Titration 100 Amount Piperacillin-Tazobactam 3 100 .375 gm In Sodium Chloride 0.9% 100 ml @ 25 mls/hr IVPB Q8HR [facility] Rx# :[id number] Oral 1020 240 Output: Urine 325 250 0 Other: Voiding Method Bedside Commode Bedside Commode Urinal Urinal # Voids 1 # Bowel Movements 1 - Exam -GENERAL: The patient is alert and oriented x3, not in any acute distress. Catechetic and lethargic HEENT: Mild pallor. No icterus CARDIOVASCULAR: S1 and S2 heard. Tachycardia. -PULMONARY: Posterior chest tube in place. No breath sounds on the left side of the chest. Right-sided breath sounds are coarse . ABDOMEN: Soft, nontender, nondistended, normoactive bowel sounds. No palpable organomegaly. Quintero's catheter in place. MUSCULOSKELETAL: No joint swelling or deformity. -EXTREMITIES: Pitting edema of the left upper extremity from elbow to the hand. Bilateral pitting edema bilateral lower extremities up to the knee joints. NEUROLOGICAL: Gross neurological examination did not reveal any focal deficits. SKIN: Skin is fragile - Labs CBC & Chem 7: 11/26/18 04:55 11/26/18 04:55 Labs: Abnormal Lab Results - Last 24 Hours (Table) 11/10/18 11/26/18 11/26/18 Range/Units 12:15 04:55 04:55 WBC 16.8 H (3.8-10.6) k/uL RBC 3.31 L (4.30-5.90) m/uL Hgb 9.6 L (13.0-17.5) gm/dL Hct 30.8 L (39.0-53.0) % BUN 40 H (9-20) mg/dL Glucose 121 H (74-99) mg/dL Crossmatch See Detail Microbiology - Last 24 Hours (Table) 11/22/18 15:10 Gram Stain - Final Sputum Sputum Culture - Final Streptococcus pneumoniae 11/21/18 19:21 Blood Culture - Preliminary Blood No Growth after 96 hours 11/21/18 19:29 Blood Culture - Preliminary Blood No Growth after 96 hours Assessment and Plan Assessment: Status post left upper lobe thoracotomy and resection of second and third ribs Poorly differentiated non-small cell lung carcinoma Chronic obstructive pulmonary disease arachnoid cyst of the cerebellum Heavy nicotine dependence Leukocytosis Plan: this is a pleasant 83 M who presents for lung ca, s/p resection of the left lung lobectomy . continue with antibiotic, continue with surgical team and critical team recommendation. Patient got the left upper extremity Doppler that was negative for any DVT. Blood cultures and sputum cultures - no growth until now. Patient encouraged to use incentive spirometry and continue with breathing treatments. Continue with the current medication regimen. Patient has been started on Zosyn. His pain is under good control with pain medicine. DVT prophylaxis with heparin .Overall prognosis is guarded. Further recommendations to follow depending on t he progress of the patient.
[2018-11-26 12:27] LABS: Glucose,Whole Blood 127 mg/dL (75-99)
[2018-11-26 13:15] VITALS: BMI 20.2
--- NOTE | 2018-11-26 16:57 | P.PN ---
Subjective Progress Note Date: 11/26/18 On 11/26/2018, the patient is doing well. The patient has stage IIIa non-small cell lung cancer/adenocarcinoma and the patient is undergone a left upper lobe resection with resection of the first and is secondary. On today's evaluation, the septic and his emphysema along the left chest area is less. The patient was able to cough a large amount of mucous plug and he is doing adequate pulmonate toileting. He is still on a T-tube oxygen nasal cannula. He was on IV Zosyn. He was found to have strep pneumo. The patient will be switched to oral Levaquin for now. He is afebrile. Chest x-ray shows no evidence of any pneumothorax to left sided chest tube was removed. Left upper extremity is stil l extremely weak and the patient has a brachial plexus injury. No signs of any CVA. No altered mentation. He is tolerating his diet. Pain is under good control for now. No nausea. No vomiting. No abdominal pain. No other significant events. I made recommendations to chest with this patient to a medical surgical floor with remote telemetry. The white cell count from today's at 16.8. Hemoglobin is at 9.6. Renal function is within normal limits. Objective - Vital Signs Vital signs: Vital Signs Temp 97.8 F 11/26/18 16:00 Pulse 80 11/26/18 16:00 Resp 18 11/26/18 16:00 BP 133/58 11/26/18 16:00 Pulse Ox 91 L 11/26/18 16:00 Intake & Output 11/25/18 11/26/18 11/26/18 18:59 06:59 18:59 Intake Total 1460 260 440 Output Total 325 250 0 Balance 1135 10 440 Weight 62.4 kg 62.4 kg Intake: IV 340 260 200 0.9 240 160 200 Piperacillin-Tazobactam 3 100 100 .375 gm In Sodium Chloride 0.9% 100 ml @ 25 mls/hr IVPB Q8HR [facility] Rx# :[id number] Intake, IV Titration 100 Amount Piperacillin-Tazobactam 3 100 .375 gm In Sodium Chloride 0.9% 100 ml @ 25 mls/hr IVPB Q8HR [facility] Rx# :[id number] Oral 1020 240 Output: Urine 325 250 0 Other: Voiding Method Bedside Commode Bedside Commode Bedside Commode Urinal Urinal Urinal # Voids 1 # Bowel Movements 1 - Exam - Constitutional General appearance: Present: cooperative, no acute distress - Respiratory Details: lungs sounds diminished on the left. Respirations even, slightly dyspneic with conversation. The patient has a clear surgical wounds. Chest tubes are out. Breath sounds are diminished in the left lung base compared to the right. - Cardiovascular Details: S1, S2 present. Regular rate and rhythm, sinus rhythm on telemetry. Palpable peripheral pulses bilaterally. No lower extremity edema present, slight edema to left upper extremity remains. No calf pain or tenderness noted. SCDs present. - Gastrointestinal Gastrointestinal Comment(s): abdomen soft, nontender, nondistended. Active bowel sounds present 4 quadrants. Tolerating diet. Negative bowel movement since surgery. - Genitourinary Genitourinary Comment(s): Quintero present draining clear, yellow urine. Output 50-100 mL/h overnight. - Integumentary Integumentary Comment(s): Skin is warm and dry with evidence of good perfusion. Left lateral chest wall incisions well approximated. 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 He has a weak/absent stain remover and he is unable to raise his arm again gravity. As such, the motor function left upper extremities +1/5. - Musculoskeletal Musculoskeletal: Present: generalized weakness - Psychiatric Psychiatric: Present: A&O x's 3, appropriate affect, intact judgment & insight - Labs CBC & Chem 7: 11/26/18 04:55 11/26/18 04:55 Labs: Abnormal Lab Results - Last 24 Hours (Table) 11/26/18 11/26/18 11/26/18 Range/Units 04:55 04:55 12:26 WBC 16.8 H (3.8-10.6) k/uL RBC 3.31 L (4.30-5.90) m/uL Hgb 9.6 L (13.0-17.5) gm/dL Hct 30.8 L (39.0-53.0) % BUN 40 H (9-20) mg/dL Glucose 121 H (74-99) mg/dL POC Glucose (mg/dL) 127 H (75-99) mg/dL Microbiology - Last 24 Hours (Table) 11/22/18 15:10 Gram Stain - Final Sputum Sputum Culture - Final Streptococcus pneumoniae 11/21/18 19:21 Blood Culture - Preliminary Blood No Growth after 96 hours 11/21/18 19:29 Blood Culture - Preliminary Blood No Growth after 96 hours Assessment and Plan Plan: 1 poorly differentiated stage IIIa non-small cell lung cancer in the form of adenocarcinoma. The patient underwent a left upper lobe resection and the patient will undergo a chest wall resection involving resection of the second and the third rib. Patient is postop day #7. The patient has developed a brachial plexopathy and he has significant weakness/paralysis of the left upper extremity which is a postoperative surgical complication. The patient has his chest tubes removed and the patient has a left lower lobe consolidation/pneumonia consistent with pneumococcal pneumonia. The patient is initially treated by Zosyn and currently he is going to be switched to oral Levaquin. The left lower lobe consolidation seems to be improved on today's chest x-ray. There is also diminution of the septic and his emphysema. No evidence of any pneumothorax for now. 2 acute hypoxic respiratory failure, expected outcome of surgery currently on 8 L of oxygen by nasal cannula. 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 Aggressive pulmonary toileting. Deep breathing and use of incentive spirometer. Transfer to the patient to a medical surgical floor with remote telemetry. Adrenal the supportive care. Increased level of activity as tolerated. Wean down the FiO2 as tolerated.
--- NOTE | 2018-11-26 17:31 | P.PN ---
Subjective Progress Note Date: 11/26/18 Patient's son was also present today. Patient denies any changes in his condition. Left arm still weak distally and proximally. It is now in a sling. He tried to walk with a walker, but required assist of 2. Objective - Vital Signs Vital signs: Vital Signs Temp 97.8 F 11/26/18 16:00 Pulse 80 11/26/18 16:00 Resp 18 11/26/18 16:00 BP 133/58 11/26/18 16:00 Pulse Ox 91 L 11/26/18 16:00 Intake & Output 11/25/18 11/26/18 11/26/18 18:59 06:59 18:59 Intake Total 1460 260 440 Output Total 325 250 0 Balance 1135 10 440 Weight 62.4 kg 62.4 kg Intake: IV 340 260 200 0.9 240 160 200 Piperacillin-Tazobactam 3 100 100 .375 gm In Sodium Chloride 0.9% 100 ml @ 25 mls/hr IVPB Q8HR [facility] Rx# :[id number] Intake, IV Titration 100 Amount Piperacillin-Tazobactam 3 100 .375 gm In Sodium Chloride 0.9% 100 ml @ 25 mls/hr IVPB Q8HR [facility] Rx# :[id number] Oral 1020 240 Output: Urine 325 250 0 Other: Voiding Method Bedside Commode Bedside Commode Bedside Commode Urinal Urinal Urinal # Voids 1 # Bowel Movements 1 - Exam Patient is alert and awake, but appears slightly frustrated. Left arm is in a sling. Patient appears stronger in the left arm. He is able to lift his left arm at the deltoid at least slightly below shoulder level. He is able to slightly move his forearm also. Pupils are round and reactive to light, small in size about 3 mm, reacting to 2 mm bilaterally. No Arturo's syndrome. - Labs CBC & Chem 7: 11/26/18 04:55 11/26/18 04:55 Labs: Abnormal Lab Results - Last 24 Hours (Table) 11/26/18 11/26/18 11/26/18 Range/Units 04:55 04:55 12:26 WBC 16.8 H (3.8-10.6) k/uL RBC 3.31 L (4.30-5.90) m/uL Hgb 9.6 L (13.0-17.5) gm/dL Hct 30.8 L (39.0-53.0) % BUN 40 H (9-20) mg/dL Glucose 121 H (74-99) mg/dL POC Glucose (mg/dL) 127 H (75-99) mg/dL Microbiology - Last 24 Hours (Table) 11/22/18 15:10 Gram Stain - Final Sputum Sputum Culture - Final Streptococcus pneumoniae 11/21/18 19:21 Blood Culture - Preliminary Blood No Growth after 96 hours 11/21/18 19:29 Blood Culture - Preliminary Blood No Growth after 96 hours Assessment and Plan Assessment: * 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 This could be possibly traumatic due to stretch or physical (surgical), or inflammatory (postsurgical) in nature. No evidence of metastatic disease noted in the CT of the brain. * Non-small cell lung cancer, newly diagnosed * Tobacco user Plan: Patient left arm appears slightly better as compared to yesterday. We will continue to observe for continued signs of clinical improvement. Symptomatic treatment. Aggressive PT OT. Out of bed to chair. Patient may need a 4 pronged cane for mobility rather than walker at this time. If the weakness of left upper extremity persist beyond 4-6 weeks, then will need EMG and nerve conduction of left upper extremity. Corticosteroids at this time were deemed to have more risks than benefits. Discussed with patient's son in detail.
[2018-11-26] MEDS: SENNOSIDES-DOCUSATE SODIUM 1 EACH TAB PO SCH (20:27)
[2018-11-26] MEDS: DOXAZOSIN 4 MG TAB PO SCH (20:27)
[2018-11-27 05:38] LABS: HCT 29.5 % (39.0-53.0); HGB 9.1 gm/dL (13.0-17.5); Hypochromasia Slight; MCH 28.5 pg (25.0-35.0); MCHC 30.8 g/dL (31.0-37.0); MCV 92.7 fL (80.0-100.0); Mean Platelet Volume 6.9; Platelet Count 457 k/uL (150-450); RBC 3.19 m/uL (4.30-5.90); RDW 15.3 % (11.5-15.5); WBC 12.6 k/uL (3.8-10.6)
[2018-11-27 05:49] LABS: Anion Gap 2 mmol/L; Blood Urea Nitrogen 36 mg/dL (9-20); Calcium 8.6 mg/dL (8.4-10.2); Carbon Dioxide 30 mmol/L (22-30); Chloride 107 mmol/L (98-107); Glucose 94 mg/dL (74-99); Potassium 4.7 mmol/L (3.5-5.1); Sodium 139 mmol/L (137-145)
[2018-11-27] MEDS: FORMOTEROL FUMARATE 20 MCG/2 ML NEBU INHALATION SCH ×2 (08:31→19:33)
[2018-11-27] MEDS: BUDESONIDE 1 MG/2 ML NEBU INHALATION SCH ×2 (08:31→19:33)
[2018-11-27] MEDS: IPRATROPIUM-ALBUTEROL 3 ML NEB INHALATION SCH ×4 (08:31→19:33)
--- NOTE | 2018-11-27 08:45 | XR ---
EXAMINATION TYPE: XR chest 2V DATE OF EXAM: 11/27/2018 COMPARISON: 11/26/2018 TECHNIQUE: PA and lateral views submitted. HISTORY: Postop FINDINGS: Subcutaneous emphysema is noted and there again appears to be an area of consolidation and pleural ef fusion on the left with possible air-fluid level. Extensive postsurgical change with thoracic cavity deformity is seen. There is areas of perihilar consolidation. Chronic appearing bilateral interstitia l prominence suggestive COPD with interstitial pulmonary fibrosis. IMPRESSION: 1. Stable postoperative change with stable pleural-parenchymal changes on the left postoperatively.
--- NOTE | 2018-11-27 09:00 | P.PN ---
Subjective Progress Note Date: 11/27/18 Principal diagnosis: Left apical lung carcinoma, invasion of chest wall, poorly differentiated non- small cell lung cancer diagnosed by navigational bronchoscopy on 10/08/2018. Previous medical history of chronic tobacco abuse, COPD, bladder cancer, prostate cancer, BPH, osteoarthritis. POD #8 left thoracoscopic with attempted robotic left upper lobectomy converted to open with EN bloc chest wall resection of the apical tumor including ribs 2 and 3. Final pathology results demonstrate poorly differentiated non-small cell carcinoma consistent with poorly differentiated pulmonary adenocarcinoma, invading the parietal pleura and chest wall, margins negative, with no regional lymph node involvement or distant metastasis, consistent with stage IIIA. Postoperative left arm weakness consistent with brachial plexopathy, expected outcome given the the proximity of the brachial plexus to the surgical resection site. Sputum culture positive for streptococcus pneumoniae, unexpected outcome, currently on antibiotics Patient's currently sitting up in a recliner in no acute distress. He denies pain, shortness of breath although he does appear visibly dyspneic with conver sation. O2 requirements being weaned down, currently on 5 L nasal cannula. Sputum culture positive for strep pneumonia, currently on Levaquin. Left arm remains weak, patient able to move his wrist and wiggle his fingers minimally. Objective - Vital Signs Vital signs: Vital Signs Temp 97.9 F 11/27/18 04:00 Pulse 72 11/27/18 06:00 Resp 12 11/27/18 06:00 BP 138/70 11/27/18 06:00 Pulse Ox 92 L 11/27/18 06:00 Intake & Output 11/26/18 11/27/18 11/27/18 18:59 06:59 18:59 Intake Total 1220 430 Output Total 200 550 Balance 1020 -120 Weight 62.4 kg 65.9 kg Intake: IV 260 180 0.9 260 180 Oral 960 250 Output: Urine 200 550 Other: Voiding Method Bedside Commode Bedside Commode Urinal Urinal # Voids 1 1 # Bowel Movements 1 - Constitutional General appearance: Present: cooperative, no acute distress - Respiratory Details: Lungs sounds diminished on the left. Respirations even, non-labored. Currently on 5 L high flow nasal cannula with oxygen saturation 89%. Able to achieve 1250 mL on his incentive spirometry. Strong cough. - Cardiovascular Details: S1, S2 present. Regular rate and rhythm, sinus rhythm on telemetry. Palpable peripheral pulses bilaterally. No lower extremity edema present, edema to left upper extremity remains. No calf pain or tenderness noted. SCDs present. - Gastrointestinal Gastrointestinal Comment(s): Abdomen soft, nontender, nondistended. Active bowel sounds present 4 quadrants. Tolerating diet. Positive bowel movement. - Genitourinary Genitourinary Comment(s): Patient continues to void clear, yellow urine. - Integumentary Integumentary Comment(s): Skin is warm and dry with evidence of good perfusion, except left arm which is weeping. Left lateral chest wall incisions well approximated. 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 - Psychiatric Psychiatric: Present: A&O x's 3, appropriate affect - Allied health notes Allied health notes reviewed: nursing - Labs CBC & Chem 7: 11/27/18 04:27 11/27/18 04:27 Labs: Abnormal Lab Results - Last 24 Hours (Table) 11/26/18 11/27/18 11/27/18 Range/Units 12:26 04:27 04:27 WBC 12.6 H (3.8-10.6) k/uL RBC 3.19 L (4.30-5.90) m/uL Hgb 9.1 L (13.0-17.5) gm/dL Hct 29.5 L (39.0-53.0) % MCHC 30.8 L (31.0-37.0) g/dL Plt Count 457 H (150-450) k/uL BUN 36 H (9-20) mg/dL POC Glucose (mg/dL) 127 H (75-99) mg/dL Microbiology - Last 24 Hours (Table) 11/21/18 19:21 Blood Culture - Preliminary Blood No Growth after 120 hours 11/21/18 19:29 Blood Culture - Preliminary Blood No Growth after 120 hours 11/22/18 15:10 Gram Stain - Final Sputum Sputum Culture - Final Streptococcus pneumoniae - Imaging and Cardiology Chest x-ray: report reviewed, image reviewed Assessment and Plan Assessment: 1. Left apical lung carcinoma, invasion of chest wall, poorly differentiated non-small cell lung cancer by navigational bronchoscopy, status post left upper lobectomy with EN block chest wall resection of apical tumor including ribs 2 and 3, surgical pathology consistent with poorly differentiated pulmonary adenocarcinoma, stage IIIA 2. Chronic tobacco dependence 3. Chronic obstructive pulmonary disease 4. History of bladder cancer 5. History of prostate cancer 6. Osteoarthritis 7. Left arm weakness consistent with brachial plexopathy 8. Sputum culture positive for streptococcus pneumoniae Plan: 1. Continue to wean O2 as tolerated. Encourage incentive spirometry use 10 times every hour while awake. 2. Bronchodilators, antibiotics per pulmonology. Continue chest physiotherapy. Antibiotics switched to Levaquin. 3. Increase activity, ambulate in hallway. PT/OT following. Needs aggressive therapy for left arm weakness, anticipate recovery from weakness will take time, not expected for full recovery before discharge. 4. Pain control with current medication regimen. 5. Encourage continued smoking cessation. 6. Will monitor daily chest x-rays. 7. Medical management per primary care service. 8. Discharge planning in progress. Anticipate discharge to [facility] per patient/family request in the next 24-48 hours. 9. More recommendations based on patient's progress. Time with Patient: Greater than 30
[2018-11-27] MEDS: HEPARIN SODIUM,PORCINE 5,000 UNIT/ML 1 ML VIAL SQ SCH ×3 (09:48→23:09)
[2018-11-27] MEDS: PANTOPRAZOLE 40 MG TABLET PO SCH (09:48)
[2018-11-27] MEDS: LEVOFLOXACIN 750 MG TAB PO SCH (09:49)
[2018-11-27] MEDS: NICOTINE 21MG/24HR PATCH TRANSDERM SCH (09:49)
[2018-11-27] MEDS: guaiFENesin 600 MG TABLET.ER PO SCH ×2 (09:55→20:38)
--- NOTE | 2018-11-27 10:33 | P.PN ---
Subjective Progress Note Date: 11/27/18 Patient's son was also present today. Patient at present is getting PT OT session, was walking in the hallway. Patient's left arm is slightly better today, as per patient's son and the physical therapist. Patient at present is trying to move and walk with a walker, with an bid writer on the left side to adjust for the arm. Patient needed assist of 2. Patient denies any changes in his condition. Left arm still weak distally and proximally, but slightly better. It is now in a sling. Objective - Vital Signs Vital signs: Vital Signs Temp 97.9 F 11/27/18 04:00 Pulse 86 11/27/18 08:57 Resp 12 11/27/18 06:00 BP 138/70 11/27/18 06:00 Pulse Ox 92 L 11/27/18 06:00 Intake & Output 11/26/18 11/27/18 11/27/18 18:59 06:59 18:59 Intake Total 1220 430 Output Total 200 550 Balance 1020 -120 Weight 62.4 kg 65.9 kg Intake: IV 260 180 0.9 260 180 Oral 960 250 Output: Urine 200 550 Other: Voiding Method Bedside Commode Bedside Commode Urinal Urinal # Voids 1 1 # Bowel Movements 1 - Exam Patient is an elderly male, appears somewhat sick, fragile. Patient is postoperative state. Patient appears generalized weakness, besides his severe left arm weakness proximally and externally. Left arm is in a sling. Patient able to walk slightly better with his walker, grabbing onto the right side with the hand, and placing left forearm on the bid writer to adjust for his arm weakness. - Labs CBC & Chem 7: 11/27/18 04:27 11/27/18 04:27 Labs: Abnormal Lab Results - Last 24 Hours (Table) 11/26/18 11/27/18 11/27/18 Range/Units 12:26 04:27 04:27 WBC 12.6 H (3.8-10.6) k/uL RBC 3.19 L (4.30-5.90) m/uL Hgb 9.1 L (13.0-17.5) gm/dL Hct 29.5 L (39.0-53.0) % MCHC 30.8 L (31.0-37.0) g/dL Plt Count 457 H (150-450) k/uL BUN 36 H (9-20) mg/dL POC Glucose (mg/dL) 127 H (75-99) mg/dL Microbiology - Last 24 Hours (Table) 11/21/18 19:21 Blood Culture - Preliminary Blood No Growth after 120 hours 11/21/18 19:29 Blood Culture - Preliminary Blood No Growth after 120 hours 11/22/18 15:10 Gram Stain - Final Sputum Sputum Culture - Final Streptococcus pneumoniae Assessment and Plan Assessment: * 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 This could be possibly traumatic due to stretch or physical injury (surgical), or inflammatory (postsurgical) in nature. No evidence of metastatic disease noted in the CT of the brain. * Non-small cell lung cancer, newly diagnosed * Tobacco user Plan: Patient left arm appears slightly better as compared to yesterday. We will continue to observe for continued signs of clinical improvement. Symptomatic treatment. Aggressive PT OT. Out of bed to chair. If the weakness of left upper extremity persist beyond 4-6 weeks, then will need EMG and nerve conduction of left upper extremity. Corticosteroids at this time were deemed to have more risks than benefits. Discussed with patient's son and Dr Copeland in detail.
--- NOTE | 2018-11-27 12:49 | P.PN ---
Subjective Mr. Ferraro is an 82-year-old male who's been diagnosed with poorly differentiated non-small cell lung cancer admitted for left upper lobe lobectomy. Patient had chest wall resection along with second and third rib and lymph node dissection. On 11/23/2018 -patient is sitting up in a recliner by the bedside. He complains of mild difficulty in breathing. He continues to be on high flow oxygen at 15 L. Patient still has his posterior chest tube and Quintero's catheter in place. Patient's epidural has been discontinued yesterday and he is getting Dilaudid for his pain. Patient reports the pain medication does help, but at times he feels some spasms. He is being treated for a UTI with Bactrim. Overall patient seems to be improving. Patient still continues to have swelling of the left upper extremity, it is wrapped in Trino bandage. Doppler done for DVT has been negative. Overnight no active issues reported by nursing staff. Patient has incentive spirometry at the bedside, he is seeing that he is trying his best to get it to 1500 MLS as he is able to do it only upto 1250 mL. 11/24/2018 pt is in the ICU , he is generally weak, but denies chest pain , he has some mild dyspnea. no abdominal pain or nausea or vomiting . vitals are stable , his respiratory rate is 25 per minute. he is saturating 94 % on 15 L high flow oxygen. labs reviewed showing WBC 13.1K. Hb 9.7. Platelets 324. sodium 134. normal potssium and creatinine. normal liver enz. Had brain CT showing possible arachinoid cyst of 2.1 cm in the cerebellum, DDx hematoma or chronic hygroma , neurology consult is called,as per evaluation mostly this is related to surgery. recommended steroid and outpt workup if weakness persists. chest xray : bilateral atelectasis. pt is currently on zosyn. pulmonary critical care team are following the pt closely. 11/25/2018 Patient is lying in bed not in respiratory distress, he remains in the ICU. Patient is lethargic and weak. 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 CT of the brain showed possible arachnoid cyst In the cerebellum. Patient has been followed closely by the cardiothoracic team floor left upper lobe lobectomy and chest wall resection along the second and third ribs with lymph node dissection for his lung cancer. He saturating 94% on 8 L of oxygen via high flow cannula. A breathing rate limiting per minutes, vessel Vitas looks stable. Patient is afebrile. WBC is 14.4 K. BMP reviewed sodium 136, creatinine 1.0. Cultures so far negative for growing bacteria. Chest x-ray showing increased density in the left base, with left hemithorax revealed no pneumothorax. Patient currently on Zosyn 11/26/2018 Patient is more awake today. He is lying comfortable in the incline. He has limited dyspnea but no chest pain. His wound around his left lateral and posterior chest is healing with no signs of infection. He is saturating 93% on 8 L high flow cannula. Vitals stable. WBC 16.8 K. Sputum culture is positive for strep pneumoniae. He is on Levaquin pills. Repeat chest x-ray from today: Normal changes, not exclude pneumonia. 11/27/2018 Patient today feels better. He was sitting in the chair and with this disco mfort, he is still tachypneic. Wound on the left upper lateral chest is healing. His left upper extremity is moving better today and neurology team are following. Vitals are stable. He is on 6 L of oxygen via high flow cannula and saturating 92%. WBC 12.6 K, hemoglobin 9.1. BMP was unremarkable. He is currently on levofloxacin. Also Toradol was added. Neurologist recommended EMG and nerve conduction study in 4-6 weeks in his left upper extremity if no improvement. Objective - Vital Signs Vital signs: Vital Signs Temp 98.1 F 11/27/18 08:00 Pulse 75 11/27/18 12:10 Resp 16 11/27/18 08:00 BP 111/51 11/27/18 08:00 Pulse Ox 92 L 11/27/18 08:00 Intake & Output 11/26/18 11/27/18 11/27/18 18:59 06:59 18:59 Intake Total 1220 430 Output Total 200 550 Balance 1020 -120 Weight 62.4 kg 65.9 kg Intake: IV 260 180 0.9 260 180 Oral 960 250 Output: Urine 200 550 Other: Voiding Method Bedside Commode Bedside Commode Urinal Urinal Urinal # Voids 1 1 # Bowel Movements 1 2 - Exam -GENERAL: The patient is alert and oriented x3, not in any acute distress. Catechetic and lethargic HEENT: Mild pallor. No icterus CARDIOVASCULAR: S1 and S2 heard. Tachycardia. -PULMONARY: Posterior chest tube in place. No breath sounds on the left side of the chest. Right-sided breath sounds are coarse . ABDOMEN: Soft, nontender, nondistended, normoactive bowel sounds. No palpable organomegaly. Quintero's catheter in place. MUSCULOSKELETAL: No joint swelling or deformity. -EXTREMITIES: Pitting edema of the left upper extremity from elbow to the hand. Bilateral pitting edema bilateral lower extremities up to the knee joints. NEUROLOGICAL: Gross neurological examination did not reveal any focal deficits. SKIN: Skin is fragile - Labs CBC & Chem 7: 11/27/18 04:27 11/27/18 04:27 Labs: Abnormal Lab Results - Last 24 Hours (Table) 11/27/18 11/27/18 Range/Units 04:27 04:27 WBC 12.6 H (3.8-10.6) k/uL RBC 3.19 L (4.30-5.90) m/uL Hgb 9.1 L (13.0-17.5) gm/dL Hct 29.5 L (39.0-53.0) % MCHC 30.8 L (31.0-37.0) g/dL Plt Count 457 H (150-450) k/uL BUN 36 H (9-20) mg/dL Microbiology - Last 24 Hours (Table) 11/21/18 19:21 Blood Culture - Preliminary Blood No Growth after 120 hours 11/21/18 19:29 Blood Culture - Preliminary Blood No Growth after 120 hours Assessment and Plan Assessment: Status post left upper lobe thoracotomy and resection of second and third ribs Poorly differentiated non-small cell lung carcinoma Chronic obstructive pulmonary disease arachnoid cyst of the cerebellum Heavy nicotine dependence Leukocytosis Plan: this is a pleasant 83 M who presents for lung ca, s/p resection of the left lung lobectomy . continue with antibiotic, continue with surgical team and critical team recommendation. Patient got the left upper extremity Doppler that was negative for any DVT. Blood cultures and sputum cultures - no growth until now. Patient encouraged to use incentive spirometry and continue with breathing treatments. Continue with the current medication regimen. Patient has been started on Zosyn. His pain is under good control with pain medicine. DVT prophylaxis with heparin .Overall prognosis is guarded. Further recommendations to follow depending on the progress of the patient.
--- NOTE | 2018-11-27 13:52 | P.PN ---
Subjective Progress Note Date: 11/27/18 On today's evaluation of 11/27/2018, the patient is working with physical therapy and he is doing limited amount of movement and activity. He gets very tired and weak upon walking approximately 20-30 feet. Nevertheless his we'll continue with efforts to do that. The patient is currently on oxygen at 6 L of oxygen by nasal cannula. His cough is less congested. Chest x-ray shows subcutaneous emphysema on the left and there is a consolidation of the left lower lobe along with postsurgical changes and there is also a left lower lobe pleural effusion which raises the concern of an underlying pneumothorax knowing that the findings today are more consistent with an air-fluid level. In any rate, we'll likely monitor this abnormality. The patient is afebrile. The patient is hemodynamically stable. Renal function is normal. His white cell count is at 12.6 and the patient is on oral Levaquin. He has been diagnosed having stage IIIa non-small cell lung cancer in the form of adenocarcinoma. No altered mentation. No other significant events overnight. His cardiac rhythm is still sinus rhythm. Objective - Vital Signs Vital signs: Vital Signs Temp 98.1 F 11/27/18 08:00 Pulse 75 11/27/18 12:10 Resp 16 11/27/18 08:00 BP 111/51 11/27/18 08:00 Pulse Ox 92 L 11/27/18 08:00 Intake & Output 11/26/18 11/27/18 11/27/18 18:59 06:59 18:59 Intake Total 1220 430 Output Total 200 550 Balance 1020 -120 Weight 62.4 kg 65.9 kg Intake: IV 260 180 0.9 260 180 Oral 960 250 Output: Urine 200 550 Other: Voiding Method Bedside Commode Bedside Commode Urinal Urinal Urinal # Voids 1 1 # Bowel Movements 1 2 - Exam - Constitutional General appearance: Present: cooperative, no acute distress - Respiratory Details: lungs sounds diminished on the left. Respirations even, slightly dyspneic with conversation. The patient has a clear surgical wounds. Chest tubes are out. Breath sounds are diminished in the left lung base compared to the right. - Cardiovascular Details: S1, S2 present. Regular rate and rhythm, sinus rhythm on telemetry. Palpable peripheral pulses bilaterally. No lower extremity edema present, slight edema to left upper extremity remains. No calf pain or tenderness noted. SCDs present. - Gastrointestinal Gastrointestinal Comment(s): abdomen soft, nontender, nondistended. Active bowel sounds present 4 quadrants. Tolerating diet. Negative bowel movement since surgery. - Genitourinary Genitourinary Comment(s): Quintero present draining clear, yellow urine. Output 50-100 mL/h overnight. - Integumentary Integumentary Comment(s): Skin is warm and dry with evidence of good perfusion. Left lateral chest wall incisions well approximated. 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 He has a weak/absent reconsignment clerk and he is unable to raise his arm again gravity. As such, the motor function left upper extremities +1/5. No significant improvement or change in the motor function of the left upper extremity which remains profoundly weak. He is wearing a sling. - Musculoskeletal Musculoskeletal: Present: generalized weakness - Psychiatric Psychiatric: Present: A&O x's 3, appropriate affect, intact judgment & insight - Labs CBC & Chem 7: 11/27/18 04:27 11/27/18 04:27 Labs: Abnormal Lab Results - Last 24 Hours (Table) 11/27/18 11/27/18 Range/Units 04:27 04:27 WBC 12.6 H (3.8-10.6) k/uL RBC 3.19 L (4.30-5.90) m/uL Hgb 9.1 L (13.0-17.5) gm/dL Hct 29.5 L (39.0-53.0) % MCHC 30.8 L (31.0-37.0) g/dL Plt Count 457 H (150-450) k/uL BUN 36 H (9-20) mg/dL Microbiology - Last 24 Hours (Table) 11/21/18 19:21 Blood Culture - Preliminary Blood No Growth after 120 hours 11/21/18 19:29 Blood Culture - Preliminary Blood No Growth after 120 hours Assessment and Plan Plan: 1 poorly differentiated stage IIIa non-small cell lung cancer in the form of adenocarcinoma. The patient underwent a left upper lobe resection and the patient will undergo a chest wall resection involving resection of the second and the third rib. Patient is postop day #8. The patient has developed a brachial plexopathy and he has significant weakness/paralysis of the left upper extremity which is a postoperative surgical complication. The patient has his chest tubes removed and the patient has a left lower lobe conso lidation/pneumonia consistent with pneumococcal pneumonia. The patient is initially treated by Zosyn and currently he is going to be switched to oral Levaquin. The patient is profoundly weak. His participating in physical therapy. He is doing limited amount of movement and activity and walk and today in the ICU. Left upper extremity remains quite weak and unchanged and examination compared to yesterday. Chest x-ray showing development of a left- sided pleural effusion and there is some improvement in left lower lobe consolidation. 2 acute hypoxic respiratory failure, expected outcome of surgery currently on 6 L of oxygen by nasal cannula. Patient has left lower lobe pneumonia with strep pneumo 3 COPD 4 streptococcal left lower lobe pneumonia 5 history of bladder cancer 6 history of prostate cancer 7 smoker 8 brachial plexopathy with left upper extremity paralysis Plan Continue oral Levaquin. Continue bronchodilators. Incentive spirometer. Daily walking. Physical therapy regarding left upper extremity weakness. Wean down FiO2 to 4 L per minute nasal cannula. We'll continue to follow. He can be transferred to stepdown.
--- NOTE | 2018-11-27 17:05 | P.PN ---
Subjective - today the patient says that she's feeling weak. She is short of breath and is coughing - She does not complain of any chest pain racing heart - He does not complain of any abdominal pain, nausea and vomiting Objective - Vital Signs Vital signs: Vital Signs Temp 97.8 F 11/27/18 16:00 Pulse 75 11/27/18 16:11 Resp 19 11/27/18 16:00 BP 129/59 11/27/18 16:00 Pulse Ox 79 L 11/27/18 16:00 Intake & Output 11/26/18 11/27/18 11/27/18 18:59 06:59 18:59 Intake Total 1220 430 Output Total 200 550 400 Balance 1020 -120 -400 Weight 62.4 kg 65.9 kg Intake: IV 260 180 0.9 260 180 Oral 960 250 Output: Urine 200 550 400 Other: Voiding Method Bedside Commode Bedside Commode Urinal Urinal Urinal # Voids 1 1 1 # Bowel Movements 1 1 - Exam On exam, alert and oriented x3. HEENT: Conjunctivae normal. eyes normal. NECK: No JVD. No thyroid enlargement. No LNs CARDIOVASCULAR: S1-S2 positive RESPIRATION: is having wheezing bilaterally ABDOMEN: Soft, nontender . No guarding. no masses palpable. No ascites, No hepatosplenomegaly.Bowel sounds heard. LEGS: No edema. no swelling NERVOUS SYSTEM: Cranial N 2-12 grossly normal. Moves all 4 limbs. No focal deficits. No sensory deficit. No signs of cerebellar dysfucntion. Skin: no ulcer no rash - Labs CBC & Chem 7: 11/27/18 04:27 11/27/18 04:27 Labs: Abnormal Lab Results - Last 24 Hours (Table) 11/27/18 11/27/18 Range/Units 04:27 04:27 WBC 12.6 H (3.8-10.6) k/uL RBC 3.19 L (4.30-5.90) m/uL Hgb 9.1 L (13.0-17.5) gm/dL Hct 29.5 L (39.0-53.0) % MCHC 30.8 L (31.0-37.0) g/dL Plt Count 457 H (150-450) k/uL BUN 36 H (9-20) mg/dL Microbiology - Last 24 Hours (Table) 11/21/18 19:21 Blood Culture - Preliminary Blood No Growth after 120 hours 11/21/18 19:29 Blood Culture - Preliminary Blood No Growth after 120 hours Assessment and Plan Assessment: - acute STEMI status post cath and stenting of the right RCA - Acute COPD exacerbation - Acute respiratory failure secondary to above - Diabetes mellitus - anemia - history of recurrent DVTs patient supposedly and Coumadin - Hypertension - Hyperlipidemia plan - Patient in ICU. - Solu-Medrol increased today by pulmonology/critical care team - Continue breathing treatments - Need to restart Coumadin when cleared by cardiology - Continue rest of the medical care - We'll continue to monitor Time with Patient: Greater than 30
[2018-11-27] MEDS: DOXAZOSIN 4 MG TAB PO SCH (20:38)
[2018-11-27] MEDS: SENNOSIDES-DOCUSATE SODIUM 1 EACH TAB PO SCH (20:38)
[2018-11-28 02:00] VITALS: RESP 20
[2018-11-28 06:19] LABS: HCT 29.2 % (39.0-53.0); HGB 9.2 gm/dL (13.0-17.5); Hypochromasia Slight; MCH 29.8 pg (25.0-35.0); MCHC 31.6 g/dL (31.0-37.0); MCV 94.2 fL (80.0-100.0); Mean Platelet Volume 7.4; Platelet Count 410 k/uL (150-450); RDW 15.6 % (11.5-15.5); WBC 10.8 k/uL (3.8-10.6)
[2018-11-28] MEDS: PANTOPRAZOLE 40 MG TABLET PO SCH (06:30)
[2018-11-28 06:31] LABS: Anion Gap 0 mmol/L; Blood Urea Nitrogen 34 mg/dL (9-20); Calcium 8.7 mg/dL (8.4-10.2); Carbon Dioxide 32 mmol/L (22-30); Chloride 106 mmol/L (98-107); Glucose 92 mg/dL (74-99); Potassium 4.4 mmol/L (3.5-5.1); Sodium 138 mmol/L (137-145)
[2018-11-28] MEDS: FORMOTEROL FUMARATE 20 MCG/2 ML NEBU INHALATION SCH (10:05)
[2018-11-28] MEDS: BUDESONIDE 1 MG/2 ML NEBU INHALATION SCH (10:05)
[2018-11-28] MEDS: IPRATROPIUM-ALBUTEROL 3 ML NEB INHALATION SCH ×2 (10:06→12:12)
--- NOTE | 2018-11-28 10:07 | P.DS ---
Providers Date of admission: 11/19/18 05:47 Expected date of discharge: 11/28/18 Attending physician: Lloyd Sexton Consults: 11/20/18 12:10 Consult Physician Routine Consulting Provider: Gamaliel Mcgee Consult Reason/Comments: Pulmonary Management Do you want consulting provider notified?: Yes 11/20/18 12:11 Consult Physician Routine Consulting Provider: Nataliia Guzmán Consult Reason/Comments: medical Managenment Do you want consulting provider notified?: Yes 11/24/18 08:26 Consult Physician Routine Consulting Provider: Chidi Quintero Consult Reason/Comments: left arm weakness Do you want consulting provider notified?: Yes Primary care physician: [facility] Hospital Course: FINAL DIAGNOSIS: 1. Left apical lung carcinoma, invasion of the chest wall, final pathology demonstrates poorly differentiated non-small cell carcinoma consistent with poorly differentiated pulmonary adenocarcinoma, stage IIIa 2. History of chronic tobacco abuse 3. COPD 4. History of bladder cancer 5. History of prostate cancer 6. Benign prostatic hypertrophy 7. Osteoarthritis 8. Postoperative left arm weakness consistent with brachial plexopathy 9. Sputum culture positive for Streptococcus pneumoniae PRINCIPAL PROCEDURE: 1. Left thoracoscopic attempted robotic left upper lobectomy converted to open with EN bloc chest wall resection of the apical tumor including ribs 2 and 3 HISTORY OF PRESENT ILLNESS: This is an 83-year-old active gentleman [facility] [place] [facility]. Mcgee on an outpatient basis. He incurred an orthopedic injury to his left shoulder in June 2018 while throwing a 4 gallon buckets of beets out on his property to entice deer. The injury consisted of muscle and ligamentous strain to the posterior left shoulder. He was treated at the [facility] with Nsaid therapy, but the pain persisted and eventually he underwent a chest x-ray which demonstrated a large left upper lobe mass. Computed tomography scan confirmed the presence of a 6 cm left upper lobe mass which was adjacent to but not obviously invading the chest wall at the apex of the left upper lobe. PET scan confirmed presence of the mass confined to the left upper lobe without evidence of metastasis. The patient was referred to Dr. Sexton from cardiothoracic surgery. He was recommended to undergo robotic lobectomy with possible open thoracotomy. The usual perioperative course was discussed in detail with the patient and his family, all risks and benefits were explained, all questions were answered, and consent was obtained to proceed with surgery. Surgery was scheduled at the earliest possible convenience for the patient. HOSPITAL COURSE: The patient was brought to the hospital on 11/19/2018, taken to the preoperative area, prepared in the usual fashion, and subsequently taken to the operating room where Dr. Sexton performed left thoracoscopic attempted robotic left upper lobectomy converted to open with EN bloc chest wall resection of the apical tumor including ribs 2 and 3. Upon completion of surgery the patient was extubated but transferred to the intensive care unit for closer monitoring. He did experience some difficulty breathing requiring higher oxygen level, sputum culture was taken and was positive for Streptococcus pneumoniae, antibiotics were initiated with improvement in oxygenation. In addition, he developed postoperative left arm weakness, computed tomography scan of the brain was completed to rule out stroke, neurology was consulted and agreed with Dr. Sexton that the arm weakness was consistent with brachial plexopathy, and physical and occupational therapy continue to work with the patient. Chest tube was discontinued when appropriate, and he was transferred to [facility] cardiac step down unit for further monitoring and rehabilitation. His oxygen was titrated down to 4 L nasal cannula, he continued to work with physical and occupational therapy, he was tolerating oral diet, his pain was controlled, and he was ready to be discharged to [facility] for continued physical and occupational rehabilitation on postoperative day #9. He received written and verbal instruction regarding his medications, activity restrictions, signs and symptoms requiring physician notification, and follow-up appointments. COMPLICATIONS: The patient experienced postoperative left arm weakness and positive sputum culture which were treated accordingly. Of note, the left arm weakness is expected to take some time to heal, and he is recommended to follow- up with neurology in 4-6 weeks if the weakness persists for EMG and nerve conduction. Patient Condition at Discharge: Stable Plan - Discharge Summary Discharge Rx Participant: Yes New Discharge Prescriptions: New Bisacodyl [Dulcolax] 10 mg RECTAL DAILY PRN supp PRN Reason: Constipation Ipratropium-Albuterol Nebulize [Duoneb 0.5 mg-3 mg/3 ml Soln] 3 ml INHALATION RT-QID ampul.neb Ipratropium-Albuterol Nebulize [Duoneb 0.5 mg-3 mg/3 ml Soln] 3 ml INHALATION RT-Q1H PRN ampul.neb PRN Reason: Shortness Of Breath Or Wheezing Heparin Sodium,Porcine [Heparin Sodium] 5,000 unit SQ Q8HR vial Levofloxacin [Levaquin] 750 mg PO DAILY 5 Days tab Magnesium Hydroxide [Milk of Magnesia Concentrate] 2,400 mg PO DAILY PRN ml PRN Reason: Constipation guaiFENesin [Mucinex] 1,200 mg PO Q12HR tablet.er Formoterol Fumarate [Perforomist] 20 mcg INHALATION RT-BID nebu Pantoprazole [Protonix] 40 mg PO AC-BRKFST tablet. Budesonide [Pulmicort] 1 mg INHALATION RT-BID nebu Sennosides-Docusate Sodium [Senokot-S] 2 each PO DAILY@2100 PRN tab PRN Reason: Constipation Acetaminophen Tab [Tylenol] 1,000 mg PO Q6HR PRN tab PRN Reason: Fever and/ or Mild Pain Continue Terazosin HCl [Hytrin] 10 mg PO HS Nicotine 21Mg/24Hr Patch [Habitrol] 1 patch TRANSDERM DAILY Discontinued Acetaminophen [Tylenol] 500 mg PO Q4-6H PRN PRN Reason: Pain Discharge Medication List Terazosin HCl [Hytrin] 10 mg PO HS 02/02/15 [History] Nicotine 21Mg/24Hr Patch [Habitrol] 1 patch TRANSDERM DAILY 11/16/18 [History] Acetaminophen Tab [Tylenol] 1,000 mg PO Q6HR PRN tab 11/28/18 [Rx] Bisacodyl [Dulcolax] 10 mg RECTAL DAILY PRN supp 11/28/18 [Rx] Budesonide [Pulmicort] 1 mg INHALATION RT-BID nebu 11/28/18 [Rx] Formoterol Fumarate [Perforomist] 20 mcg INHALATION RT-BID nebu 11/28/18 [Rx] Heparin Sodium,Porcine [Heparin Sodium] 5,000 unit SQ Q8HR vial 11/28/18 [Rx] Ipratropium-Albuterol Nebulize [Duoneb 0.5 mg-3 mg/3 ml Soln] 3 ml INHALATION RT-Q1H PRN ampul.neb 11/28/18 [Rx] Ipratropium-Albuterol Nebulize [Duoneb 0.5 mg-3 mg/3 ml Soln] 3 ml INHALATION RT-QID ampul.neb 11/28/18 [Rx] Levofloxacin [Levaquin] 750 mg PO DAILY 5 Days tab 11/28/18 [Rx] Magnesium Hydroxide [Milk of Magnesia Concentrate] 2,400 mg PO DAILY PRN ml 11/28/18 [Rx] Pantoprazole [Protonix] 40 mg PO AC-BRKFST tablet. 11/28/18 [Rx] Sennosides-Docusate Sodium [Senokot-S] 2 each PO DAILY@2100 PRN tab 11/28/18 [R x] guaiFENesin [Mucinex] 1,200 mg PO Q12HR tablet.er 11/28/18 [Rx] Follow up Appointment(s)/Referral(s): Gamaliel Mcgee DO [Doctor of Osteopathic Medicine] - 1 Week (please make appointment, office closed for the weekend) Lloyd Sexton MD [STAFF PHYSICIAN] - 1 Week (please make appointment, office closed for the weekend) [facility],Clinic [Primary Care Provider] - 1 Week (upon discharge from rehab) Ambulatory/Diagnostic Orders: Miscellaneous Radiology Order [RAD.AMB] Time Frame: 3 Days, Facility: [facility], Location: [facility] Activity/Diet/Wound Care/Special Instructions: DISCHARGE INSTRUCTIONS: 1. No driving for 2 weeks, or until physician gives their ok. 2. No lifting, pushing, or pulling more than 10 pounds for 2 weeks. The physician will advise of any restriction changes. 3. Continue pain control per as needed orders. Alternate acetaminophen (Tylenol) and ibuprofen (Motrin/Advil) for pain. 4. Continue with incentive spirometry and splinting until otherwise directed by the physician. 5. Remove all dressings and shower daily. Only needs dressings if chest tube site is draining. 6. Routine incision care. No powders, lotions, ointments on incisions. 7. Please call surgeon/CONTROL SYSTEM COMPUTER SCIENTIST for temp greater than 101 F or purulent drainage from incisions. Discharge Disposition: TRANSFER TO SNF/ECF
[2018-11-28] MEDS: guaiFENesin 600 MG TABLET.ER PO SCH (10:53)
[2018-11-28] MEDS: NICOTINE 21MG/24HR PATCH TRANSDERM SCH (10:53)
[2018-11-28] MEDS: LEVOFLOXACIN 750 MG TAB PO SCH (10:53)
[2018-11-28] MEDS: HEPARIN SODIUM,PORCINE 5,000 UNIT/ML 1 ML VIAL SQ SCH (10:54)
[2018-11-28] MEDS: PIPERACILLIN-TAZOBACTAM 3.375 GM in SODIUM CHLORIDE 0.9% 100 ML IVPB SCH (11:00)
--- NOTE | 2018-11-28 11:45 | XR ---
EXAMINATION TYPE: XR chest 2V DATE OF EXAM: 11/28/2018 COMPARISON: 11/27/2018 INDICATION: Post lobectomy TECHNIQUE: Frontal and lateral views of the chest are obtained. FINDINGS: The heart size is normal. The pulmonary vasculature is normal. Air-fluid levels are noted in the anterior and posterior lung bacon likely on the left. There is carter vation left diaphragm. Left upper ribs are not well visualized. No obvious pneumothorax is evident in the lung apices. Air-fluid levels may be a hydropneumothorax from the lobectomy. Follow-up can be pe rformed.. IMPRESSION: 1. Air-fluid levels best visualized in the lateral projection post lobectomy. These were present prev iously. No new developing pneumothorax or other abnormality evident.
[2018-11-28 12:48] VITALS: BP 120/64; PULSE 87; TEMP 97.6
--- NOTE | 2018-11-28 14:16 | P.PN ---
Subjective Progress Note Date: 11/28/18 On 11/28/2018 I'm seeing Jem for a follow-up. Doing well. X-ray shows further improvement in the left lower lobe consolidation and currently is on 4 L of oxygen by nasal cannula. His cough is less congested on today's evaluation. No fever. No chills. Night sweats. Left upper extremity remains weak. The plan is to send this patient to [facility] for further rehabilitation. His white count is nonelevated. He is weak yet he is participating actively with physical therapy. He has a stage IIIa non-small cell lung cancer in the form of adenocarcinoma. Cardiac rhythm is sinus. No angina. No altered mentation. He was transferred out of the intensive care unit yesterday and today he is going to [facility]. Objective - Vital Signs Vital signs: Vital Signs Temp 97.6 F 11/28/18 08:00 Pulse 87 11/28/18 08:00 Resp 20 11/28/18 08:00 BP 120/64 11/28/18 08:00 Pulse Ox 97 11/28/18 08:00 Intake & Output 11/27/18 11/28/18 11/28/18 18:59 06:59 18:59 Intake Total 250 480 Output Total 400 275 50 Balance -400 -25 430 Weight 63.7 kg Intake: Oral 250 480 Output: Urine 400 275 50 Other: Voiding Method Urinal Urinal Urinal # Voids 1 1 1 # Bowel Movements 1 - Exam - Constitutional General appearance: Present: cooperative, no acute distress - Respiratory Details: lungs sounds diminished on the left. Respirations even, slightly dyspneic with conversation. The patient has a clear surgical wounds. Chest tubes are out. Breath sounds are diminished in the left lung base compared to the right. - Cardiovascular Details: S1, S2 present. Regular rate and rhythm, sinus rhythm on telemetry. Palpable peripheral pulses bilaterally. No lower extremity edema present, slight edema to left upper extremity remains. No calf pain or tenderness noted. SCDs present. - Gastrointestinal Gastrointestinal Comment(s): abdomen soft, nontender, nondistended. Active bowel sounds present 4 quadrants. Tolerating diet. Negative bowel movement since surgery. - Genitourinary Genitourinary Comment(s): Quintero present draining clear, yellow urine. Output 50-100 mL/h overnight. - Integumentary Integumentary Comment(s): Skin is warm and dry with evidence of good perfusion. Left lateral chest wall incisions well approximated. 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 As such, the motor function left upper extremities +1/5. No significant improvement or change in the motor function of the left upper extremity which remains profoundly weak. He is wearing a sling. - Musculoskeletal Musculoskeletal: Present: generalized weakness - Psychiatric Psychiatric: Present: A&O x's 3, appropriate affect, intact judgment & insight - Labs CBC & Chem 7: 11/28/18 05:56 11/28/18 05:56 Labs: Abnormal Lab Results - Last 24 Hours (Table) 11/28/18 11/28/18 Range/Units 05:56 05:56 WBC 10.8 H (3.8-10.6) k/uL RBC 3.10 L (4.30-5.90) m/uL Hgb 9.2 L (13.0-17.5) gm/dL Hct 29.2 L (39.0-53.0) % RDW 15.6 H (11.5-15.5) % Carbon Dioxide 32 H (22-30) mmol/L BUN 34 H (9-20) mg/dL Microbiology - Last 24 Hours (Table) 11/21/18 19:21 Blood Culture - Final Blood No Growth after 144 hours 11/21/18 19:29 Blood Culture - Final Blood No Growth after 144 hours Assessment and Plan Plan: 1 poorly differentiated stage IIIa non-small cell lung cancer in the form of adenocarcinoma. The patient underwent a left upper lobe resection and the patient will undergo a chest wall resection involving resection of the second and the third rib. Patient is postop day #9. The patient has developed a brachial plexopathy and he has significant weakness/paralysis of the left upper extremity which is a postoperative surgical complication. The patient has his chest tubes removed and the patient has a left lower lobe consolidation/pneumonia consistent with pneumococcal pneumonia. The patient is initially treated by Zosyn and currently he is going to be switched to oral Levaquin. Clinically the patient is improving. The left lower lobe consolidation is also improving. His competing course of Levaquin. Is doing daily walking the physical therapy. All of the chest is a been removed. He has stage III non- small cell lung cancer. He is going to [facility]. 2 acute hypoxic respiratory failure, expected outcome of surgery currently on 6 L of oxygen by nasal cannula. Patient has left lower lobe pneumonia with strep pneumo 3 COPD 4 streptococcal left lower lobe pneumonia 5 history of bladder cancer 6 history of prostate cancer 7 smoker 8 brachial plexopathy with left upper extremity paralysis Plan Continue oral Levaquin. Continue bronchodilators. Incentive spirometer. Daily walking. Physical therapy regarding left upper extremity weakness. He is currently on 4 L of oxygen by nasal cannula. He'll be transferred to a [facility] where he is going to [facility] for further rehabilitation.
== END 2018-11-28 12:19 | DRG 163 ==
LOC: 2ORMAIN 05:47 → 2SICU 14:49 → 3SCARD 11-28 01:12
PROVIDERS: ADMIT Thoracic Surgery (Cardiothoracic Vascular Surgery); ATTEND Thoracic Surgery (Cardiothoracic Vascular Surgery)
PROC: 0PB10ZZ Excision of 1 to 2 Ribs, Open Approach (ICD-10-PCS; principal; 2018-11-19 07:30)
PROC: 8E0W0CZ Robotic Assisted Procedure of Trunk Region, Open Approach (ICD-10-PCS; principal; 2018-11-19 07:30)
PROC: 0BTG0ZZ Resection of Left Upper Lung Lobe, Open Approach (ICD-10-PCS; principal; 2018-11-19 07:30)
PROC: 02QR0ZZ Repair Left Pulmonary Artery, Open Approach (ICD-10-PCS; principal; 2018-11-19 07:30)
PROC: 07D74ZX Extraction of Thorax Lymphatic, Percutaneous Endoscopic Approach, Diagnostic (ICD-10-PCS; principal; 2018-11-19 07:30)
DX: C34.12 Malignant neoplasm of upper lobe, left bronchus or lung (principal); J96.01 Acute respiratory failure with hypoxia; J15.4 Pneumonia due to other streptococci; J90 Pleural effusion, not elsewhere classified; J93.82 Other air leak; J98.11 Atelectasis; N39.0 Urinary tract infection, site not specified; T79.7XXA Traumatic subcutaneous emphysema, initial encounter; J44.0 Chronic obstructive pulmonary disease with (acute) lower respiratory infection; J44.1 Chronic obstructive pulmonary disease with (acute) exacerbation; I97.52 Accidental puncture and laceration of a circulatory system organ or structure during other procedure; E11.9 Type 2 diabetes mellitus without complications; E78.5 Hyperlipidemia, unspecified; F17.210 Nicotine dependence, cigarettes, uncomplicated; G54.0 Brachial plexus disorders; G93.0 Cerebral cysts; I10 Essential (primary) hypertension; K59.00 Constipation, unspecified; M19.90 Unspecified osteoarthritis, unspecified site; N40.0 Benign prostatic hyperplasia without lower urinary tract symptoms; T17.990A Other foreign object in respiratory tract, part unspecified in causing asphyxiation, initial encounter; Z53.20 Procedure and treatment not carried out because of patient's decision for unspecified reasons; Z85.46 Personal history of malignant neoplasm of prostate; Z85.51 Personal history of malignant neoplasm of bladder; Z86.718 Personal history of other venous thrombosis and embolism; Z90.2 Acquired absence of lung [part of]; Z53.32 Thoracoscopic surgical procedure converted to open procedure
CPT/HCPCS: 70460; 71045; 71046; 80048; 80053; 81001; 82805; 84145; 85025; 85027; 86850; 86900; 86901; 86920; 87040; 87070; 87077; 87086; 87186; 87205; 88305; 88309; 88341; 88342; 94640; 94667; 94668

== ENCOUNTER → 2019-03-09 | Outpatient (CLI) | payer MEDICARE, BC ==
[2019-03-09 14:15] LABS: African American GFR (CKD) >90 (>60 ml/min/1.73 sqM); Blood Urea Nitrogen 17 mg/dL (9-20)
--- NOTE | 2019-03-09 15:52 | CT ---
EXAMINATION TYPE: CT chest w con DATE OF EXAM: 03/09/2019 COMPARISON: NONE HISTORY: Lung CA CT DLP: 576 mGycm. Automated Exposure Control for Dose Reduction was Utilized. TECHNIQUE: CT scan of the thorax is performed following with IV Contrast, patient injected with 100 mL of Isovue 300. FINDINGS: LUNGS: In addition to the previously seen left apical heterogenous mass with internal necrosis. There is a new second mass seen. The first mass appears overall similar in size measuring approximately 5. 8 x 5.7 cm as opposed to 6.0 cm on the prior of 09/08/2018 with invasion into the left axillary soft ti ssues and displacement of ribs. A second more anterior left apical mass with invasion into the suprac lavicular soft tissues has developed. The full extent of this mass is not seen. The left subclavian a rtery courses directly through this mass. This mass measures at least 5.7 x 7.7 cm and again extends into the neck with a craniocaudal extent nonvisualized. On coronal image 44 this measured at least 6. 6 cm but is greater. This extends posteriorly to abut the rotator cuff musculature. A third mass is s een of the anterior left upper lobe abutting the mediastinum measuring approximately 4.9 x 2.9 cm. Un derlying extensive emphysematous changes are seen as well as small left pleural effusion and associat ed compressive atelectasis. Trace right pleural effusion is seen with bandlike scarring of the right lower lobe. Right apical pleural-parenchymal scarring. There is stability of a approximately 5 mm solid right lower lobe pulmonary nodule and 3 mm right mid dle lobe pulmonary nodule. MEDIASTINUM: Anterior left upper lobe mass abuts the mediastinal border near the prevascular space. N onenlarged lymph nodes are seen within the mediastinum. Extensive atherosclerosis of the thoracic aor ta and its branches. No central pulmonary embolus is seen although the exam is not optimized for eval uation of pulmonary embolus. Moderate coronary artery calcifications and small pericardial effusion. OTHER: There is erosion of the lateral and anterior margin of the left first rib, posterior left seco nd rib and third rib and displacement of the lateral third and fourth ribs with possible prior thorac otomy change of the anterior left upper ribs. Minimal multilevel degenerative disc disease of the tho racic spine. Too small to accurately characterize hepatic lesions are seen near the gallbladder fossa with diffuse heterogeneity of the of the liver likely on the basis of hepatic steatosis, limiting ev aluation of hepatic masses. Suspicious right adrenal gland nodule measures 1.6 x 2.1 cm, enlarged from the prior. There is cystic dilatation near the right ureter that could represent abdominal adenopathy or ureteral dilatation ho wever no right-sided hydronephrosis is seen. No left-sided hydronephrosis. Calcifications of the panc reas or in the basis of chronic pancreatitis. IMPRESSION: 1. In addition to the previously seen large left upper lobe mass there is a new left apical mass exte nding into the supraclavicular soft tissues and extending posteriorly to abut the rotator cuff muscul ature. The extent of this mass is not seen in craniocaudal dimension and could be further evaluated w ith CT neck. In the left subclavian artery courses through this mass and there is associated multifoc al rib erosion from both masses. A third anterior left upper lobe mass with adjacent loculated pleura l effusion abuts the mediastinum, approximately 2 mm from the ascending aorta. 2. Small left pleural effusion and trace right pleural effusion with bilateral compressive atelectasi s. 3. Advanced background emphysema with new right lower lobe linear bandlike scarring. 4. Enlarging right adrenal gland nodule that should be considered neoplasm until proven otherwise. To o small to accurately characterize hepatic lesions are also seen.
== END | disposition home or self-care (01) ==
LOC: RADCTMAIN 13:20
PROVIDERS: ATTEND Internal Medicine Hematology & Oncology
DX: J90 Pleural effusion, not elsewhere classified (principal); J98.11 Atelectasis; J34.9 Unspecified disorder of nose and nasal sinuses; C34.12 Malignant neoplasm of upper lobe, left bronchus or lung
CPT/HCPCS: 82565; 84520; 71260; 36415; Q9967